=== PATIENT | male | born 1960 | race Caucasian/White ===

== ENCOUNTER 2020-07-04 17:00 | Outpatient (CLI) | payer BC, SELFPAY ==
--- NOTE | ~2020-07-04 | XR_ITS ---
EXAMINATION: XR chest 2V DATE: 07/04/2020 17:17 INDICATION: Paralysis of vocal cords and larynx. TECHNIQUE: Frontal and lateral views of the chest were obtained. COMPARISON: None. FINDINGS: The chest demonstrates clear lungs without pneumonia, pleural effusion, or pneumothorax. Th e heart size is normal. There is mild chronic anterior wedging of multiple midthoracic vertebral bodi es. IMPRESSION: 1. No acute cardiopulmonary disease. Reviewed, dictated and finalized at location A.
== END 2020-07-04 17:01 | disposition home or self-care (01) ==
PROVIDERS: Visit Provider Otolaryngology
DX: J38.00 Paralysis of vocal cords and larynx, unspecified (principal)
CPT/HCPCS: 71046

== ENCOUNTER 2020-07-31 17:30 | Outpatient (CLI) | payer BC, SELFPAY ==
--- NOTE | ~2020-07-31 | CT_ITS ---
EXAMINATION: CT soft tissue neck chest w EXAM DATE: 07/31/2020 18:16 INDICATION: J38.00 - Paralysis of vocal cords and larynx, for 3 months. TECHNIQUE: Spiral CT of the neck and chest was performed following intravenous injection of 75 mL Omn ipaque 350. Axial, coronal and sagittal images of the neck were reviewed. Axial, coronal and sagitt al images of the chest were reviewed. Coronal maximum intensity pixel images of chest reviewed. The dose-length product (DLP) for this examination was 1008.57 mGy-cm. The exposure was tailored accord ing to patient size (auto mA exposure control), and iterative reconstruction (ASIR) was used as addit ional dose reduction technique. There is no prior study for comparison. FINDINGS: NECK: Slight asymmetry in position of vocal cords, but both are nearly midline at time of imaging. No cervical, supraclavicular or aortopulmonary mass along expected location of laryngeal nerves. The t hyroid gland is unremarkable. The submandibular and parotid glands are symmetric. There is no cer vical lymphadenopathy. There are no masses identified. The airway is unremarkable. Parapharynge al and pre-glottic fat planes are preserved. The opacified vasculature is patent. Mild left carotid bulb arteriosclerosis, no stenosis. The orbits are unremarkable. Moderate ethmoid mucoperiosteal thickening. Small to moderate-sized maxillary sinus retention cysts. Mastoid air cells are well aerat ed. There is moderate cervical spondylosis. Mild cervical thoracic levoscoliosis. CHEST: Dependent groundglass opacity, subsegmental atelectasis. Some scattered faint groundglass nodu lar opacities appearance most consistent with mild nonspecific bronchiolitis. Mild emphysema. There are no pleural or pericardial effusions. Tracheobronchial tree is patent. There is no mediastinal , hilar or axillary lymphadenopathy. There is no pneumothorax. Heart normal in size. There is m ild coronary arterial calcification, arterial sclerosis. Upper abdomen is unremarkable. There is m ild to moderate thoracic spondylosis without osteoblastic or osteolytic lesions identified. IMPRESSION: 1. No cervical or thoracic mass. 2. Scattered faint lung groundglass opacities, mild nonspecific bronchiolitis. 3. Mild emphysema. 4. Some ethmoid and maxillary opacity. Reviewed, dictated and finalized at location B.
== END 2020-07-31 17:31 | disposition home or self-care (01) ==
LOC: ANHIMG 17:31
PROVIDERS: Visit Provider Otolaryngology
DX: J38.00 Paralysis of vocal cords and larynx, unspecified (principal); J43.9 Emphysema, unspecified; R91.8 Other nonspecific abnormal finding of lung field
CPT/HCPCS: 70491; 71260; Q9967

== ENCOUNTER 2020-09-13 01:35 | Day surgery (SDC) | payer BC, SELFPAY ==
[2020-09-11 09:59] VITALS: BMI 25.8
--- NOTE | 2020-09-11 14:28 | PM.IMHP ---
H&P: HPI History of Present Illness Date/Time: 09/11/20 14:28 Patient presents for planned surgical procedures no changes in history or symptoms. Chief Complaint: Hoarse voice left vocal cord paresis Review of Systems Constitutional: Constitutional: Denies fatigue, Denies fever(s) and Denies lethargy Eyes: Eyes: Denies blurry vision and Denies change in vision ENT: Reports as per HPI Cardiovascular: Cardiovascular: Denies chest pain Respiratory: Respiratory: Denies cough Endocrine: Endocrine: Denies fatigue Hematologic/Lymphatic: Hematologic/Lymphatic: Denies easy bleeding, Denies easy bruising and Denies lymphadenopathy Allergic/Immunologic: Allergic/Immunologic: Denies seasonal rhinorrhea [facility] Social History Social History (Updated 07/04/20 @ 09:41 by Lauren Valles MA) Smoking packs per day: 1 Smoking cigarettes per day: 20.0 Years smoked: 20 Smoking pack-years: 20.00 Smoking status: Current every day smoker Tobacco type: cigarettes Alcohol intake: current Drinks per week: 3 Substance use: never Spiritual care concerns: No Meds Home Medications and Allergies Home Medications Medication Instructions Recorded Confirmed Type No Home Medications 07/04/20 09/11/20 History Allergies Allergy/AdvReac Type Severity Reaction Status Date / Time No Known Allergies Allergy Unknown Verified 09/11/20 09:57 Exam Const: General: cooperative, healthy appearing, comfortable, well developed and alert HENMT: Head: normal to inspection, normocephalic and atraumatic Ears: hearing grossly normal bilaterally, external ears normal, TM's normal bilaterally and EAC's normal General nose exam: Normal external nose present, Normal nares present, No nasal polyps present, Normal nasal mucous membranes and turbinates present and Normal septum present Face and sinus: normal facial exam Mouth: Yes Normal oral and palatal mucosa present, Yes lip normal, Yes tongue normal, Yes oropharynx normal and Yes moist mucous membranes Teeth and gingiva: dentition normal and gingiva normal Throat: posterior oropharynx normal, tonsils normal and uvula midline Eyes: General: appearance normal, both eyes and all related structures Periorbital: periorbital findings normal Eyelids: eyelids normal Conjunctivae: conjunctivae normal Sclera: sclerae normal Neck: Neck: normal visual inspection, full ROM and no lymphadenopathy Thyroid: thyroid normal Lymphatic: no lymphadenopathy noted Resp: Effort & Inspection: normal respiratory effort and able to speak in complete sentences Cardio: Jugular venous distension: no JVD Neuro: Cranial nerves: Yes CN's II-XII intact bilaterally Assessment and Plan Assessment and plan (1) Hoarseness: Code(s): R49.0 - Dysphonia Status: Acute Assessment and Plan: plan is for the operating room for direct laryngoscopy with endoscopic view. 20 minutes time period injection of left vocal cord with short-acting prolaryn. risks were discussed including need for tracheostomy damage to vocal cords need for further procedures failure to resolve symptoms. Patient voiced understanding of these risks and agreed. (2) Paresis of left vocal cord: Code(s): J38.01 - Paralysis of vocal cords and larynx, unilateral Status: Acute (3) Vocal cord weakness: Code(s): J38.00 - Paralysis of vocal cords and larynx, unspecified Status: Acute
[2020-09-13] VITALS (9 sets, daily range): BP systolic 117–173; BP diastolic 66–93; PULSE 42–52; RESP 10–18; TEMP 36.8–37; O2SAT 95–100
--- NOTE | 2020-09-13 07:03 | WPDHPUPDATE1 ---
History and Physical Update Update Date/Time: 09/13/20 07:03 History and Physical has been reviewed, including an updated exam of the patient. There are NO changes in the patient's condition. Risks, benefits, and alternatives have been discussed and questions answered. Patient agrees to proceed with procedure.
--- NOTE | 2020-09-13 10:04 | ECG_ITS ---
Measurements Intervals [place] Rate: 47 P: 47 [place]: 134 QRS: 7 QRSD: 99 T: 22 QT: 486 QTc: 434 Interpretive Statements SINUS BRADYCARDIA ABNORMAL ECG Electronically Signed On 09-13-2020 12:41:58 CDT by Baldomero Rivera D.O.
[2020-09-13] MEDS: ACETAMINOPHEN 500 MG TABLET 1000 MG PO (11:29)
[2020-09-13] MEDS: LACTATED RINGERS 1,000 ML 30 ML IV CONT ×2 (11:41→14:20)
--- NOTE | 2020-09-13 12:39 | P.PNAN_ITS ---
Anes - Initial Pre Proc Eval Procedure: Operation Date: 09/13/20 13:00 Proposed Procedures p Direct Laryngoscopy, with Vocal Cord Injection - David Floyd MD Date/Time: 09/13/20 12:39 Surgeon: David Floyd MD Pre Op Diagnosis: paralyzed vocal cords Patient Data Age: 60 Gender: M Height: 1.83 m Weight: 87.15 kg Last Vital Signs Temp 37.0 C 09/13/20 11:16 Pulse 52 L 09/13/20 11:16 Resp 16 09/13/20 11:16 BP 173/87 H 09/13/20 11:16 Pulse Ox 97 09/13/20 11:16 Allergies Allergy/AdvReac Type Severity Reaction Status Date / Time No Known Allergies Allergy Unknown Verified 09/13/20 11:18 Home Medications Medication Instructions Recorded Confirmed Type No Home Medications 07/04/20 09/13/20 History Patient hx anesthesia problems: none Family hx anesthesia problems: none [facility] Past Medical History Medical History (Updated 09/13/20 @ 12:40 by Brody Hernandez MD) Smoker Spermatocele Social History Social History Smoking packs per day: 1 Smoking cigarettes per day: 20.0 Years smoked: 20 Smoking pack-years: 20.00 Smoking status: Current every day smoker Tobacco type: cigarettes Alcohol intake: current Drinks per week: 3 Substance use: never Living arrangements: with family Spiritual care concerns: No Anes - Eval Final PreProcedure Day of Procedure 09/13/20 12:39 Patient weight: overweight Heart: regular rate and rhythm Lungs: clear to auscultation Airway: Mallampati scale class II Neurological: alert and oriented Last oral intake: >/= 8 hours ASA classification: II Emergent: no Anesthetic plan: proceed Anesthesia type and monitoring: general ETT and standard monitoring Informed Consent: The patient's anesthetic plan and its attendant risks and benefits were discussed with the patient/family/POA. Questions were solicited and answers provided to the satisfaction of the patient/family/POA.
[2020-09-13] MEDS: OXYMETAZOLINE HCL 0.05% NAS 15 ML BTL (*BKC) 1 SPRAY NASAL (13:44)
--- NOTE | 2020-09-13 14:04 | W.PM.PROC2 ---
Procedure Note - Detailed Date of Procedure 09/13/20 Pre-op Diagnosis left vocal cord paresis, hoarse voice Post-op Diagnosis same Procedure Performed 1. Direct laryngoscopy 2. Injection of left vocal cord Surgeon David Floyd MD Zoning Administrator none Anesthesia general Indications see above Findings 0.9 CC of Prolaryn gel injected just lateral to the thyroarytenoid muscle/complex. medialization of the left paretic cord Description of Procedure the patient was correctly identified and consent was verified in the preoperative holding area. The patient was then brought to the operating room and a time-out was performed. General anesthesia was induced and endotracheal tube was secured the patient's airway. The bed was then rotated and patient prepped for the aforementioned procedure. Maxillary tooth mouth guard was placed and all the instrumentation set up properly. Direct laryngoscopy was performed with the [employer] laryngoscope. The vocal cords were brought into view of the left was mildly atrophied. And more lateral than the right. Under endoscopic guidance the injectable was deposited lateral to the thyroid arytenoid musculature / complex medialization was noted. Two stab sites were made and injected. A total of 0.9 cc was injected. Excess was suctioned off of the injected sites. The patient was taken out of suspension, laryngoscope removed, and maxillary tooth mouth guard removed. This marked the end of the procedure. I performed all dictated portions. Care the patient was turned over to Anesthesiology. Drains No Packing No Pathology none sent Complications No immediate complications Condition stable Disposition PACU
== END 2020-09-13 15:30 | disposition home or self-care (01) ==
PROVIDERS: Visit Provider Otolaryngology
PROC: 0CJS8ZZ Inspection of Larynx, Via Natural or Artificial Opening Endoscopic (ICD-10-PCS; CPT 31570; principal; 2020-09-13 13:00)
DX: J38.01 Paralysis of vocal cords and larynx, unilateral (principal); R49.0 Dysphonia; F17.210 Nicotine dependence, cigarettes, uncomplicated
CPT/HCPCS: 31570; 93005; A9270; C1878; J0330; J1100; J2250; J2405; J2704; J3010; J7120

== ENCOUNTER 2023-10-01 09:44 | Observation (INO) | payer BC, SELFPAY ==
[2023-10-01] VITALS (8 sets, daily range): BP systolic 128–141; BP diastolic 75–87; PULSE 52–70; RESP 18–20; TEMP 36.2–36.6; O2SAT 92–97; BMI 28.9
--- NOTE | ~2023-10-01 | XR_ITS ---
EXAMINATION: XR chest 2V DATE: 10/01/2023 10:31 INDICATION: Chest pain. Shortness of breath. TECHNIQUE: Frontal and lateral views of the chest were obtained. COMPARISON: Chest 2 views 07/04/2020, chest CT 07/31/2020 FINDINGS: There is no pneumonia, pleural effusion, or pneumothorax. The heart size is normal. There i s mild chronic anterior wedging of multiple vertebral bodies. IMPRESSION: 1. No acute cardiopulmonary disease. Reviewed, dictated and finalized at location A.
--- NOTE | 2023-10-01 09:48 | ECG_ITS ---
Test Date: 2023-10-01 09:49:54 Measurements Intervals [place] Rate: 65 P: 58 NM: 136 QRS: -2 QRSD: 94 T: 33 QT: 402 QTc: 418 Interpretive Statements SINUS RHYTHM NORMAL ELECTROCARDIOGRAM No previous ECG available for comparison Electronically Signed On 10-01-2023 11:35:52 CDT by Hamlet Sharpe M.D.
[2023-10-01 10:21] LABS: Basophils Absolute Auto 0.1 K/mm3 (0.0-0.1); Basophils Percent Auto 0.6 % (0.2-1.2); Eosinophils Absolute Auto 0.2 K/mm3 (0-0.3); Eosinophils Percent Auto 2.6 % (0-4.4); Hematocrit 42.4 % (42.0-52.0); Hemoglobin 14.4 g/dL (14.0-18.0); Immature Granulocyte Absolute 0.03 K/mm3 (0.00-0.031); Immature Granulocyte Percent A 0.3 % (0-0.5); Lymphocytes Absolute Auto 2.52 K/mm3 (0.9-3.2); Lymphocytes Percent Auto 28.4 % (18.3-44.2); Mean Corpuscular Hemoglobin 33.6 pg (26-34); Mean Corpuscular Volume 99.1 fl (80-100); Monocytes Absolute Auto 0.7 K/mm3 (0.1-0.6); Monocytes Percent Auto 7.7 % (2.6-8.5); Neutrophils Absolute Auto 5.4 K/mm3 (1.3-6.7); Neutrophils Percent Auto 60.4 % (45.5-73.1); Platelet Count Result 227 k/mm3 (150-375); Red Blood Count 4.28 M/mm3 (4.6-6.20); Red Cell Distribution Width 13.7 % (11.5-14.5); White Blood Count 8.9 K/mm3 (4.5-10.0)
[2023-10-01 10:22] LABS: INR 0.9; Prothrombin Time 12.9 Seconds (11.1-14.7)
[2023-10-01 10:25] LABS: Alanine Aminotransferase 21 U/L (6-50); Albumin Level 4.6 g/dL (3.5-5.1); Alkaline Phosphatase 85 U/L (38-126); Anion Gap 6 mmol/L (4-12); Aspartate Amino Transferase 30 U/L (17-59); Bilirubin,Total 0.6 mg/dL (0.2-1.3); Blood Urea Nitrogen 16 mg/dL (9-20); Calcium 9.2 mg/dL (8.4-10.2); Carbon Dioxide 26 mmol/L (22-30); Chloride 106 mmol/L (98-107); Estimated CRCL calculation 82 ml/min; Estimated Glomerular Filt Rate > 60; Glucose 121 mg/dL (65-110); Lipase 67 U/L (23-300); Potassium 4.3 mmol/L (3.4-5.0); Sodium 138 mmol/L (137-145)
[2023-10-01 10:42] LABS: Troponin I 0.065 ng/mL (0.000-0.034)
[2023-10-01] MEDS: ASPIRIN 81 MG CHEWABLE TABLET 324 MG PO (11:02)
--- NOTE | 2023-10-01 11:05 | ED.CHESTPAIN ---
HPI - Chest Pain General Chief Complaint: Chest Pain Stated Complaint: chest pain Time Seen by Provider: 10/01/23 10:55 History of Present Illness HPI narrative: Patient is a 63-year-old male who presents ER with chest pain. Pressure in the center of his chest. Associated with dyspnea and weakness. This has been occurring over the last 3 days and only occurs when he exerts himself such as walking up stairs or walking across his home. It takes several meds for the symptoms to go away when he rests. No history of heart disease. He is a pack-a-day smoker. Recently return from [place]. Fluid back. No leg swelling. No pain with deep breath. No hemoptysis. Did have sinus congestion sore throat and cough for about a week after returning an it dissipated prior to his chest pain starting. Related Data Home Medications Medication Instructions Recorded Confirmed amlodipine 10 mg tablet 10 mg PO DAILY 10/01/23 10/01/23 Allergies Allergy/AdvReac Type Severity Reaction Status Date / Time No Known Allergies Allergy Unknown Verified 09/13/20 11:18 Review of Systems Review of Systems: All systems reviewed & are unremarkable except as noted in HPI and below Constitutional: Constitutional: Reports no additional constitutional complaints ENT: Reports nasal congestion and Reports sore throat Cardiovascular: Cardiovascular: Reports chest pain, Denies rapid heart rate and Denies radiating jaw, neck or arm pain Respiratory: Respiratory: Denies chest congestion, Reports cough, Reports dyspnea and Denies wheezing Gastrointestinal: Gastrointestinal: Reports no additional gastrointestinal complaints Musculoskeletal: Musculoskeletal: Reports no additional musculoskeletal complaints [facility] Past Medical History Medical History Smoker Spermatocele Surgical History Surgical History No history of previous surgery Social History Social History Smoking packs per day: 1 Smoking cigarettes per day: 20.0 Years smoked: 20 Smoking pack-years: 20.00 Smoking status: Current every day smoker Tobacco type: cigarettes Second hand tobacco smoke exposure: Yes Alcohol intake: current Drinks per week: 4 Substance use: never Substance use type: does not use Do You Feel Safe in your Home?: Yes Lack of Transportation: No Lack of Food: Never True Current Housing: I Have Housing Concerned About Future Housing: No Difficulty Paying Gas/Electric Bills: No Difficulty Paying for Meds: No Currently Unemployed: No Education: Bachelor's Degree Difficulty w/ Childcare or Family Care: No Living arrangements: with family Spiritual care concerns: No Exam Narrative: GENERAL: Well-appearing, well-nourished, and in no acute distress. HEAD: Normocephalic, atraumatic. EYES: PERRL. Left eye strabismus ENT: Mucous membranes moist. CHEST: Clear to auscultation. No respiratory distress. HEART: Regular rate and rhythm. Normal peripheral pulses. ABDOMEN: Soft, nontender, nondistended,. EXTREMITIES: Normal range of motion. No edema. SKIN: Warm, dry, no rash. NEURO: Alert and oriented x3. PSYCH: Normal mood and affect. Course Vital Signs Vital signs: Vital Signs Temperature 97.2 F L 10/01/23 09:49 Pulse Rate 70 10/01/23 09:49 Respiratory Rate 19 10/01/23 09:49 Blood Pressure 136/82 10/01/23 09:49 Pulse Oximetry 97 10/01/23 09:49 Oxygen Delivery Room Air 10/01/23 09:49 Temperature 97.8 F 10/01/23 13:01 Pulse Rate 55 L 10/01/23 14:00 Respiratory Rate 18 10/01/23 13:01 Blood Pressure 140/75 10/01/23 13:01 Pulse Oximetry 92 10/01/23 13:01 Oxygen Delivery Room Air 10/01/23 12:13 MDM - Chest Pain MDM Narrative Medical decision making narrative: -Course: Resting comfortably in the ER. No kian
[2023-10-01] MEDS: ENOXAPARIN 100 MG/ML SYRINGE 98 MG SUB-Q (12:04)
--- NOTE | 2023-10-01 12:42 | PM.IMHP ---
H&P: HPI History of Present Illness Date/Time: 10/01/23 12:42 Chief Complaint: Chest Pain Narrative: 63 y/o M presents here with chest pain with PMH of HTN and tobacco use. The patient presents here from home for further evaluation of chest pain. The patient reports onset of midsternal chest pain 2 to 3 days ago. Pain has gradually been worsening. Patient describes the chest pain as aching/burning, radiating into shoulders and bilateral arms (onset today), intermittent, episodes lasting an hour on average, aggravated by activity (walking up a flight of stairs, walking across the length of his home, or nay activity where he is moving for a slightly extended period), and alleviated by rest. Chest pain was precipitated by recent upper respiratory infection that began 2 weeks ago post-vacation. Reported sinus congestion, chest congestion, and minimally productive cough for one week. Cardiac history - none. Family history of cardiac disease - none. Drug use - none. The patient is a current every day smoker, estimates he uses 1PPD for the past 28 years approximately. Initial VS at presentation: 97.2? F, HR 70, RR 19, 136/82, and 97% on RA. ED workup showed: No leukocytosis, no anemia, normal coags, no significant electrolyte derangements, creatinine 0.9 and GFR >60, glucose 121, and initial troponin 0.065. Review of Systems Review of Systems: All systems reviewed & are unremarkable except as noted in HPI and below PMFSH Past Medical History Medical History HTN (hypertension) Smoker Spermatocele Surgical History Surgical History No history of previous surgery Social History Social History Smoking packs per day: 1 Smoking cigarettes per day: 20.0 Years smoked: 20 Smoking pack-years: 20.00 Smoking status: Current every day smoker Tobacco type: cigarettes Second hand tobacco smoke exposure: Yes Alcohol intake: current Drinks per week: 4 Substance use: never Substance use type: does not use Do You Feel Safe in your Home?: Yes Lack of Transportation: No Lack of Food: Never True Current Housing: I Have Housing Concerned About Future Housing: No Difficulty Paying Gas/Electric Bills: No Difficulty Paying for Meds: No Currently Unemployed: No Education: Bachelor's Degree Difficulty w/ Childcare or Family Care: No Living arrangements: with family Spiritual care concerns: No Meds Home Medications and Allergies Home Medications Medication Instructions Recorded Confirmed Type amlodipine 10 mg tablet 10 mg PO DAILY 10/01/23 10/01/23 History Allergies Allergy/AdvReac Type Severity Reaction Status Date / Time No Known Allergies Allergy Unknown Verified 10/01/23 15:33 Vital Signs Vital Signs - 24 hr 10/01/23 09:49 10/01/23 12:13 10/01/23 10:47 Temperature 97.2 F L Pulse Rate 70 60 Respiratory Rate 19 20 Blood Pressure 136/82 135/75 Pulse Oximetry 97 94 Oxygen Delivery Room Air Room Air 10/01/23 11:07 10/01/23 11:31 10/01/23 12:01 Temperature 97.8 F 97.9 F Pulse Rate 55 L 58 L 55 L Respiratory Rate 18 19 18 Blood Pressure 128/85 135/79 134/83 Pulse Oximetry 96 96 97 Oxygen Delivery 10/01/23 12:31 Temperature Pulse Rate 52 L Respiratory Rate 18 Blood Pressure 141/87 H Pulse Oximetry 97 Oxygen Delivery Exam Const: General: comfortable and no acute distress Other: , male, nontoxic appearance HENMT: Face/Nose/Sinus: Normal nares present Mouth: Yes moist mucous membranes Eyes: General: appearance normal, both eyes and all related structures Sclera: sclerae normal Pupils: Equal, round and reactive pupils present EOM: EOMs intact bilaterally Resp: Effort & Inspection: normal respiratory effort Auscultation: clear to auscultation bilaterally
--- NOTE | 2023-10-01 13:29 | ECG_ITS ---
Test Date: 2023-10-01 13:32:15 Measurements Intervals [place] Rate: 59 P: 49 NC: 146 QRS: 1 QRSD: 106 T: 14 QT: 425 QTc: 421 Interpretive Statements SINUS BRADYCARDIA MINIMAL VOLTAGE CRITERIA FOR LVH, CONSIDER NORMAL VARIANT [MEETS CRITERIA IN ONE OF: R(aVL), S(V1), R(V5), R(V5/V6)+S(V1)] ESSENTIALLY NORMAL ECG Compared to ECG 10/01/2023 09:49:54 NO SIGNIFICANT CHANGE Electronically Signed On 10-01-2023 18:19:57 CDT by Hamlet Sharpe M.D.
[2023-10-01 13:49] LABS: Cholesterol 184 mg/dL (0-200); HDL Direct 43 mg/dL; Triglycerides 107 mg/dL (<150)
[2023-10-01 13:59] LABS: LDL Cholesterol Direct 122 mg/dL
[2023-10-01 14:03] LABS: NT Pro B Type Natriuretic Pept 96 pg/mL (19.9-100); Troponin I 0.177 ng/mL (0.000-0.034)
--- NOTE | 2023-10-01 15:00 | ADMGEN ---
This patient, Dmitri Araya Jr., was admitted to IMU Room 212-01. Patient/family oriented to hospital policies and general routines including ID bracelet, bed and alarms, visiting hours, pain management, procedures, bathroom and other care routines, personal items, smoking policy, room service/diet, and visiting hours. Information on how to activate the Rapid Response Team has been discussed. Patient/Family are encouraged to report perceived risks to care and to ask questions if they do not understand what they are told or what they should do.
[2023-10-01 15:01] LABS: Hemoglobin A1C 5.7 % (<5.7)
--- NOTE | 2023-10-01 15:01 | PM.CNCAR ---
Assessment and Plan Assessment and plan (1) Unstable angina: Code(s): I20.0 - Unstable angina Status: Acute Plan this is a 63-year-old man presenting with the recent onset of symptoms consistent with an concerning for myocardial ischemia. He has no prior coronary history does have hypertension longstanding cigarette smoking. Fortunately his electrocardiogram looks normal however his troponin level has had a modest rise consistent with acute syndrome we will arrange for coronary angiography this afternoon and further recommendations of 4th will be forthcoming based on those findings Hamlet Sharpe MD [facility] History of Present Illness History of Present Illness Consult date/time: 10/01/23 15:01 Reason For Visit: Unstable Angina Narrative: This is a 63-year-old man who is being seen at the request of the hospitalist because of exertional chest pain consistent with new onset angina. The patient has no prior cardiac history and reports that he has been feeling somewhat unwell since he recently returned home from a vacation in [place]. He felt that he was ill with some sort of a virus with some chest congestion on the airplane and this continued after he arrived back at home. He might have been running S low-grade fever but he really did take his temperature. In the last several days the symptoms changed where he is having chest pain with exertion. Describes that with mild activity such as walking in the home or climbing a flight of stairs he will have central chest pain associated with dyspnea. The symptoms were more problematic earlier this morning and so he came to the emergency room for evaluation. His electrocardiograms look normal but his troponin levels were slightly elevated on the 1st sample and have her is to just over 0.1 on the 2nd sample. He was seen in the emergency room given aspirin a dosage of Lovenox and admitted to the [facility]. Upon seeing him in the IMU he is comfortable his son is in the room visiting came in to see him. He states that he has a history of hypertension for which he takes amlodipine but no other significant known medical problems. He is a long-standing cigarette smoker he has no knowledge of dyslipidemia or diabetes. There is no family history of coronary disease that he can recall Review of Systems Constitutional: Constitutional: Reports no additional constitutional complaints Eyes: Eyes: Reports no additional eye complaints ENT: Reports system reviewed and no additional complaints, except as documented Cardiovascular: Cardiovascular: Reports as per HPI and Reports chest pain Respiratory: Respiratory: Reports dyspnea on exertion Gastrointestinal: Gastrointestinal: Reports no additional gastrointestinal complaints Genitourinary: Genitourinary: Reports no additional male genitourinary complaints Musculoskeletal: Musculoskeletal: Reports no additional musculoskeletal complaints Integumentary/Breasts: Skin/Breast: Reports system reviewed and no additional complaints, except as docu Neurologic: Reports system reviewed and no additional complaints, except as documented Endocrine: Endocrine: Reports no additional endocrine complaints Hematologic/Lymphatic: Hematologic/Lymphatic: Reports no additional hematologic/lymphatic complaints Allergic/Immunologic: Allergic/Immunologic: Reports no additional allergic/immunologic complaints PMFSH Past Medical History Medical History Smoker Spermatocele Surgical History Surgical History No history of previous surgery Social History Social History Smoking packs per day: 1 Smoking cigarettes per day: 20.0 Years smoked: 20 Smoking pack-years: 20.00 Smoking status: Current every day smoker Tobacco type: cigarettes Second hand tobacco smoke exposure: Yes Alcohol
--- NOTE | 2023-10-01 15:05 | WPDMODSED ---
Moderate Sedation Note-Pt Data Patient Data Diagnosis: unstable angina Present Complaint: exertional chest pain Procedure to be performed/Plan: left heart catheterization Allergies Allergy/AdvReac Type Severity Reaction Status Date / Time No Known Allergies Allergy Unknown Verified 09/13/20 11:18 Home Medications Medication Instructions Recorded Confirmed Type amlodipine 10 mg tablet 10 mg PO DAILY 10/01/23 10/01/23 History Current Medications: Active Medications Acetaminophen (Acetaminophen 325 Mg Tablet) 650 mg PO Q4H PRN PRN Reason: Mild Pain (1-3) or Fever Hydrocodone Bitart/Acetaminophen (Hydrocodone/Acetaminophen (*Crx) 5-325 Mg Tablet) 1 tab PO Q4H PRN PRN Reason: Pain Rated 4-6 Enoxaparin Sodium (Enoxaparin 100 Mg/Ml Syringe) 98 mg SUB-Q Q12HR ISIDORO Morphine Sulfate (Morphine Sulfate (*Crx) 2 Mg/Ml Inj) 2 mg IV PUSH Q2H PRN PRN Reason: Pain Rated 7-10 Nitroglycerin (Nitroglycerin Sl 0.4 Mg Tablet) 0.4 mg SUBLINGUAL Q5MIN PRN PRN Reason: Chest Pain Ondansetron HCl (Ondansetron Inj 4 Mg/2 Ml Vial) 4 mg IV PUSH Q4H PRN PRN Reason: Nausea Sedation/Anesthesia: No previous sedation/anesthesia problems (including family history). [facility] Past Medical History Medical History Smoker Spermatocele Surgical History Surgical History No history of previous surgery Social History Social History Smoking packs per day: 1 Smoking cigarettes per day: 20.0 Years smoked: 20 Smoking pack-years: 20.00 Smoking status: Current every day smoker Tobacco type: cigarettes Second hand tobacco smoke exposure: Yes Alcohol intake: current Drinks per week: 4 Substance use: never Substance use type: does not use Do You Feel Safe in your Home?: Yes Lack of Transportation: No Lack of Food: Never True Current Housing: I Have Housing Concerned About Future Housing: No Difficulty Paying Gas/Electric Bills: No Difficulty Paying for Meds: No Currently Unemployed: No Education: Bachelor's Degree Difficulty w/ Childcare or Family Care: No Living arrangements: with family Spiritual care concerns: No Mod Sed Physical Exam Physical Exam Pre Procedural Exam: Normal: Appearance, Neck, Throat, Airway, Lungs, Heart Size, Heart Rate, Heart Rhythm, Neuro Exam and Extremities Hours since solid foods: 12 Hours since liquid intake: 12 Mallampati Classification: class II Internal Medicine - PN: Obj Da Vital Signs Vital Signs: Vital Signs - 24 hr 10/01/23 09:49 10/01/23 12:13 10/01/23 10:47 Temperature 36.2 C L Pulse Rate 70 60 Respiratory Rate 19 20 Blood Pressure 136/82 135/75 Pulse Oximetry 97 94 Oxygen Delivery Room Air Room Air 10/01/23 11:07 10/01/23 11:31 10/01/23 12:01 Temperature 36.6 C 36.6 C Pulse Rate 55 L 58 L 55 L Respiratory Rate 18 19 18 Blood Pressure 128/85 135/79 134/83 Pulse Oximetry 96 96 97 Oxygen Delivery 10/01/23 12:31 10/01/23 13:01 Temperature 36.6 C Pulse Rate 52 L 61 Respiratory Rate 18 18 Blood Pressure 141/87 H 140/75 Pulse Oximetry 97 92 Oxygen Delivery Meds/Results Medications: Active Medications Generic Name Dose Route Start Last Admin Trade Name Freq PRN Reason Stop Dose Admin Acetaminophen 650 mg 10/01/23 12:31 Acetaminophen 325 Mg Tablet PO Q4H PRN Mild Pain (1-3) or Fever Hydrocodone Bitart/Acetaminophen 1 tab 10/01/23 12:31 Hydrocodone/Acetaminophen (*Crx) 5-325 Mg Tablet PO Q4H PRN Pain Rated 4-6 Enoxaparin Sodium 98 mg 10/01/23 21:00 Enoxaparin 100 Mg/Ml Syringe SUB-Q Q12HR ISIDORO Morphine Sulfate 2 mg 10/01/23 12:31 Morphine Sulfate (*Crx) 2 Mg/Ml Inj IV PUSH Q2H PRN Pain Rated 7-10 Nitroglycerin 0.4 mg 10/01/23 14:13 Nitroglycerin Sl 0.4 Mg Tablet SUBLINGUAL
--- NOTE | 2023-10-01 15:21 | PC.NURSE ---
Dr veliz has been in to speak with pt and is recommending a cardiac cath, consent is signed, OR tech is here to get pt ready and take him down, lia koenig is also in the room to see pt, son will go with them to pacu
--- NOTE | 2023-10-01 15:34 | PC.NURSE ---
pt taken up to rd lab technician with tech
--- NOTE | 2023-10-01 16:51 | PC.NURSE ---
pt belongings sent with son up to offset label rewinder
--- NOTE | 2023-10-01 17:17 | WPDCARDPROC ---
Cardiac Cath Procedure Note Date of procedure:: 10/01/23 Performing physician:: Hamlet Sharpe MD Indication:: accelerating/unstable angina Brief clinical history:: this is a 63-year-old man with no previous coronary history who came into the hospital earlier today with 4-5 day history of exertional chest pain typical of angina. His electrocardiogram was normal but he has had a mole small troponin rise. The patient does have hypertension and cigarette smoke in his history. In this setting left heart catheterization has been recommended. Procedure Procedure performed:: Left ventriculogram coronary angiogram PCI (JUAREZ) to the proximal LAD Sedation/Medication given:: fentanyl 50 mg Versed 2 mg case start time 154 case end time 4:28 p.m. sedation provided by Kera Mccarthy RN, trained observer Access site:: right femoral artery Estimated blood loss:: 25 cc Procedure note:: patient was brought to the cardiac catheterization lab in the postabsorptive state where the right femoral triangle was prepared and draped in the normal fashion. Anesthesia was provided with 1% lidocaine infiltrated locally. Using modified Seldinger technique a 5 [place] sheath was placed into the right femoral artery. After this left heart catheterization was carried out. A 5 [place] angled pigtail catheter was used to measure left-sided hemodynamics and to inject LV g in the 30 degree MOORE projection. Following this the left coronary artery was engaged and injected using a 5 [place] FL4 catheter. The right coronary artery was engaged and injected using a 5 [place] JR4 catheter. The cineangiograms were reviewed and PCI of the LAD was recommended and carried out as detailed below. Prior to PCI the 5 [place] sheath was exchanged over a guidewire for 6 [place] sheath. The patient was systemically anticoagulated with a bolus and infusion of Angiomax. He was given 600 mg of clopidogrel orally prior to PCI. He had received 325 mg of aspirin in the emergency room and was given no additional aspirin in the cath lab nurse. Following completion of PCI to the LAD lesion as described below it was obvious the patient had contrast staining proximal to the stent in the proximal LAD and distal left main. Subsequent angiography demonstrated obvious catheter dissection of the left main coronary artery. There was still JOEY 3 flow in the left coronary artery however. Patient does have ischemic ST segment depression and moderate ischemic chest pain at this time. Given the fact that he has a catheter related left main dissection he is being transferred by helicopter anticoagulated with heparin to [facility] for high-risk PCI of the left main coronary artery versus surgical revascularization. Findings:: Hemodynamics: Central aortic pressure was 1 38 68 left ventricle 138 over by end-diastolic pressure 16 left ventricle: The LV is normal in size all segments contract vigorously the global ejection fraction is 60-65% by visual estimation. The mid anterior wall is slightly hypodynamic. The left main coronary artery is medium in caliber and widely patent the left anterior descending is a large caliber vessel extending down to the apex. There is a high-grade stenosis of 80-90% in the proximal LAD in the origin of the proximal diagonal branch which is a medium caliber vessel. There is distal plaquing in the LAD but no flow-limiting disease. The circumflex is a large caliber vessel which is dominant to the posterior circulation. The circumflex , its marginal and posterior branches are free of significant disease. The right coronary artery is non dominant gives rise to 2 RV branches. There is mild nonocclusive atherosclerosis in the RCA. Intervention: The left coronary artery was engaged using a 6 [place] CLS 3.5 guiding catheter. A 0.014 BMW wire was advanced into the LAD easily into the distal apical portion of the vessel. Th
--- NOTE | 2023-10-01 21:26 | PM.TDS ---
Transfer Discharge Sum: Prov Provider Date of admission: 10/01/23 12:32 Primary care physician: UNKNOWN,DOCTOR Admitting clinician: Chucky Villalpando MD Attending physician on admission: Grady Villalpando Consults: 10/01/23 12:33 Consult to Physician Routine Comment: Consulting Provider: Hamlet Sharpe Reason for consultation: unstable angina Has provider been notified: Yes Attending physician on discharge: Martha Bob Discharging clinician: Malissa Corrales Anticipated date of transfer: 10/01/23 Receiving physician/facility: [place], [place] DS: Admitting Diagnosis Discharge Date 10/01/23 Admitting Diagnosis Unstable angina DS: Discharge Diagnosis Discharge Diagnosis Plan Discharge Diagnosis: 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 Initial troponin elevated at 0.065. Started on Lovenox 1 mg/kg b.i.d. Cardiology was consulted and elected to move forward with a cardiac catheterization this afternoon after shared decision making with patient. During the cardiac catheterization, patient was found to have high-grade stenosis of 80-90% in the proximal LAD in the origin of the proximal diagonal branch which is a medium caliber vessel. There is distal plaquing in the LAD but no flow-limiting disease. PCI to the proximal LAD lesion, as described in cardiac cath report, with a nice angiographic result in that vessel however the angiograms demonstrate occlusion of the medium-sized proximal diagonal branch which was at the site of the target lesion as well as unfortunate catheter-induced dissection of the left main coronary artery. Due to the dissection, patient was emergently transferred via helicopter to [facility] for higher level of care. Transfer initiated and completed by Dell TRINIDAD. Time Spent with Patient Time attestation: Total time spent providing and/or coordinating transfer services: Total time spent: Less than 30 minutes Exam Const: General: comfortable and no acute distress Other: , male, nontoxic appearance HENMT: Face/Nose/Sinus: Normal nares present Mouth: Yes moist mucous membranes Eyes: General: appearance normal, both eyes and all related structures Sclera: sclerae normal Pupils: Equal, round and reactive pupils present EOM: EOMs intact bilaterally Neck: Neck: supple and no JVD Resp: Effort & Inspection: normal respiratory effort Auscultation: clear to auscultation bilaterally Cardio: Rate: regular rate Rhythm: regular rhythm Other: S1-S2 present without murmur, rub, ectopy Skin: General skin exam: normal color and no rashes or lesions noted Wounds: no wounds Neuro: General: gait normal Speech: normal speech Motor exam (neuro): 5/5 motor strength present throughout Sensory Exam: normal sensation Other: A&O x4 Extrem: General: normal to inspection Psych: Mental Status: mental status grossly normal Affect: normal affect Other: Good insight and judgment, pleasant DS: Data Data Completed and Pending Labs on day of discharge: Labs from last 24 hours 10/01/23 10/01/23 13:29 09:56 WBC 8.9 RBC 4.28 L Hgb 14.4 Hct 42.4 MCV 99.1 MCH 33.6 MCHC 34.0 RDW 13.7 Plt Count 227 MPV 10.0 Immature Gran % (Auto) 0.3 Neut % (Auto) 60.4 Lymph % (Auto) 28.4 [place] % (Auto) 7.7 Eos % (Auto) 2.6 Baso % (Auto) 0.6 Lymph # (Auto) 2.52 [place] # (Auto) 0.7 H Eos # (Auto) 0.2 Baso # (Auto) 0.1 Abs Immat Gran (auto) 0.03 Absolute Neuts
== END 2023-10-01 17:43 | disposition short-term general hospital (02) ==
LOC: ANHED 11:33 → ANHIMU 13:26
PROVIDERS: Specialist; Student in an Organized Health Care Education/Training Program; Admitting Provider Internal Medicine; Emergency Provider Emergency Medicine; Visit Provider Internal Medicine
PROC: 4A023N7 Measurement of Cardiac Sampling and Pressure, Left Heart, Percutaneous Approach (ICD-10-PCS; CPT 93452; principal; 2023-10-01 15:00)
DX: I25.110 Atherosclerotic heart disease of native coronary artery with unstable angina pectoris (principal); I97.51 Accidental puncture and laceration of a circulatory system organ or structure during a circulatory system procedure; I25.42 Coronary artery dissection; Y84.0 Cardiac catheterization as the cause of abnormal reaction of the patient, or of later complication, without mention of misadventure at the time of the procedure; I10 Essential (primary) hypertension; F17.210 Nicotine dependence, cigarettes, uncomplicated; Z79.899 Other long term (current) drug therapy
CPT/HCPCS: 36415; 71046; 80053; 80061; 83036; 83690; 83880; 84484; 85025; 85610; 85730; 93005; 93458; 96372; 99285; A9270; C1725; C1769; C1874; C1887; C1894; C9600; G0378; J0583; J1644; J1650; J2250; J2270; J3010; J7040

== ENCOUNTER 2024-04-26 08:50 | Outpatient (CLI) | payer BC, SELFPAY ==
--- OUTSIDE RECORDS SUMMARY | 2024-04-26 09:24 | XMS_ITS | Referral Summary ---
Author Organization [facility] Address [address] [place] [address] Care Team Providers Care Brusher Warp Name Role Phone Rosalino Saleem DO Primary Care Provider [phone] Source Comments [facility],non-owned Affiliates and Associated Physician Practices is amultiple site organization consisting of ambulatory clinics and hospital sitesin [place], [place], [place] and [place]. This disclosure is being madepursuant to the Care Everywhere program and may not contain all information available regarding this patient. Last updated 17.[facility] [place] Allergies No known active allergies Social History Tobacco Use Types Packs/Day Years Used Date Smoking Tobacco: Never Assessed Sex and Gender Information Value Date Recorded Sex Assigned at Not on file Gender Identity Not on file Sexual Orientation Not on file Plan of Treatment Not on file Procedures Procedure Name Priority Date/Time Associated Diagnosis Comments HEPATITIS C RNA QUANTITATIVE 08/06/2020 1:23 PM CDT from Last 3 Months or Most Recently Relevant to Health Maintenance Results * HEPATITIS C RNA QUANTITATIVE (08/06/2020 1:23 PM CDT) Hepatitis C Virus RNA, Quantitative Real Time PCR <15 NOT DETECTED NOT DETECTED IU/mL [facility] Hepatitis C Virus RNA, Quantitative Real Time PCR <1.18 NOT DETECTED NOT DETECTED Log IU/mL [facility] Comment: This test was performed using Real-Time Polymerase Chain Reaction. Reportable Range: 15 IU/mL to 100,000,000 IU/mL (1.18 Log IU/mL to 8.00 Log IU/mL). The analytical performance characteristics of this assay have been determined by [employer]. The modifications have not been cleared or approved by the FDA. This assay has been validated pursuant to the CLIA regulations and is used for clinical purposes. For more information on this test, go to: http://education.CareinSync.Rewardix/faq/IOR23f7 (This link is being provided for informational/ educational purposes only.) Test Performed at: [email or web address] [employer] [address] 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
--- OUTSIDE RECORDS SUMMARY | 2024-04-26 09:24 | XMS_ITS | Referral Summary ---
Author Organization [facility] Address [address] [place] [address] Care Team Providers Care Hospital Administrative Assistant Name Role Phone Louie Gee MD Unavailable Rusty Ramsey MD Primary Care Provider Allergies Active Allergy Reactions Criticality Noted Date Comments Lisinopril Cough Low 11/09/2023 Medications aspirin 81 mg enteric coated tabletIndicatio ns:cardiovascul ar disease Take 1 tablet (81 mg total) by mouth daily 30 tablet 10/04/2023 5 Active clopidogreL (PLAVIX) 75 mg tabletIndicatio ns:myocardial infarction prevention,card iovascular disease Take 1 tablet (75 mg total) by mouth daily 30 tablet 10/04/2023 5 Active metoprolol tartrate (LOPRESSOR) 25 mg immediate release tabletIndicatio ns:cardiovascul ar disease Take 1 tablet (25 mg total) by mouth 2 (two) times a day 60 tablet 10/03/2023 5 Active rosuvastatin (CRESTOR) 40 mg tabletIndicatio ns:myocardial infarction prevention Take 1 tablet (40 mg total) by mouth nightly 30 tablet 10/03/2023 5 Active amLODIPine (NORVASC) 10 mg tablet Take 1 tablet (10 mg total) by mouth daily Active Active Problems Problem Noted Date Diagnosed Date Mixed hyperlipidemia 11/09/2023 Impaired glucose tolerance 10/03/2023 Coronary artery disease invo lving belkofski coronary artery of belkofski heart 10/02/2023 Hypertension, essential 10/02/2023 Tobacco dependence 10/02/2023 Obstructive sleep apnea 10/02/2023 NSTEMI (non-ST elevated myocardial infarction) ( [facility]) 10/01/2023 Left main coronary artery dissection 10/01/2023 Social History Tobacco Use Types Packs/Day Years Used Date Smoking Tobacco: Former Cigarettes 03 28 Smokeless Tobacco: Never Tobacco Cessation:Counseling Given: Not Answered Personal Safety Answer Date Recorded Have you ever been in or are you currently in a harmful physical or emotional relationship or is someone making you feel afraid or unsafe? Denies 10/01/2023 Sex and Gender Information Value Date Recorded Sex Assigned at Not on file Legal Sex Male 4:27 PM CDT Gender Identity Male 10/01/2023 6:26 PM CDT Sexual Orientation Not on file Last Filed Vital Signs Vital Sign Reading Time Taken Comments Blood Pressure 124/74 11/09/2023 3:28 PM CDT Pulse 58 11/09/2023 3:28 PM CDT Temperature 36.8 C (98.2 F) 10/03/2023 8:30 AM CDT Respiratory Rate 20 10/03/2023 8:30 AM CDT Oxygen Saturation 96% 11/09/2023 3:28 PM CDT Inhaled Oxygen Concentration - - Weight 99.3 kg (219 lb) 11/09/2023 3:28 PM CDT Height 182.9 cm (6') 11/09/2023 3:28 PM CDT Body Mass Index 29.7 11/09/2023 3:28 PM CDT Plan of Treatment Not on file Medical Devices Implanted Type Area Salesperson New Cars Device Identifier Shelf Expiration Date Model / Serial / Lot [employer] A[employer]y Stent Drug Eluting S Megatron Us Mr [id number] - S0 - [id number] Implanted:Qty : 1 on 10/01/2023 by Louie Gee MD at [facility] Stent N/A: Coronary [employer] Kayy 01/03/2025 [id number] / 0 / [id number] [employer] Kayy Stent Drug Eluting S Megatron Us Mr [id number] - S0 - [id number] Implanted:Qty : 1 on 10/01/2023 by Louie Gee MD at [facility] Stent N/A: Coronary [employer] Kayy 01/17/2025 [id number] / 0 / [id number] [employer] V[employer] System Closure Repair Femoral Artery Suture Mediated Perclose Prostyle 16840-98 - S0 - [id number] Implanted:Qty : 1 on 10/01/2023 by Louie Gee MD at [facility] Vascular Closure Device Right: Femoral [employer] 06/28/2025 [id number] / 0 / [id number] Insurance [facility] [employer] Advance Directives For more information, please contact: [phone] * Full Code (Latest Code Status on File) Date Activated Date Inactivated Comments 10/01/2023 6:37 PM 10/03/2023 3:50 PM Care Teams Hospital Administrative Assistant Relationship Specialty Start Date End Date Rusty Ramsey MD [address] [facility] [place] [address] [place] [address] PCP - General Family Medicine 11/09/23 Louie Gee MD [address] [facility] [place] [address] Consulting Physician Cardiology 10/03/23
--- OUTSIDE RECORDS SUMMARY | 2024-04-26 09:24 | XMS_ITS | Encounter Summary ---
Author Organization [facility] Address [address] [place] [address] Care Team Providers Care Institute Scientist Name Role Phone Unavailable Primary Care Provider Unavailabl e Encounter Details Date Type Department Care Team (Late st Contact Info) Description 04/26/2024 Transcribe Orders [facility] Pre Access Team [address] [place] [address] Mateusz King MD [address] [place] [address] Social History Tobacco Use Types Packs/Day Years Used Date Smoking Tobacco: Never Assessed Sex and Gender Information Value Date Recorded Sex Assigned at Not on file 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
--- OUTSIDE RECORDS SUMMARY | 2024-04-26 09:24 | XMS_ITS | Clinical Summary ---
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 Gender Identity Not on file Sexual Orientation Not on file Plan of Treatment Health Maintenance Due Date Last Done Comments Colorectal Cancer Screening Colonoscopy (10 Years) 1961 Annual Physical 1964 Hepatitis C 08/14/1979 DTaP, Tdap and Td Vaccines ( 1 - Tdap) 1980 Zoster Vaccines (1 of 2) 08/14/2011 COVID-19 Vaccine (2023-2 5 season) 2023 Influenza Adult (#1) 2023 RSV Immunization or 60+ Years (1 - 1-dose 75+ series) 2036 Meningococcal B Vaccine Aged Out No l onger eligible based on patient's age to complete this topic Meningococcal Vaccine Aged Out No filemon miguel eligible based on patient's age to complete this topic Pneumococcal Vaccine: Pediat rics (0 to 5 Years) and At-Risk Patients (6 to 64 Years) Aged Out No longer eligible b ased on patient's age to complete this topic RSV Immunizations Under 20 Months Aged Out No longer eligible based on patient's age to complete this topic
--- OUTSIDE RECORDS SUMMARY | 2024-04-26 09:24 | XMS_ITS | Continuity of Care Document ---
Author Name [facility] Organization [facility] Care Team Providers Care Stagecraft Professor Name Role Phone [facility] Unavailable Unavailable Allergies, Adverse Reactions, Alerts Combined list of allergies from Department of Defense and Veterans Affairs facilities. It does not include entries that were removed or entered in error. Substance Category Reaction Severity Reaction type Status Date Reported Comments Source No Known Allergies Drug allergy (disorder) active 0 [facility] Procedures Combined list of: 1) Procedures from Department of Veterans Affairs facilities going back up to thelast 18 months, not all [place] non-surgical procedures are included; 2) All procedures from the Department of Defense facilities. Procedure Procedure Type Code Date Perfomer Comments Sour e TYMPANOMETRY (IMPEDANCE TESTING) 01/04/2001 [facility] POLYSOMNOGRAPHY; AGE 6 YEARS OR OLDER, SLEEP STAGING WITH 4 OR MORE ADDITIONAL PARAMETERS OF SLEEP, ATTENDED BY A TECHNOLOGIST 10/07/2000 [facility] POLYSOMNOGRAPHY; AGE 6 YEARS OR OLDER, SLEEP STAGING WITH 4 OR MORE ADDITIONAL PARAMETERS OF SLEEP, ATTENDED BY A TECHNOLOGIST 10/06/2000 [facility] NASOPHARYNGOSCOPY WITH ENDOSCOPE (SEPARATE PROCEDURE) 08/23/2000 [facility] POLYSOMNOGRAPHY; AGE 6 YEARS OR OLDER, SLEEP STAGING WITH 4 OR MORE ADDITIONAL PARAMETERS OF SLEEP, ATTENDED BY A TECHNOLOGIST 05/28/2000 [facility] Social History Combined list of available smoking, tobacco, and other social history from Department of Defense and Veterans Affairs facilities. Social History Type Response Date Comment Sourc e This section is an empty social history section. [facility]
--- OUTSIDE RECORDS SUMMARY | 2024-04-26 09:24 | XMS_ITS | Patient Health Summary ---
Author Organization [facility] Address [address] [place] [address] Care Team Providers Care Roadway Designer Name Role Phone Rosalino Saleem Primary Care Provider [phone] Note from [facility],non-owned Affiliates and Associated Physician Practices is amultiple site organization consisting of ambulatory clinics and hospital sitesin [place], [place], [place] and [place]. This disclosure is being madepursuant to the Care Everywhere program and may not contain all information available regarding this patient. Last updated 17.[facility] [employer] Allergies No known active allergies Social History Tobacco Use Types Packs/Day Years Used Date Smoking Tobacco: Never Assessed Sex and Gender Information Value Date Recorded Sex Assigned at Not on file Gender Identity Not on file Sexual Orientation Not on file Procedures * HEPATITIS C RNA QUANTITATIVE(Performed 08/06/2020) * PT-INR(Performed 08/06/2020) * CBC W AUTO DIFFERENTIAL(Performed 08/06/2020) * COMPREHENSIVE METABOLIC PANEL(Performed 08/06/2020) * LIVER FIBROSIS PANEL(Performed 02/03/2020) Performed for Hepatitis C virus infection without hepatic coma, unspecified chronicity, Elevated LFTs * HEPATITIS C GENOTYPE(Performed 02/03/2020) Performed for Hepatitis C virus infection without hepatic coma, unspecified chronicity, Elevated LFTs Results * HEPATITIS C RNA QUANTITATIVE (08/06/2020 [...] of this assay have been determined by [employer]. The modifications have not been cleared or approved by the FDA. This assay has been validated pursuant to the CLIA regulations and is used for clinical purposes. For more information on this test, go to: http://Sticher.Intent/faq/YKP83a7 (This link is being provided for informational/ educational purposes only.) Test Performed at: [facility] [id number] [place] [address] [address] JARQUIN DO,MPH 08/06/2020 1:23 PM CDT 08/06/2020 1:25 PM CDT Juarez Lepe APRN-GONZALO LAB - HAND THERMAL CUTTER RY ORDERABLES Performing Organization Address [facility] de Phone Number [facility] [address] [place] [address] * PT-INR (08/06/2020 1:23 PM CDT) INR 1.0 [facility] Comment: Reference Range 0.9-1.1 Moderate-intensity Warfarin Therapy 2.0-3.0 Higher-intensity Warfarin Therapy 3.0-4.0 PT 10.3 9.0 - 11.5 sec [facility] Comment: For additional information, please refer to http://Sticher.Intent/faq/MUA654 (This link is being provided for informational/ educational purposes only.) Test Performed at: [facility] [id number] [place] [address] [address] JARQUIN DO,MPH 08/06/2020 1:23 PM CDT 08/06/2020 1:25 PM CDT Juarez RODRIGUEZ LAB - COAGULA TION ORDERABLES Performing Organization Address [facility] Co de Phone Number [facility] [address] [place] [address] * (ABNORMAL) CBC WITH DIFFERENTIAL (08/06/2020 1:23 PM CDT) White Blood Cell Count 7.5 3.8 - 10.8 Thousand/u L [facility] RBC 3.98(L) 4.20 - 5.80 Million/uL [facility] Hemoglobin 13.3 13.2 - 17.1 g/dL [facility] Hematocrit 39.2 38.5 - 50.0 % [facility] MCV 98.5 80.0 - 100.0 fL [facility] MCH 33.4(H) 27.0 - 33.0 pg [facility] MCHC 33.9 32.0 - 36.0 g/dL [facility] RDW 12.9 11.0 - 15.0 % [facility] Platelet Count 221 140 - 400 Thousand/u L [facility] MPV 11.1 7.5 - 12.5 fL [facility] Neutrophil Absolute 4005 1500 - 7800 cells/uL [facility] Lymphocytes Absolute 2580 850 - 3900 cells/uL [facility] Absolute Monocytes 600 200 - 950 cells/uL [facility] Eosinophils Absolute 278 15 - 500 cells/uL [facility] Basophils Absolute 38 0 - 200 cells/uL [facility] Granulocytes % 53.4 % [facility] Lymphocytes % 34.4 % [facility] Monocytes % 8.0 % [facility] Eosinophils % 3.7 % [facility] Basophils % 0.5 % [facility] Comment: Test Performed at: [facility] [id number] [place] [address] [address] JARQUIN DO,MPH 08/06/2020 1:23 PM CDT 08/06/2020 1:25 PM CDT Juarez Lepe ARTILLERY OFFICER-BRIMMER BLOCKER LAB - HEMATOL OGY ORDERABLES [facility] [address] [place] [address] * COMPREHENSIVE METABOLIC PANEL (08/06/2020 1:23 PM CDT) Pathologist [facility] Glucose 90 65 - 99 mg/dL [facility] Comment: Fasting reference interval BUN 19 7 - 25 mg/dL [facility] Creatinine 0.86 0.70 - 1.33 mg/dL [facility] Comment: For patients >49 years of age, the reference limit for Creatinine is approximately 13% higher for people identified as -Egyptian. eGFR by MDRD 96 > OR = 60 mL/min/1 .73m2 [facility] eGFR by MDRD 111 > OR = 60 mL/min/1 .73m2 [facility] BUN/Creatinine Ratio NOT APPLICABLE 6 - 22 (calc) [facility] Sodium 139 135 - 146 mmol/L [facility] Potassium 4.0 3.5 - 5.3 mmol/L [facility] Chloride 106 98 - 110 mmol/L [facility] CO2 26 20 - 32 mmol/L [facility] Calcium 9.3 8.6 - 10.3 mg/dL [facility] Protein Total 6.6 6.1 - 8.1 g/dL [facility] Albumin 4.1 3.6 - 5.1 g/dL [facility] Globulin Total 2.5 1.9 - 3.7 g/dL (calc) [facility] Albumin/Globulin Ratio 1.6 1.0 - 2.5 (calc) [facility] Bilirubin Total 0.4 0.2 - 1.2 mg/dL [facility] Alkaline Phosphatase 71 35 - 144 U/L [facility] AST 25 10 - 35 U/L [facility] ALT 15 9 - 46 U/L [facility] Comment: Test Performed at: [facility] [id number] [place] [address] [address] JARQUIN DO,MPH 08/06/2020 1:23 PM CDT 08/06/2020 1:25 PM CDT Juarez Lepe ARTILLERY OFFICER-BRIMMER BLOCKER LAB - HAND THERMAL CUTTER RY ORDERABLES Performing Organization Address City/State/[facility] Co de Phone Number [facility] [address] [place] [address] * (ABNORMAL) LIVER FIBROSIS PANEL (02/03/2020 12:09 PM ASSEMBLER ARRANGER) Fibrosis Score 0.75 [facility] Fibrosis Stage F4 [facility] Interpretation Fibrosis SEE NOTE [facility] Comment: severe fibrosis Fibro Test Score (f) Metavir Score f>=0 and f<=0.21 : F0 (no fibrosis) f>0.21 and f<=0.27 : F0-F1 (no fibrosis) f>0.27 and f<=0.31 : F1 (minimal fibrosis) f>0.31 and f<=0.48 : F1-F2 (minimal fibrosis) f>0.48 and f<=0.58 : F2 (moderate fibrosis) f>0.58 and f<=0.72 : F3 (advanced fibrosis) f>0.72 and f<=0.74 : F3-F4 (advanced fibrosis) f>0.74 and f<=1.00 : F4 (severe fibrosis) Necroinflammat Activity Score 0.58 [facility] Necroinflammat Activity Grade A2 [facility] Interpretation Necroinflammat SEE NOTE [facility] Comment: significant activity ActiTest Score (a) Metavir Score a>=0 and a<=0.17 : A0 (no activity) a>0.17 and a<=0.29 : A0-A1 (no activity) a>0.29 and a<=0.36 : A1 (minimal activity) a>0.36 and a<=0.52 : A1-A2 (minimal activity) a>0.52 and a<=0.60 : A2 (significant activity) a>0.60 and a<=0.62 : A2-A3 (significant activity) a>0.62 and a<=1.00 : A3 (severe activity) Ouzgj-3-Sknlrlgkoid ins Quantitative 299(H) 106 - 279 mg/dL [facility] Haptoglobin 10(L) 43 - 212 mg/dL [facility] Apolipoprotein A-1 127 94 - 176 mg/dL [facility] Bilirubin Total 0.4 0.2 - 1.2 mg/dL [facility] GGT 18 3 - 85 U/L [facility] ALT 68(H) 9 - 46 U/L [facility] Reference ID [id number] [facility] Footnote SEE NOTE [facility] Comment: The reliability of results is dependent on compliance with the preanalytical and analytical conditions recommended by [employer]. The tests have to be deferred for: acute hemolysis, acute hepatitis, acute inflammation, extra hepatic cholestasis. The advice of a specialist should be sought for interpretation in chronic hemolysis and Gilbert's syndrome. The test interpretation is not validated in liver transplant patients. Isolated extreme values of one of the components should lead to caution in interpreting the results. In case of discordance between a biopsy result and a test, it is recommended to seek the advice of a specialist. The causes of these discordances could be due to a flaw of the test or to a flaw in the biopsy: i.e. a liver biopsy has a 33% variability rate for one fibrosis stage. FibroTest is interpretable for chronic hepatitis B and C, alcoholic and non alcoholic steatosis. ActiTest is interpretable for chronic hepatitis B and C. The performance characteristics have been determined by [facility]. It has not been cleared or approved by the U.S. Food and Drug Administration. Performance characteristics refer to the analytical performance of the test. [employer], [employer], the associated logo, [employer] and all associated [employer] way are the registered trademarks of [employer]. All third green party way - (R) and (TM) - are the property of their respective owners. (C) 6823-5315 [employer]. All rights reserved. Test Performed at: [facility] [facility] [address] [place] [address] MARY ABURTO MD,PHD,MALDONADO Blood BLOOD SPECIMEN / Unknown 02/03/2020 12:09 PM ASSEMBLER ARRANGER 02/03/2020 12:11 PM ASSEMBLER ARRANGER Juarez Lepe APRN-GONZALO LAB - HAND THERMAL CUTTER RY ORDERABLES Performing Organization Address [facility] Co de Phone Number [facility] [address] [place] [address] * HEPATITIS C GENOTYPE (02/03/2020 12:09 PM ASSEMBLER ARRANGER) Hepatitis C Virus Genotype LIPA 3 [facility] Comment: The method used in this test is RT-PCR and reverse hybridization (Line Probe) of the 5' UTR and core region of the HCV genome. The analytical performance characteristics of this assay have been determined by [facility]. The modifications have not been cleared or approved by the FDA. This assay has been validated pursuant to the CLIA regulations and is used for clinical purposes. For additional information, please refer to http://education.PredPol /faq/HCVGenotyping (This link id being provided for informational/ educational purposes only.) Test Performed at: [facility] [address] [place] [address] Skylar CASEY Blood BLOOD SPECIMEN / Unknown 02/03/2020 12:09 PM ASSEMBLER ARRANGER 02/03/2020 12:11 PM ASSEMBLER ARRANGER Juarez Lpee APRN-BRIMMER BLOCKER LAB - HAND THERMAL CUTTER RY ORDERABLES Performing Organization Address [facility] Co de Phone Number [facility] [address] [place] [address] Care Teams Roadway Designer Relationship Specialty Start Date End Date Rosalino Saleem DO [address] [address] PCP - General Family Medicine 01/08/20
--- OUTSIDE RECORDS SUMMARY | 2024-04-26 09:24 | XMS_ITS | Clinical Summary ---
Author Organization [facility] Address [address] [address] Care Team Providers Care Director Of Primary Care Name Role Phone CameronRosalino oates Primary Care Provider [phone] Source Comments [facility],non-owned Affiliates and Associated Physician Practices is amultiple site organization consisting of ambulatory clinics and hospital sitesin [place], [place], [place] and [place]. This disclosure is being madepursuant to the Care Everywhere program and may not contain all information available regarding this patient. Last updated 17.[facility] Allergies No known active allergies Social History Tobacco Use Types Packs/Day Years Used Date Smoking Tobacco: Never Assessed Sex and Gender Information Value Date Recorded Sex Assigned at Not on file Gender Identity Not on file Sexual Orientation Not on file Plan of Treatment Health Maintenance Due Date Last Done Comments COLOGUARD (AGES 45-75) - COLON CA SCREENING 1961 COLON MONITORING 1961 COLONOSCOPY - COLON CA SCREENING 1961 CT COLONOGRAPHY - COLON CA SCREENING 1961 Colorectal Cancer Screening 1961 FIT - COLON CA SCREENING 1961 FLEX SIG - COLON CA SCREENING 1961 LIPID TESTING 1961 HIV SCREENING 1976 DTAP/TDAP/TD VACCINES (1 - Tdap) 1980 PNEUMOCOCCAL VACCINE 50+ (1 of 1 - PCV) 08/14/2011 ZOSTER VACCINE (1 of 2) 08/14/2011 COVID-19 VACCINE (1 - 2023-25 season) 2023 INFLUENZA VACCINE (#1) 2023 DEPRESSION SCREENING 03/01/2024 Respiratory Syncytial Virus (RSV) Vaccine Pt: or over 60 yrs (1 - 1-dose 75+ series) 2036 HEPATITIS C SCREENING Completed 08/06/2020 , 06/11/2020, 02/21/2020, Additional history exists HEPATITIS B VACCINE Aged Out No longe r eligible based on patient's age to complete this topic HIB VACCINE Aged Out No longer eligi ble based on patient's age to complete this topic HPV VACCINE Aged Out No longer eligi ble based on patient's age to complete this topic MENINGOCOCCAL (Group B) VACCINE Aged Out No longer eligible based on patient's age to complete this topic MENINGOCOCCAL VACCINE Aged Out No filemon miguel eligible based on patient's age to complete this topic PNEUMOCOCCAL VACCINE Aged Out No long er eligible based on patient's age to complete this topic Procedures Procedure Name Priority Date/Time Associated Diagnosis Comments HEPATITIS C RNA QUANTITATIVE 08/06/2020 1:23 PM CDT from Last 3 Months or Most Recently Relevant to Health Maintenance Results * HEPATITIS C RNA QUANTITATIVE (08/06/2020 1:23 PM CDT) [facility] Hepatitis C Virus RNA, Quantitative Real Time PCR <15 NOT DETECTED NOT DETECTED IU/mL [facility] Hepatitis C Virus RNA, Quantitative Real Time PCR <1.18 NOT DETECTED NOT DETECTED Log IU/mL [facility] Comment: This test was performed using Real-Time Polymerase Chain Reaction. Reportable Range: 15 IU/mL to 100,000,000 IU/mL (1.18 Log IU/mL to 8.00 Log IU/mL). The analytical performance characteristics of this assay have been determined by [employer] The modifications have not been cleared or approved by the FDA. This assay has been validated pursuant to the CLIA regulations and is used for clinical purposes. For more information on this test, go to: http://education.Termii webtech limited.Marine Life Research/faq/WNW22y9 (This link is being provided for informational/ educational purposes only.) Test Performed at: [facility] [address] [place] [address] [address] JARQUIN DO,MPH 08/06/2020 1:23 PM CDT 08/06/2020 1:25 PM CDT Juarez Lepe MANUFACTURING ELECTRICIAN-NEGATIVE DEVELOPER LAB - ENDLESS BED DRUM SANDER RY ORDERABLES [facility] [address] [place] [address] from Last 3 Months or Most Recently Relevant to Health Maintenance Care Teams Director Of Primary Care Relationship Specialty Start Date End Date Rosalino Saleem DO [address] [place] [address] PCP - General Family Medicine 01/08/20
--- OUTSIDE RECORDS SUMMARY | 2024-04-26 09:24 | XMS_ITS | Clinical Summary ---
Author Organization [facility] Address [address] [place] [address] Care Team Providers Care Pharmacy Technician Name Role Phone Louie Gee MD Unavailable [...] tolerance 10/03/2023 Coronary artery disease invo lving [place] coronary artery of [place] heart 10/02/2023 Hypertension, essential 10/02/2023 Tobacco dependence 10/02/2023 Obstructive sleep apnea 10/02/2023 NSTEMI (non-ST elevated myocardial infarction) ( CMS/HCC) 10/01/2023 Left main coronary artery dissection 10/01/2023 Medical History Medical History Date Comments Hypertension YANI on CPAP Social History Tobacco Use Types Packs/Day Years Used Date Smoking Tobacco: Former Cigarettes 1 28 Smokeless Tobacco: Never Tobacco Cessation:Counseling Given: [...] PM CDT Sexual Orientation Not on file Obstetrics History Last Filed Vital Signs Vital Sign Reading [...] 11/09/2023 3:28 PM CDT Plan of Treatment Health Maintenance Due Date Last Done Comments Colon Cancer Screening-Colonoscopy 1961 Depression Screening 1961 Hepatitis C Screening 1961 Prostate Cancer Screening-PSA 1961 DTaP/Tdap/Td Vaccine (1 - Tdap) 1972 Hepatitis B Screening 08/14/1979 Regular Well Visit/Exam 18-64 08/14/1979 Influenza Vaccine (#1) 2023 12/13/2019 Zoster Vaccine Completed 04/01/2020, 01/03/2020 Pneumococcal vaccine <65 Aged Out No longer eligible based on patient's age to complete this topic Medical Devices Implanted Type Area Electric Range Assembler Device Identifier Shelf Expiration Date Model / Serial / Lot [employer] Kayy Stent Drug Eluting S Megatron Us Mr [id number] - S0 - [id number] Implanted:Qty : 1 on 10/01/2023 by Louie Gee MD at [facility] Stent N/A: Coronary [employer] Kayy 01/03/2025 [id number] / 0 / [id number] [employer] Kayy Stent Drug Eluting S Megatron Us Mr [id number] - S0 - [id number] Implanted:Qty : 1 on 10/01/2023 by Louie Gee MD at [facility] Stent N/A: Coronary [employer] Kayy 01/17/2025 [id number] / 0 / [id number] Cartwright Vascular System Closure Repair Femoral Artery Suture Mediated Perclose Prostyle 12361-19 - S0 - [id number] Implanted:Qty : 1 on 10/01/2023 by Louie Gee MD at [facility] Vascular Closure Device Right: Femoral [employer] 06/28/2025 [id number] / 0 / [id number] Insurance [facility] FEDERAL Advance Directives For more information, please contact: [phone] * Full Code (Latest Code Status on File) Date Activated Date Inactivated Comments 10/01/2023 6:37 PM 10/03/2023 3:50 PM Care Teams Pharmacy Technician Relationship Specialty Start Date End Date Rusty Ramsey MD [address] [facility] [address] [place] [address] PCP - General Family Medicine 11/09/23 Louie Gee MD [address] [facility] [address] [place] [address] Consulting Physician Cardiology 10/03/23
--- OUTSIDE RECORDS SUMMARY | 2024-04-26 09:24 | XMS_ITS | Clinical Summary ---
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 [employer] Gender Identity Not on file Sexual Orientation Not on file Plan of Treatment Health Maintenance Due Date Last Done Comments Pre-Diabetes and Diabetes Screening 1961 DTAP/TDAP/TD VACCINES (1 - Tdap) 1980 COLORECTAL SCREENING 2006 Colorectal Cancer Screening 2006 FIT-DNA Q 3 years 2006 FIT/FOBT Q 1 year 2006 Flex Sig/CT Colonography Q 5 years 2006 ZOSTER VACCINE (1 of 2) 08/14/2011 RSV VACCINE (60+ or ) (1 - Risk 60-74 years 1-dose series) 2021 INFLUENZA VACCINE (#1) 2023 PNEUMOCOCCAL VACCINE 0-64 YEARS Aged Out No longer eligible based on patient's age to complete this topic Insurance [facility] FEDERAL
== END 2024-04-26 08:51 | disposition home or self-care (01) ==
LOC: CHSCARD 08:52
PROVIDERS: PCP Family Medicine; Visit Provider Family Medicine
DX: R13.10 Dysphagia, unspecified (principal); R05.3 Chronic cough; R94.2 Abnormal results of pulmonary function studies
CPT/HCPCS: 94060; 94726; 94729

== ENCOUNTER 2024-05-05 17:11 | Outpatient (CLI) | payer BC, SELFPAY ==
--- NOTE | ~2024-05-05 | XR_ITS ---
CHEST RADIOGRAPH, PA AND LATERAL CLINICAL HISTORY: cough/sob x2 months . COMPARISON: 10/01/2023 TECHNIQUE: PA and lateral views of the chest. FINDINGS Interval development of elevation of the right hemidiaphragm with adjacent compressive atelectasis. Retained oral contrast is identified within multiple loops of small and large bowel. No significant peribronchial thickening. The lungs are otherwise clear. The cardiomediastinal silhouette is unremarkable. IMPRESSION: Last imaging performed 6 months earlier. Significant elevation of the right hemidiaphragm when compared with last examination for which CT exa mination of the abdomen and pelvis is recommended unless the source of the elevation is a known findi ng. The lungs are otherwise clear. Reviewed, dictated and finalized at location A. [facility] IMPRESSION: Last imaging performed 6 months earlier. Significant elevation of the right hemidiaphragm when compared with last examin ation for which CT examination of the abdomen and pelvis is recommended unless the source of the elevation is a known finding. The lungs are otherwise clear.
--- OUTSIDE RECORDS SUMMARY | 2024-05-05 17:15 | XMS_ITS | Clinical Summary ---
Author Organization [facility] Address [address] [place] [address] Care Team Providers Care Cane Pusher Name Role Phone CameronRosalino oates Primary Care Provider [phone] Source Comments [facility],non-owned Affiliates and Associated Physician Practices is amultiple site organization consisting of ambulatory clinics and hospital sitesin [place], [place], [place] and [place]. This disclosure is being madepursuant to the Care Everywhere program and may not contain all information available regarding this patient. Last updated 17.[facility] Allergies No known active allergies Social History [...] C RNA QUANTITATIVE (08/06/2020 1:23 PM CDT) [facility] Hepatitis C Virus RNA, Quantitative Real Time PCR <15 NOT DETECTED NOT DETECTED IU/mL [facility] Hepatitis C Virus RNA, Quantitative Real Time PCR <1.18 NOT DETECTED NOT DETECTED Log IU/mL [facility] Comment: This test was performed using Real-Time Polymerase Chain Reaction. Reportable Range: 15 IU/mL to 100,000,000 IU/mL (1.18 Log IU/mL to 8.00 Log IU/mL). The analytical performance characteristics of this assay have been determined by [facility] [employer]. The modifications have not been cleared or approved by the FDA. This assay has been validated pursuant to the CLIA regulations and is used for clinical purposes. For more information on this test, go to: http://education.Ecovative Design.Appsindep/faq/MNZ88i1 (This link is being provided for informational/ educational purposes only.) Test Performed at: [facility] [address] [place] [address] [address] JARQUIN DO,MPH 08/06/2020 1:23 PM CDT 08/06/2020 1:25 PM CDT Juarez Lepe GLUE SPECIALTY SUPERVISOR-PROFESSIONAL WRESTLER LAB - PROTECTIVE OFFICER RY ORDERABLES [facility] [address] [place] [address] from Last 3 Months or Most Recently Relevant to Health Maintenance Care Teams Cane Pusher Relationship Specialty Start Date End Date Rosalino Saleem DO [address] [facility] [address] [place] [address] PCP - General Family Medicine 01/08/20
--- OUTSIDE RECORDS SUMMARY | 2024-05-05 17:15 | XMS_ITS | Patient Health Summary ---
Author Organization [facility] Address [address] [place] [address] Care Team Providers Care Director Global Name Role Phone Rosalino Saleem Primary Care Provider Note from [facility],non-owned Affiliates and Associated Physician Practices is amultiple site organization consisting of ambulatory clinics and hospital sitesin [place], [place], [place] and [place]. This disclosure is being madepursuant to the Care Everywhere program and may not contain all information available regarding this patient. Last updated 17.[facility] [employer] Allergies No known active allergies Social History [...] of this assay have been determined by [facility]. The modifications have not been cleared or approved by the FDA. This assay has been validated pursuant to the CLIA regulations and is used for clinical purposes. For more information on this test, go to: http://Incentivyze.Open Garden/faq/IFK60s3 (This link is being provided for informational/ educational purposes only.) Test Performed at: [facility] [address] [place] [address] [address] JARQUIN DO,MPH 08/06/2020 1:23 PM CDT 08/06/2020 1:25 PM CDT Juarez Lepe APRN-[facility] LAB - BLEACH BOILER FILLER RY ORDERABLES Performing Organization Address [facility] de Phone Number [facility] [address] [place] [address] * PT-INR (08/06/2020 1:23 PM CDT) INR 1.0 [facility] Comment: Reference Range 0.9-1.1 Moderate-intensity Warfarin Therapy 2.0-3.0 Higher-intensity Warfarin Therapy 3.0-4.0 PT 10.3 9.0 - 11.5 sec [facility] Comment: For additional information, please refer to http://Incentivyze.Open Garden/faq/DSS260 (This link is being provided for informational/ educational purposes only.) Test Performed at: [facility] [address] [place] [address] [address] JARQUIN DO,MPH 08/06/2020 1:23 PM CDT 08/06/2020 1:25 PM CDT Juarez RODRIGUEZ LAB - COAGULA TION ORDERABLES Performing Organization Address [facility] Co de Phone Number [facility] [address] [place] [address] * (ABNORMAL) CBC WITH DIFFERENTIAL (08/06/2020 1:23 [...] 0.5 % [facility] Comment: Test Performed at: [facility] [address] [place] [address] [address] JARQUIN DO,MPH 08/06/2020 1:23 PM CDT 08/06/2020 1:25 PM CDT Juarez Lepe DRILL FOREMAN-AUDIOVISUAL LIBRARIAN LAB - HEMATOL OGY ORDERABLES [facility] [address] [place] [address] * COMPREHENSIVE METABOLIC PANEL (08/06/2020 1:23 PM CDT) Pathologist [facility] Glucose 90 65 - 99 mg/dL [facility] Comment: Fasting reference interval BUN 19 7 - 25 mg/dL [facility] Creatinine 0.86 0.70 - 1.33 mg/dL [facility] Comment: For patients >49 years of age, the reference limit for Creatinine is approximately 13% higher for people identified as -Tuvaluan. eGFR by MDRD 96 > OR = [...] 46 U/L [facility] Comment: Test Performed at: [facility] [address] [place] [address] [address] JARQUIN DO,MPH 08/06/2020 1:23 PM CDT 08/06/2020 1:25 PM CDT Juarez Lepe DRILL FOREMAN-AUDIOVISUAL LIBRARIAN LAB - BLEACH BOILER FILLER RY ORDERABLES Performing Organization Address City/State/[facility] Co de Phone Number [facility] [address] [place] [address] * (ABNORMAL) LIVER FIBROSIS PANEL (02/03/2020 12:09 PM CORN SHUCKER) Fibrosis Score 0.75 [facility] Fibrosis Stage F4 [...] a>0.62 and a<=1.00 : A3 (severe activity) Pwcpp-8-Dcchaztklar ins Quantitative 299(H) 106 - 279 mg/dL [facility] Haptoglobin 10(L) 43 - 212 mg/dL [facility] Apolipoprotein A-1 127 94 - 176 mg/dL [facility] Bilirubin Total 0.4 0.2 - 1.2 mg/dL [facility] GGT 18 3 - 85 U/L [facility] ALT 68(H) 9 - 46 U/L [facility] Reference ID [id number] [facility] Footnote SEE NOTE [facility] Comment: The reliability of results is dependent on compliance with the preanalytical and analytical conditions recommended by Cover. The tests have to be deferred for: [...] The performance characteristics have been determined by [facility]. It has not been cleared or approved by the U.S. Food and Drug Administration. Performance characteristics refer to the analytical performance of the test. [employer], [facility], the associated logo, [employer] and all associated [employer] way are the registered trademarks of [facility]. All third alliance party way - (R) and (TM) - are the property of their respective owners. (C) [id number] [facility] [employer]. All rights reserved. Test Performed at: [facility] [address] [place] [address] MARY ABURTO MD,PHD,MALDONADO Blood BLOOD SPECIMEN / Unknown 02/03/2020 12:09 PM CORN SHUCKER 02/03/2020 12:11 PM CORN SHUCKER Juarez Lepe APRN-G[facility]O LAB - BLEACH BOILER FILLER RY ORDERABLES Performing Organization Address [facility] Co de Phone Number [facility] [address] [place] [address] * HEPATITIS C GENOTYPE (02/03/2020 12:09 PM CORN SHUCKER) Hepatitis C Virus Genotype LIPA 3 [facility] Comment: The method used in this test is RT-PCR and reverse hybridization (Line Probe) of the 5' UTR and core region of the HCV genome. The analytical performance characteristics of this assay have been determined by [facility]. The modifications have not been cleared or approved by the FDA. This assay has been validated pursuant to the CLIA regulations and is used for clinical purposes. For additional information, please refer to http://education.Battlefy /faq/HCVGenotyping (This link id being provided for informational/ educational purposes only.) Test Performed at: [facility] [address] [place] [address] Skylar CASEY Blood BLOOD SPECIMEN / Unknown 02/03/2020 12:09 PM CORN SHUCKER 02/03/2020 12:11 PM CORN SHUCKER Juarez Lepe APRN-AUDIOVISUAL LIBRARIAN LAB - BLEACH BOILER FILLER RY ORDERABLES Performing Organization Address [facility] Co de Phone Number [facility] [address] [place] [address] Care Teams Director Global Relationship Specialty Start Date End Date Rosalino Saleem DO [address] [address] PCP - General Family Medicine 01/08/20
--- OUTSIDE RECORDS SUMMARY | 2024-05-05 17:15 | XMS_ITS | Continuity of Care Document ---
Author Name [facility] Organization [facility] Care Team Providers Care Semiconductor Technician Name Role Phone [facility] Unavailable Unavailable Allergies, Adverse Reactions, Alerts Combined list of allergies from Department of Defense and Veterans Affairs facilities. It does not include entries that were removed or entered in error. Substance Category Reaction Severity Reaction type Status Date Reported Comments Source No Known Allergies Drug allergy (disorder) active 0 [facility] Procedures Combined list of: 1) Procedures from Department of Veterans Affairs facilities going back up to thelast 18 months, not all [place] non-surgical procedures are included; 2) All procedures from the Department of Defense facilities. Procedure Procedure Type Code Date Perfomer Comments Sour e TYMPANOMETRY (IMPEDANCE TESTING) 01/04/2001 [facility] POLYSOMNOGRAPHY; AGE 6 YEARS OR OLDER, SLEEP STAGING WITH 4 OR MORE ADDITIONAL PARAMETERS OF SLEEP, ATTENDED BY A TECHNOLOGIST 10/07/2000 [facility] POLYSOMNOGRAPHY; AGE 6 YEARS OR OLDER, SLEEP STAGING WITH 4 OR MORE ADDITIONAL PARAMETERS OF SLEEP, ATTENDED BY A TECHNOLOGIST 10/06/2000 [facility] NASOPHARYNGOSCOPY WITH ENDOSCOPE (SEPARATE PROCEDURE) 08/23/2000 [facility] POLYSOMNOGRAPHY; AGE 6 YEARS OR OLDER, SLEEP STAGING WITH 4 OR MORE ADDITIONAL PARAMETERS OF SLEEP, ATTENDED BY A TECHNOLOGIST 05/28/2000 [facility] Social History Combined list of available smoking, tobacco, and other social history from Department of Defense and Veterans Affairs facilities. Social History Type Response Date Comment Sourc e This section is an empty social history section. [facility]
--- OUTSIDE RECORDS SUMMARY | 2024-05-05 17:15 | XMS_ITS | Referral Summary ---
Author Organization [facility] Address [address] [place] [id number] Care Team Providers Care Ham Rolling Machine Operator Name Role Phone Rosalino Saleem DO Primary Care Provider [phone] Source Comments [facility],non-owned Affiliates and Associated Physician Practices is amultiple site organization consisting of ambulatory clinics and hospital sitesin [place], [place], [place] and [place]. This disclosure is being madepursuant to the Care Everywhere program and may not contain all information available regarding this patient. Last updated 17.[facility] [employer] Allergies No known active allergies Social History [...] of this assay have been determined by [employer]. The modifications have not been cleared or approved by the FDA. This assay has been validated pursuant to the CLIA regulations and is used for clinical purposes. For more information on this test, go to: http://education.[employer].Sassor/faq/KOZ16i2 (This link is being provided for informational/ educational purposes only.) Test Performed at: [facility] [address] [facility] [place] [address] [address] JARQUIN DO,MPH 08/06/2020 1:23 PM CDT 08/06/2020 1:25 PM CDT Juarez Lepe RN RECOVERY-ALARM MECHANIC LAB - CLIENT SUPPORT ASSOCIATE RY ORDERABLES [facility] [address] [place] [address] from Last 3 Months or Most Recently Relevant to Health Maintenance Care Teams Ham Rolling Machine Operator Relationship Specialty Start Date End Date Rosalino Saleem DO [address] [facility] [address] [place] [address] PCP - General Family Medicine 01/08/20
--- OUTSIDE RECORDS SUMMARY | 2024-05-05 17:15 | XMS_ITS | Clinical Summary ---
Author Organization [facility] Address [address] [place] [address] Care Team Providers Care Clinical Unit Educator Name Role Phone Uzma Haynes MD Primary Care Provider [phone] Encounters Date Type Department Care Team Description 05/02/2024 1:43 PM VEST BUSHELER - 05/02/2024 11:59 PM VEST BUSHELER Hospital Encounter [facility] [address] [place] [address] Uzma Haynes MD Arrived Discharge Disposition: Home or Self Care (Routine Discharge) 04/26/2024 Transcribe Orders [facility] Pre Access Team [address] [place] [address] Uzma Haynes MD from Last 3 Months Social History Tobacco Use Types Packs/Day Years Used Date Smoking Tobacco: Never Assessed Sex and Gender Information Value Date Recorded Sex Assigned at Not on file Legal Sex Male 7:20 AM VEST BUSHELER Gender Identity Not on file Sexual Orientation Not on file Plan of Treatment Health Maintenance Due Date Last Done Comments Colorectal Cancer Screening Colonoscopy (10 Years) 1961 Annual Physical 1964 DTaP, Tdap and Td Vaccines ( 1 - Tdap) 1980 COVID-19 Vaccine (2023-2 5 season) 2023 12/15/2021, 02/05/2021, 05/09/2020 Influenza Adult (#1) 2023 12/13/2019 RSV Immunization or 60+ Years (1 - 1-dose 75+ series) 2036 Zoster Vaccines Completed 04/01/2020, 01/03/2020 Hepatitis C Completed 08/06/2020 Meningococcal B Vaccine Aged Out No l onger eligible based on patient's age to complete this topic Meningococcal Vaccine Aged Out No filemon miguel eligible based on patient's age to complete this topic Pneumococcal Vaccine: Pediatrics (0 to 5 Years) and At-Risk Patients (6 to 64 Years) Aged Out No longer eligible b ased on patient's age to complete this topic RSV Immunizations Under 20 Months Aged Out No longer eligible b ased on patient's age to complete this topic Procedures Procedure Name Priority Date/Time Associated Diagnosis Comments XR ESOPHAGRAM/BARIUM SWALLOW Routine 05/02/2024 2:19 PM VEST BUSHELER Dysphagia, unspecified from Last 3 Months Results * XR ESOPHAGRAM/BARIUM SWALLOW (05/02/2024 2:19 PM VEST BUSHELER) Anatomical Region Laterality Modality Chest, Abdomen Radiographic Hina ging, Radiographic Imaging 05/02/2024 3:10 PM VEST BUSHELER Impressions 05/02/2024 3:12 PM VEST BUSHELER IMPRESSION: 1. No evidence of stricture, dilatation, or mass of the esophagus. No hiatal hernia is identified. 2. Deep penetration of thin barium solution observed. In combination with the patient's description of symptoms, speech pathology evaluation and swallow study may be of benefit. 3. Number of images: 8. Fluoroscopic time: 59 seconds. Ordered By: UZMA HAYNES Interpreted By: Hai Trinidad, 05/02/2024 3:10 PM Narrative 05/02/2024 3:12 PM VEST BUSHELER [address] [address] EXAMINATION: DUAL PHASE ESOPHAGRAM EXAM DATE: 05/02/2024 1:43 PM CLINICAL HISTORY: Dysphagia, feeling that food is stuck in throat. COMPARISON: None TECHNIQUE: Gas crystals were administered orally. Thick barium solution was then administered and imaging of the chest and upper abdomen was obtained in multiple projections. Patient was then placed flat in LPO position. Thin barium solution was administered and additional imaging was obtained of the chest and upper abdomen. FINDINGS: No evidence of stricture, dilatation, or mass of the esophagus. Gastroesophageal junction within normal limits. Peristalsis within normal limits. No evidence of reflux. Limited evaluation of the cervical esophagus with thin barium solution demonstrates deep penetration. Administration of barium pill demonstrated no abnormality. Procedure Note Vivi, Hai Panfilo, MD - 05/02/2024 [facility] [address] [place] [address] EXAMINATION: DUAL PHASE ESOPHAGRAM EXAM DATE: 05/02/2024 1:43 PM CLINICAL HISTORY: Dysphagia, feeling that food is stuck in throat. COMPARISON: None TECHNIQUE: Gas crystals were administered orally. Thick barium solutionwas then administered and imaging of the chest and upper abdomen wasobtained in multiple projections. Patient was then placed flat in LPOposition. Thin barium solution was administered and additional imaging wasobtained of the chest and upper abdomen. FINDINGS: No evidence of stricture, dilatation, or mass of the esophagus. Gastroesophageal junction within normal limits. Peristalsis within normal limits. No evidence of reflux. Limited evaluation of the cervical esophagus with thin barium solutiondemonstrates deep penetration. Administration of barium pill demonstrated no abnormality. IMPRESSION: 1. No evidence of stricture, dilatation, or mass of the esophagus. Nohiatal hernia is identified. 2. Deep penetration of thin barium solution observed. In combination withthe patient's description of symptoms, speech pathology evaluation andswallow study may be of benefit. 3. Number of images: 8. Fluoroscopic time: 59 seconds. Ordered By: UZMA HAYNES Interpreted By: Hai Trinidad, 05/02/2024 3:10 PM Uzma Haynes MD FLUOROSCOPY Final Result from Last 3 Months Insurance [facility] Care Teams Clinical Unit Educator Relationship Specialty Start Date End Date Uzma Haynes MD [address] [place] [address] PCP - General FAMILY PRACTICE 05/02/24
--- OUTSIDE RECORDS SUMMARY | 2024-05-05 17:15 | XMS_ITS | Clinical Summary ---
Author Organization [facility] Address [address] [place] [address] Care Team Providers Care Health Technician Hearing Name Role Phone Louie Gee MD Unavailable [...] tolerance 10/03/2023 Coronary artery disease invo lving cahto coronary artery of cahto heart 10/02/2023 Hypertension, essential 10/02/2023 Tobacco dependence 10/02/2023 Obstructive sleep apnea 10/02/2023 NSTEMI (non-ST elevated myocardial infarction) 0 10/01/2023 Left main coronary artery dissection 10/01/2023 [...] this topic Medical Devices Implanted Type Area Physician Coder Device Identifier Shelf Expiration Date Model / Serial / Lot Dex[employer] Kayy Stent Drug Eluting S Megatron Us Mr [id number] - S0 - [id number] Implanted:Qty : 1 on 10/01/2023 by Louie Gee MD at [facility] Stent N/A: Coronary [employer] Kayy 01/03/2025 [id number] / 0 / [id number] Dex[employer] Kayy Stent Drug Eluting S Megatron Us Mr [id number] - S0 - [id number] Implanted:Qty : 1 on 10/01/2023 by Louie Gee MD at [facility] Stent N/A: Coronary [employer] Kayy 01/17/2025 [id number] / 0 / [id number] [employer] V[employer] System Closure Repair Femoral Artery Suture Mediated Perclose Prostyle [id number] - S0 - [id number] Implanted:Qty : 1 on 10/01/2023 by Louie Gee MD at [facility] Vascular Closure Device Right: Femoral [employer] 06/28/2025 [id number] / 0 / [id number] Insurance [facility] FEDERAL Advance Directives For more information, please contact: [phone] * Full Code (Latest Code Status on File) Date Activated Date Inactivated Comments 10/01/2023 6:37 PM 10/03/2023 3:50 PM Care Teams Health Technician Hearing Relationship Specialty Start Date End Date Rusty Ramsey MD [address] [facility] [address] [place] [address] PCP - General Family Medicine 11/09/23 Louie Gee MD [address] [facility] [address] [place] [address] Consulting Physician Cardiology 10/03/23
--- OUTSIDE RECORDS SUMMARY | 2024-05-05 17:15 | XMS_ITS | Clinical Summary ---
Author Organization [facility] Address [address] [place] [address] Care Team Providers Care Shovel Engineer Name Role Phone Unavailable Primary Care Provider [...] on file Legal Sex Male 4:30 AM RETURNING OFFICER Gender Identity Not on file Sexual Orientation [...] 1-dose series) 2021 INFLUENZA VACCINE (#1) 2023 Insurance [employer] FEDERAL [address] [employer] [place] [id number]
--- OUTSIDE RECORDS SUMMARY | 2024-05-05 17:15 | XMS_ITS | Encounter Summary ---
Author Organization [facility] Address [address] [place] [address] Care Team Providers Care Pool Installer Name Role Phone Mateusz King MD Primary Care Provider [phone] Encounter Details Date Type Department Care Team (Late st Contact Info) Description 04/26/2024 Transcribe Orders [facility] Pre Access Team [address] [place] [address] Mateusz King MD [address] [place] [address] Social History Tobacco Use Types Packs/Day Years Used Date Smoking Tobacco: Never Assessed Sex and Gender Information Value Date Recorded Sex Assigned at Not on file Legal Sex Male 7:20 AM SENIOR SCHEDULER Gender Identity Not on file Sexual Orientation Not on file documented as of this encounter Plan of Treatment Not on file documented as of this encounter Visit Diagnoses Not on filedocumented in this encounter Care Teams Pool Installer Relationship Specialty Start Date End Date Mateusz King MD [address] [place], [place] [address] PCP - General FAMILY PRACTICE 05/02/24 documented as of this encounter
--- OUTSIDE RECORDS SUMMARY | 2024-05-05 17:15 | XMS_ITS | Continuity of Care Document ---
Author Organization [facility] Address [address] [place] [address] Phone Care Team Providers Care Coroner Forensic Technician Name Role Phone Rusty Ramsey MD Unavailable Unavailable Allergies, Adverse Reactions, Alerts Substance Reaction Status Criticality No Known Allergies Active No Inform ation Medications Medication Instructions Dosage Effective Dates (start - stop) Status Comments AMLODIPINE BESYLATE 10 MG TAB TAKE 1 TABLET BY MOUTH EVERY DAY - Active rosuvastatin 40 mg tablet take 1 tablet by oral route every day 40 MG - Active metoprolol succinate ER 25 mg tablet,extended release 24 hr take 1 tablet by oral route every day 25 MG - Active TRAZODONE 50 MG TABLET TAKE 1 TABLET BY MOUTH AT BEDTIME - Active aspirin 81 mg chewable tablet chew 1 tablet by oral route every day 81 MG - Active clopidogrel 75 mg tablet take 1 tablet by oral route every day 75 MG - Active amlodipine 10 mg tablet TAKE 1 TABLET BY MOUTH EVERY DAY - No Longer Active Procedures Procedure Date OFFICE [id number] BODY MASS INDEX DOCD SYST BP LT 130 MM HG DIAST BP < 80 MM HG FALL RISK ASSESSMENT DOC'D PRES/ABSN URINE INCON ASSESS PREVENTATIVE-NEW: 40-64 Aug-29-2024 BODY MASS INDEX DOCD SYST BP LT 130 MM HG DIAST BP 80-89 MM HG CBC, INC PLATELETS AND DIFFERENTIAL COMPREHEN METABOLIC PANEL [facility] 4 ROUTINE VENIPUNCTURE OFFICE [id number] BODY MASS INDEX DOCD SYST BP GE 130 - 139MM HG DIAST BP 80-89 MM HG COMPREHEN METABOLIC PANEL CMP 3 ROUTINE VENIPUNCTURE OFFICE [id number] BODY MASS INDEX DOCD SYST BP GE 130 - 139MM HG DIAST BP < 80 MM HG OFFICE [id number] BODY MASS INDEX DOCD SYST BP >= 140 MM HG6 IT DIAST BP < 80 MM HG Pt inelig neg scrn depres CBC, INC PLATELETS, NO DIFFERENTIAL COMPREHEN METABOLIC PANEL [facility] 3 HEMOGLOBIN A1C HGA1C, GLYCO LIPID PANEL PSA, TOTAL THYROID STIMULATION HORMONE(TSH) 2022 VITAMIN B12 (SERUM) ROUTINE VENIPUNCTURE OFFICE [id number] BODY MASS INDEX [facility] >= 140 MM HG6 IT DIAST BP >= 90 MM HG OFFICE [id number] BODY MASS INDEX DOCD SYST BP >= 140 MM HG6 IT DIAST BP >= 90 MM HG OFFICE [id number] BODY MASS INDEX DOCD SYST BP >= 140 MM HG6 IT DIAST BP 80-89 MM HG BASIC METABOLIC PANEL(BMP) ROUTINE VENIPUNCTURE Pt inelig neg scrn depres GENERAL HEALTH PANEL HEMOGLOBIN A1C HGA1C, GLYCO LIPID PANEL PSA, TOTAL ROUTINE VENIPUNCTURE URINALYSIS, DIPSTICK (UA) - Office Lab A OFFICE [id number]-[id number]-WAUI BODY MASS INDEX DOCD SYST BP >= 140 MM HG6 IT DIAST BP >= 90 MM HG IMMUN ADMIN (INC PERCUTANEOUS) SINGLE, F IRST INJ Zoster Vaccine (HZV) (SHINGRIX), Intramu scular ACUTE HEPATITIS PANEL ANTINUCLEAR ANTIBODIES (ALEYDA) GENERAL HEALTH PANEL FERRITIN LEVEL GAMMA GT, GGT (LF) HEMOGLOBIN A1C HGA1C, GLYCO IRON (FE), TOTAL TIBC, & % SATURATION LIPID PANEL PSA, TOTAL PROTHROMBIN TIME W/INR (PROTIME,PT) RBC SED RATE, AUTOMATED ROUTINE VENIPUNCTURE PREVENTATIVE-EST: 40-64 BODY MASS INDEX DOCD SYST BP GE 130 - 139MM HG DIAST BP 80-89 MM HG URINALYSIS, DIPSTICK (UA) - Office Lab N Advance Directives Directive Yes / No Effective Date File Name No Information Encounters Encounter Description Practice Location Reason(s) For Visit Diagnoses Date Provider Providers Copied on Encounter [facility], [address], [place], [place], [address] , [place] tel:[phone] [facility] No Information [address] [place] [address], [address], [place], [place], [address], [place]. [phone] OFFICE IECSK-MGT-LM PANDED [facility], [address], [place], [place], [address] , tel: [phone] [facility] acute problem (chief complaint) Body mass index [BMI] 29.0-29.9, adultShortness of breath [address] [place] [address], [address], [place], [place], [address], . tel:[phone] Referring Provider: Rusty Ramsey, [address] [place] [address], [place], [address] . tel:[phone] [facility], [address], [place], [place], [address] , [place] tel: [phone] [facility] Shortness of breath 4 Roxy Richard [address] [place] [address], Suite [facility], [place], [place], [address], . tel:[phone] [facility], [address], [place], [place], [address] , tel: [phone] [facility] No Information 4 Roxy Richard [address] [place] [address], [place] [address], [place], [place], [address], [place]. tel:[phone] PREVENTATIVE -NEW: 40-64 [facility], [address], [place], [place], [address] , tel: [phone] [facility] preventive exam (chief complaint)C hronic Conditions (chief complaint) Encounter for general adult medical examination without abnormal findingsAtherosc lerotic heart disease of [place] coronary artery without angina pectorisEssentia l (primary) hypertensionToba accounts payable administrator usePersonal history of other infectious and parasitic diseasesBody mass index [BMI] 29.0-29.9, adult 4 [address] Richard [address] [place] [address], [place] [address], [place], [place], [address], [place]. tel:[phone] Referring Provider: Rusty Ramsey [address] [place] [address], [place], [address] . tel:[phone] OFFICE ANUGS-BPB-SR [facility], [address], [place], [place], [address] , tel:[phone] [place] Chronic condition. (chief complaint) Body mass index [BMI] 29.0-29.9, [id number] deficiencyOSA (obstructive sleep apnea)Primary hypertensionErec tile dysfunction, unspecified erectile dysfunction typeHyperlipidem ia, unspecified hyperlipidemia typeTobacco useBrachial neuritis 3 Harper Jerry. [address] [place] [address], [address], [place], [place], [address], [place]. tel:[phone] Referring Provider: Rosalino Saleem, [address] [place] [address], [place], [address] . tel:[phone] OFFICE NMKDR-PNR-VK [facility], [address], [place], [place], [address] , [phone] [place] R shoulder pain. (chief complaint) Body mass index [BMI] 28.0-28.9, adultRight shoulder pain, unspecified chronicity 3 Harper Jerry. [address] [place] [address], Suite [facility], [place], [place], [address], [place]. tel:[phone] Referring Provider: Rosalino Saleem, [address] [place] [address], [place], [address] . tel:[phone] OFFICE EUOLJ-XBB-UR [facility], [address], [place], [place], [address] , [phone] [place] follow up bp and sleep study. (chief complaint) Body mass index [BMI] 27.0-27.9, adultPrimary hypertensionOSA (obstructive sleep apnea)B12 deficiencyPain of right shoulder regionErectile dysfunction, unspecified erectile dysfunction type 3 Hai Brannon. [address] [place] [address], [address], [place], [place], [address], [place]. tel:[phone] Referring Provider: Rosalino Saleem, [address] [place] [address] Suite [facility], [place], [address] . tel:[phone] OFFICE URSXD-KTF-TH TAILED [facility], [address], [place], [place], [address] , tel:[phone] [place] Body mass index [BMI] 28.0-28.9, adultPrimary hypertensionOSA (obstructive sleep apnea)Tobacco useMemory changesDizziness Hyperlipidemia, unspecified hyperlipidemia typeB12 deficiencyScreen ing PSA (prostate specific antigen) 3 Hai Brannon. [address] [place] [address], [place] [address], [place], [place], [address], . tel:[phone] Referring Provider: Rosalino Saleem, [address] [place] [address], [place], [address] . tel:[phone] OFFICE JQKXZ-ZTD-VH [facility], [address], [place], [place], [address] , tel:[phone] [place] BP follow up (chief complaint) Body mass index [BMI] 26.0-26.9, adultPrimary hypertensionHx of sleep apneaSeasonal allergic rhinitis, unspecified trigger Aug-0 2 Hai Brannon. [address] [place] [address], [place] [address], [place], [place], [address], . tel:[phone] Referring Provider: Rosalino Saleem, [address] [place] [address], [place], [address] . tel:[phone] [facility], [address], [place], [place], [address] , tel:[phone] [place] No Information 2 Harper Jerry. [address] [place] [address], [place] [address], [place], [place], [address], . tel:[phone] OFFICE YYKVC-WTV-CP TAILED [facility], [address], [place], [place], [address] , tel:[phone] [place] blood pressure follow up (chief complaint) Body mass index [BMI] 25.0-25.9, adultFatigue, unspecified typeHx of sleep apneaPrimary hypertensionToba accounts payable administrator useHyperlipidemi a, unspecified hyperlipidemia type 2 Hai Brannon. [facility], [facility] [address], [place], [place], [address], [place]. tel:[phone] Referring Provider: Rosalino Saleem, [address] [place] [address], [place], [address] . tel:[phone] OFFICE XUDEV-ZPS-CO MP [facility], [address], [place], [place], [address] , tel:[phone] [place] fatigue, back pain, ED, (chief complaint) Body mass index [BMI] 25.0-25.9, adultHepatitis C virus infection without hepatic coma, unspecified chronicityPrimar y hypertensionHx of sleep apneaEncounter for screening for malignant neoplasm of prostateFatigue, unspecified typeErectile dysfunction, unspecified erectile dysfunction typeBilateral low back pain without sciatica, unspecified chronicityTobacc o use 2 Hai Brannon. [facility], [place] [address], [place], [place], [address], [place]. tel:[phone] Referring Provider: Rosalino Saleem, [facility] [place] [address], [place], [address] . tel:[phone] PREVENTATIVE -EST: 40-64 [facility], [address], [place], [place], [address] , [place] tel:[phone] [place] PE (chief complaint) Body mass index (BMI) 24.0-24.9, adultAnnual physical examElevated liver enzymesLateral epicondylitis of right elbowCyst of testisEncounter for screening for malignant neoplasm of prostateEncounte r for screening colonoscopyEncou nter for herpes zoster vaccination 0 Harper Jerry. [facility], [place] [address], [place], [place], [address], [place]. tel:[phone] Referring Provider: Rosalino Saleem, [facility] [place] [address], [place], [address] . tel:[phone] [facility], [address], [place], [place], [address] , [place] tel:[phone] [place] left leg numbness around knee area (chief complaint) Body mass index (BMI) 28.0-28.9, adultMeralgia paresthetica of left sideScreening for prostate cancerElevated liver enzymesHyperchol esterolemiaScree nelia for diabetes mellitus 9 Gomez Banks. [address], [place], [place], [address]. tel:[phone] Referring Provider: Rosalino Saleem, [address] [place] [address] [address], [place], [address] . tel:[phone] [facility], [address], [place], [place], [address] , tel: [phone] [place] Body mass index (BMI) 28.0-28.9, adultHerpes zoster without complication 7 [facility]. [address] [place] [address], [facility], [place], [place], [address], . tel:[phone] Referring Provider: Rosalino Saleem, [address] [place] [address] [address], [place], [address] . tel:[phone] [facility], [address], [place], [place], [address] , tel:[phone] [place] Annual physical examElevated LFTsSlow urinary streamSpermatoce le of epididymis, unspecifiedOther hydroceleTobacco use 6 [facility]. [address], [facility], [place], [place], [address], . tel:[phone] Referring Provider: Rosalino Saleem, [facility] [address], [place], [address] . tel:[phone] [facility], [address], [place], [place], [address] , tel:[phone] [place] Mass of scrotumEncounter for screening for malignant neoplasm of prostateEncounte r for screening for diabetes mellitusEncounte r for screening for endocrine disorderScreenin g examination for venereal disease 6 Harper Jerry. [address], [address], [place], [place], [address], [place]. tel:[phone] Referring Provider: Rosalino Saleem, [address], [place], [address] . tel:[phone] [facility], [address], [place], [place], [address] , [place] tel: [phone] [place] Slowing of urinary streamRoutine general medical examination at a health care facilityAbdomina l pain, unspecified siteTobacco abuseScreening for endocrine, nutritional, metabolic anScreening for lipoid disordersRoutine general medical examination at a health care facility 2 Jr Dunlapily. [address], [place], [place], [address], [place]. tel:[phone] Referring Provider: Rosalino Saleem, [address] [facility] [address], [place], [address] . tel:[phone] Family History Family Member Type Diagnosis Age At Onset No Information Immunizations Vaccine Date Status Comments SHINGRIX (Zoster vaccine recombinant, adjuvanted) administered Source: Other R egistry SHINGRIX (Zoster vaccine recombinant, adjuvanted) administered Source: New Imm unization Record Fluzone Quad, preservative free, split virus, 0.5mL dosage administered Source: Other Regist ry Payers Payer name Insurance type Covered democrat ID Authoriza tion(s) [facility] ACCESS [id number] [facility] ACCESS [id number] Social History Type Description Quantity Date Captured Comments Sex Male Smoking Status No Information Sexual Orientation Choose not to disclose Gender Identity Male Chief Complaint And Reason For Visit No Information Reason For Referral Reason For Referral No Information Plan Of Treatment Date Type Action Status Goal Dietary manageme nt education, guidance, and counseling completed Goal Dietary manageme nt education, guidance, and counseling completed Goal Dietary manageme nt education, guidance, and counseling completed Goal Dietary manageme nt education, guidance, and counseling completed Goal Dietary manageme nt education, guidance, and counseling completed Goal Dietary manageme nt education, guidance, and counseling completed Goal Dietary manageme nt education, guidance, and counseling completed Goal Dietary manageme nt education, guidance, and counseling completed Goal Dietary manageme nt education, guidance, and counseling completed Goal Tobacco cessation counseling completed Goal Dietary manageme nt education, guidance, and counseling completed Referral Ordered: Chest Xray, 2 Views Bilateral chest ordered Referral Referred To: [address], [place], [id number] Ordered: COLONOSCOPY, Flexible, Proximal To Splenic, Diagnostic, Wor W/O Collection Of Sp ordered Referral Referred To: [id number] [facility]
[address] [place], [id number] Ordered: Split night polysomnography ordered Referral Ordered: Ultrasound, scrotum ordered Referral Ordered: CT abdomen and pelvis w contrast ordered Future Order: Radiology Order Ul trasound, scrotum ([id number]), Sent on: Sent History Of Present Illness Encounter Date Complaint History Of Prese nt Illness acute problem One week ago, gloria morrison developed flu like symptoms of fevers and myalgias. After several days, though symptoms improved but he then developed shortness of breath with exertion. He denies any coughing. He tested himself for Covid three times at home, all of which were negative. He does feel like his shortness of breath is beginning to improve today. preventive exam Men's preventive visit. The patient has no weight gain/loss. Marital status: . Relevant history is positive for tobacco use. Relevant history is negative for alcohol use. Chronic Conditions *See Chronic Conditions HPI Chronic condition. Pt today is Shyla Araya a 61 y/o male presenting for a BP follow up.HTN: Pt's BP in office is controlled. Pt is currently prescribed Losartan-HCTZ 100-12.5mg once a day. Pt reports this medicine makes him cough so bad he can't even work. He says he took it a few times but he has to stop taking it because it makes him cough so bad. He says when he was on the medicine his BP got down to around 145. Pt also got a cough when he took Lisinopril-HCTZ. Pt denies CP, SOB, edema, lightheadedness. Pt is working on low-sodium diet.Tobacco use: Pt notes that he smokes about a pack a week.Memory changes: No recent updates.Sleep apnea: Pt is compliant with CPAP. pt reported taking trazodone sparingly (once every 3 months).HLD: Pt is not on medication. He reported that he has been treated for hepatitis C, and it resolved his abnormal labs.Vitamin B12: Pt is taking B12 supplements.Brachial neuritis: R shoulder; managed by Dr. Jaime Burleson. the pt reported doing a nerve conduction study and an MRI R shoulder. 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 Pt mentioned that its getting better slowly. He was given anti inflammatories, but has only taken one (He didn't like how they made him feel). R shoulder pain. 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 Pt tried to do exercised Given to him by Salud RUBY and they made his pain worse. Pt was doing physical work above his head one day, when he started to get pain around his back and neck. He had a problem with the shoulder when he was younger and they told him it was bursitis. He originally helped it by throwing a football one day when he was younger, that caused it to subside until now. He mentioned that its a lot weaker than before. it does not wake him up at night. No other recent injuries or illnesses. follow up bp and sleep study. Pt today is Dmitri Araya a 61 y/o male presenting for a BP follow up.HTN: Pt's BP in office is elevated. Pt notes at home his BP is still elevated around the 160s/70s-80s. Pt is currently taking amlodipine 5mg once daily. Pt reports this medicine has not given him any side effects. Pt denies CP, SOB, edema, lightheadedness.right shoulder pain: Pt notes his back near his right shoulder was hurting for about a week but then went away. He says while the pain went away he has limited mobility on his right arm due to his shoulder feeling tight. He also reports that pushing with pressure is difficult on his right arm.sleep apnea: Pt had repeat sleep study done earlier this month. He says he is going back to the sleep doctor next week. He does not have a CPAP yet.vitamin B12: Pt is not taking any supplements.ED: Pt notes he is having trouble lately maintaining an erection and is wondering if he could get medicine to assist with this. chornic conditions. Pt today is Dimtri Araya a 61 y/o male presenting for a BP follow up.HTN: Pt's BP in office is elevated. Pt is currently prescribed Losartan-HCTZ 100-12.5mg once a day. Pt reports this medicine makes him cough so bad he can't even work. He says he took it a few times but he has to stop taking it because it makes him cough so bad. He has not taken it in over 1 week. He says when he was on the medicine his BP got down to around 145. Pt also got a cough when he took Lisinopril-HCTZ. Pt denies CP, SOB, edema, lightheadedness. Pt is working on low-sodium diet but it makes it hard to do the Keto diet he says. tobacco use: Pt notes that he smokes about a pack a week.dizziness: Pt reports for 2 weeks when he lays down or sits up he feels very dizzy and like things are spinning. He says it went away 5 days ago and has not come back so he is not sure what was causing it.memory changes: Pt says for the past 4-7 years he has noticed his memory is getting worse. He says recently he has started to forget names of people who he has known for a long time or he cannot come up with a word that he is trying to use.sleep apnea: Pt notes he was diagnosed in the and he has a CPAP but it is outdated so he only uses it sometimes. He says he needs a new CPAP but he is not sure how to get it. He thinks his original sleep study is with his documents. He is worried about the cost of getting a new sleep study done. Pt notes he rarely has to use the trazodone for sleep. He says he only uses it when he gets off of his normal sleep regimen. Pt reports he needs a doctors note for work so that he can not be scheduled for overnight shifts since this really affects his sleep.HLD: Pt is not on medication. he says his diet has been changing in the past few years so he is not sure how his labs will be.vitamin B12: Pt is not taking any supplements.RHM: Pt notes he was supposed to schedule a colonoscopy and never did. BP follow up Pt today is Kiel as Sparrowk a 61 y/o male presenting for a BP follow up.HTN: Pt's BP in office today is 152/90 and on recheck. Pt is currently prescribed Lisinopril-HCTZ 20-12.5mg once a day. Pt reports he ran out of his medication a few days ago and his pharmacy did not get the new script. Pt notes that his BP readings at home have been low 150s to high 140s over 80s. Pt also says he gets a cough when he takes his Lisinopril-HCTZ. Pt has been working on doing a low-sodium diet.Hx of sleep apnea: Pt reports he has no problems sleeping anymore. All he notes is having some night sweats during allergy season in the spring. Pt did not end up getting sleep study that we recommended. Pt is no longer taking Trazadone 50mg at bedtime.Seasonal allergic rhinitis: Pt reports that he gets scratchy, itchy throat with a lot of sinus congestion during allergy season. blood pressure follow up HTN: Pt is med compliant with Lisinopril. Pt reports no CP, SOB, or edema. Pt reports having elevated BP readings at home.Fatigue/Hx of sleep apnea: Pt is med compliant with Trazodone which he feels helps but has kind of worn off. Pt had hx of sleep apnea - resolved with weight loss. Had sleep study 18 years ago in . He has a CPAP and wears occasionally. Pt states that he hasn't gotten sleep study yet due to pollen around house that messes with sleep anyway .Tobacco use: Pt continues to smoke.HLD: As per previous labs. Pt reports no complaints. Pt states that with moving around recently he has had an unsteady diet which he feel could contribute.BMI of 25.6: We reviewed current diet and exercise levels. fatigue, back pain, ED, Pt with multiple complaints and concerns. Sleep - reports last 2 years always tried, grumpy. Hx of sleep apnea - resolved with weight loss. Had sleep study 18 years ago in . He has a CPAP and wears occasionally. Sleeps 6 hours and tried and trouble staying awake at work. He has tried melatonin. Sleeping 6 hours / night but does not feel rested. HTN - has ran high in past. He watches sodium in diet, yesterday had extra salt in food. No swelling in ankles, CP or SOB. Wt gain 8 lbsBack issue - low back pain upon awakening, sometimes bilateral, now just the right side. Has been remodeling house. x 1 month, resolves after 10 minutes after getting out of bed. Pain improving. No radiating pain or numbness or tingling. No OTC.Sexual dysfunction - no trouble getting things started, difficulty completing sexual intercourse. No issues in interest.HCV - went through Dr. Zazueta's office. Per pt he completed 1 month of pills and was hold he had good response. Rare ETOH. He believes he has had all hepatitis vaccinations through the .Decreased stream - for years, stable. No nocturia. Does not feel medication is needed. PE Physical: Pt is overall well today.Elevated liver enzymes: Per labs, no issues stated.cyst of testis: Per US in 12/2015, no issues or more growth reported. Medial epicondylitis: Pt reports he was trying to uproot a stump from the ground and states he felt warmth and a pop to the right medial epicondyle of his elbow joint. He states he had intermittent pain and decreased ROM for x4 weeks since it occurred. RHM: Pt given shingles vaccine in office today. Due for colonoscopy. left leg numbness ar ound knee area (comments) Numb area, left legInvolving lateral distal thigh - Began 1.5 years ago- occasional at first, gradually more frequent- now nightly in past couple months. Usually present when he first wakes up - then dissipates after he's been up and moving around after ~15 minutes.Sometimes able to minimize the symptoms if he sleeps in certain positions. No associated leg weakness or pain. No low back pain. Feels well otherwise.Wears no heavy belt or pants tight around the waist. Hypercholesterolemia - direct LDL 145 in 05/2011 - no other lipid values are available - no abdominal pain, nausea or vomiting. Elevated liver enzymes - mildly elevated ALT and AST in 05/2011 and 12/2015. left leg numbness ar ound knee area Functional Status Date Functional Assessmen t No Information Instructions Date Instruction Additional Infor mation If you chest x-ray s hows pneumonia, I will let you know and send you in a prescription for antibiotics. If not, I expect her symptoms will continue to improve over the next five days. If they stop improving, please let me know. Related to Shortness of breath Dietary management e ducation, guidance, and counseling Related to Body mass index (BMI) 29.0-29.9, adult I will recheck your Hepatitis C levels today. Related to Personal history of other infectious and parasitic diseases Morning I will send a home stool sample kit to your house.You are up-to-date on your vaccinations.Please call the office in six months to schedule your follow-up appointment. Related to Encounter for general adult medical examination without abnormal findings Please continue to d ecrease your cigarette use. Related to Tobacco use Please continue to t jonathan your aspirin, Plavix, and rosuvastatin to help prevent any further heart attack. 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 We are checking bloodwork today. You should receive a letter or call within one week discussing your result. If you do not, please contact the office to get your results. Related to Essential (primary) hypertension R-sided. Followed by Dr Alex. Burleson. Continue PT. 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 Diet-controlled. Encouraged low-cholesterol diet and exercise. Will monitor. Related to Hyperlipidemia, unspecified hyperlipidemia type Severe per sleep veronica dy 07/06/22. Pt compliant with CPAP. Pt takes Trazodone PRN. Notify for any issues. Will monitor. Related to YANI (obstructive sleep apnea) Symptomatic. Continu e Cialis 10mg as needed. Notify for any issues. Will monitor. Related to Erectile dysfunction, unspecified erectile dysfunction type Recommended starting B12 complex vitamin.RHM: reminded pt to schedule colonoscopy. I gave the pt Dr. Stark's card.F/u in 6 months or sooner, Charting performed by Wilmer Knott acting as scribe for Carlota Phan. DO Harper I reviewed the chart and agree with and approve of the documentation. Related to B12 deficiency BP controlled today. Continue amlodipine to 10mg once daily. Recommended pt check his BP at home and record readings- notify office for elevated readings. Encouraged low sodium diet <2000 mg/day. Discussed that starting CPAP to treat sleep apnea could help his BP normalize as well. Will continue to monitor. Related to Primary hypertension Dietary management e ducation, guidance, and counseling Related to Body mass index (BMI) 29.0-29.9, adult Will refer pt to Dr Jaime Armenta, [place]. Will consider injections after consultation.f/u in 6 months or sooner, Charting performed by Wilmer Knott acting as scribe for Carlota Phan. DO Harper I reviewed the chart and agree with and approve of the documentation. Related to Right shoulder pain, unspecified chronicity Dietary management e ducation, guidance, and counseling Related to Body mass index (BMI) 28.0-28.9, adult Symptomatic. START: Cialis 10mg as needed. Notify for any issues. Will monitor.RHM: reminded pt to schedule colonoscopy.f/u in one month for BP check Charting performed by Mario Okeefe, acting as scribe for Yoselin Valles.DONALD Shelton: I reviewed the chart and agree with and approve of the documentation. Related to Erectile dysfunction, unspecified erectile dysfunction type May-30-2023 Recommended starting B12 complex vitamin. Related to B12 deficiency Symptomatic with kaley e limited range of motion and tightness. Recommended physical therapy- will send order today. Discussed if he cannot go in person he can look up Grey and Elijah videos on the internet. Notify for any worsening symptoms. Will monitor. Related to Pain of right shoulder region BP of 160/76, 146/86 initially and 146/86 on recheck today. INCREASE: amlodipine to 10mg once daily. Recommended pt check his BP at home and record readings- notify office for elevated readings. Encouraged low sodium diet <2000 mg/day. Discussed that starting CPAP to treat sleep apnea could help his BP normalize as well. Will continue to monitor. Related to Primary hypertension Severe per sleep veronica dy 07/06/22. Follow up with sleep specialists as scheduled to obtain CPAP. Notify for any issues. Will monitor. Related to YANI (obstructive sleep apnea) Dietary management e ducation, guidance, and counseling Related to Body mass index (BMI) 27.0-27.9, adult Per previous labs. Diet-controlled. Encouraged low-cholesterol diet and exercise. Will monitor.Labs: LP Related to Hyperlipidemia, unspecified hyperlipidemia type Per previous labs. W ill monitor.labs: B12 levelRHM: due for colonoscopy- advised pt to call Dr. Zazueta's office to schedulef/u in 3 weeks for BP check. Charting performed by Mario Okeefe, acting as scribe for Yoselin Valles.Yoselin Valles, DONALD: I reviewed the chart and agree with and approve of the documentation. Related to B12 deficiency Symptomatic over the past few years. Discussed that getting his blood pressure under control and treating his sleep apnea could help with this symptoms. Will check blood work today. Discussed doing a memory test at next visit and if persisting then a brain scan could be done. Will monitor. Related to Memory changes Symptomatic for 2 we eks, but since resolved. Recommended trying to get blood pressure under control and monitoring for any recurring symptoms. Related to Dizziness Diagnosed while in [facility] per pt report. CPAP is outdated and new one is required. Due to us not having the original sleep study- advised pt to repeat sleep study at [facility]- will send order. Can continue to use trazodone as needed to help with sleep. Notify for any issues with sleeping. Related to YANI (obstructive sleep apnea) BP of 174/98, 162/10 6 initially and 172/94 on recheck today. STOP: Losartan/ HCTZ 100mg - 12.5once daily due to coughing. START: amlodipine 10mg once daily.Encouraged low sodium diet <2000 mg/day.Will continue to monitor.Labs: CBC, CMP Related to Primary hypertension Dietary management e ducation, guidance, and counseling Related to Body mass index (BMI) 28.0-28.9, adult Symptomatic with itc hy throat and sinus congestion during flare ups.Recommended taking OTC antihistamine (Zyrtec, Claritin, Elizabeth) or Flonase to help with symptoms.Encouraged keeping windows closed and changing clothes or taking a shower after being outdoors.Discussed the possibility of doing a blood test for allergies. Related to Seasonal allergic rhinitis, unspecified trigger Pt can take Trazadon e 50mg at bedtime as needed.Pt continues to decline sleep study but he was told he can do one if he wants one. Related to Hx of sleep apnea BP of 152/90 today. CHANGE Lisinopril-HCTZ 20-12.5mg to Losartan 100mg once daily. Encouraged low sodium diet <2000 mg/day.Will continue to monitor. Related to Primary hypertension f/u in 4-6 weeks to check BP and labs Charting performed by Mario Okeefe, acting as scribe for Yoselin Valles.DONALD Shelton: I reviewed the chart and agree with and approve of the documentation. Related to Body mass index [BMI] 26.0-26.9, adult Dietary management e ducation, guidance, and counseling Related to Body mass index (BMI) 26.0-26.9, adult Medication management Advised pt to get eep study - [facility] - pt unable to reproduce testing done 18 years ago in . Continue Trazodone 50mg as directed. Can take Melatonin up to 15mg / day. Related to Fatigue, unspecified type As per previous labs . Encouraged a low cholesterol diet and regular cardiovascular exercise as tolerated. May consider medication at future visit if not controlled with diet. Will continue to monitor. Related to Hyperlipidemia, unspecified hyperlipidemia type See plan above. Related to Hx of sleep apnea BP of 150/86 and 144 /88 today. CHANGE Lisinopril 20mg QD to Lisinopril-HCTZ 20-12.5mg. Low sodium diet - 1800 mg/day. Follow DASH diet. Exercise - Recommend combined cardiovascular/strength exercise 2.5 hours/ week. Call in 3 weeks with BP readings. Will continue to monitor. Related to Primary hypertension BMI of 25.6 today. E ncouraged weight loss with healthy dietary choices, regular exercise, drinking plenty of water, and getting adequate rest. Will monitor. Charting performed by Mohsen Macdonald, acting as scribe for Yoselin Valles.DONALD Shelton: I reviewed the chart and agree with and approve of the documentation. Related to Body mass index [BMI] 25.0-25.9, adult Medication management Dietary management e ducation, guidance, and counseling Related to Body mass index (BMI) 25.0-25.9, adult Check labs today. Sl eep study - [facility] With hx of sleep apnea recommend sleep study - pt unable to reproduce testing done 18 years ago in . per RP - Recommend melatonin up to 15mg / day. Related to Fatigue, unspecified type Rest, no heavy lifti ng, no strenuous work. PT eval/ treat - declines.Written info given on exercises. Related to Bilateral low back pain without sciatica, unspecified chronicity Discussed could be r elated to elevated BP, sleep apnea. Given elevated BP we do not want to prescribe medication at this time. We will re-evaluate in 1 month. Related to Erectile dysfunction, unspecified erectile dysfunction type Uncontrolled. Start Lisinopril 20mg QD Low sodium diet - 1800 mg/dayFollow DASH diet. Exercise - Recommend combined cardiovascular/strength exercise 2.5 hours/ weekCall with BP readings in 2 weeksF/U in 1 month for PE / BP re-check. Related to Primary hypertension Treated by Dr. Zazueta . Obtain records, f/u as planned. Related to Hepatitis C virus infection without hepatic coma, unspecified chronicity See above Related to Hx of sleep apnea Dietary management e ducation, guidance, and counseling Related to Body mass index (BMI) 25.0-25.9, adult Disease process Pt given Shingles sd danny in office today. F/U as scheduled or sooner if neededMars Henriquez, Scribing for Carlota Phan. DO Harper: I reviewed the chart and agree with and approve of the documentation Related to Encounter for herpes zoster vaccination Will check PSA in office today. Related to Encounter for screening for malignant neoplasm of prostate Pt given referral to complete colonoscopy via Dr. Zazueta, as directed. Related to Encounter for screening colonoscopy Symptomatic - Pt giv en sample of Voltaren gel to apply to painful or swollen area as needed for pain. Will continue to monitor. Related to Lateral epicondylitis of right elbow Per US of scrotum in 12/2015 - will continue to monitor, complete US of scrotum as directed, pt given referral in office. Notify if symptoms occur or worsen. Related to Cyst of testis Per previous labs, w ill run hepatic panel in office today and pt given requisition to complete CT of abdomen and pelvis. Will continue to monitor. Related to Elevated liver enzymes Reviewed age appropr iate safety, nutrition, and health maintenance. Related to Annual physical exam Medication management Dietary management e ducation, guidance, and counseling Related to Body mass index (BMI) 24.0-24.9, adult Since Medrol Dose pa ck is being prescribed today, nonfasting blood glucose was checked: 90.Check CMP, Hgba1c today. Avoid sweets and refined carbs. Continue to monitor. Related to Screening for diabetes mellitus - History mildly dennys vated direct LDLCheck FLP today. Healthy diet.Continue to monitor. Related to Hypercholesterolemia - -History mildly el evated ALT, AST, uncertain etiologyCheck CMP today. If still elevated, plan to evaluate further, including liver ultrasound. Related to Elevated liver enzymes Check CMP, TSH, seru m folic acid and B12 - r/o underlying neuropathy. Discussion about Meralgia paresthetica - also hand out given. Continue to monitor - plan to talk after labs return. Related to Meralgia paresthetica of left side Check PSA today. Ret urn in near future for check up and fasting labs. Related to Screening for prostate cancer Dietary management e ducation, guidance, and counseling Related to Body mass index (BMI) 28.0-28.9, adult Handout Assessments Type Assessment Date No Information Patient Care Teams Name Effective Dates (start - stop) Status Members No Information
--- OUTSIDE RECORDS SUMMARY | 2024-05-05 17:15 | XMS_ITS | Continuity of Care Document ---
Author Organization [facility] Address [address] [place] [address] Phone Care Team Providers Care Tobacco Classer Name Role Phone Darlene Richard PTA Unavailable Unavailable Procedures Procedure Date Therapeutic Activities Neuromuscular Re-Ed Therapeutic Exercise Therapeutic Activities Neuromuscular Re-Ed Therapeutic Exercise Therapeutic Activities Neuromuscular Re-Ed Therapeutic Exercise Therapeutic Activities Neuromuscular Re-Ed Therapeutic Exercise Therapeutic Activities Neuromuscular Re-Ed Therapeutic Exercise Therapeutic Activities Neuromuscular Re-Ed Therapeutic Exercise Therapeutic Activities Neuromuscular Re-Ed Therapeutic Exercise Therapeutic Activities Neuromuscular Re-Ed Therapeutic Exercise Doc neg elder mal no plan PT Evaluation Moderate Complexity Therapeutic Activities Neuromuscular Re-Ed Therapeutic Exercise Advance Directives Directive Yes / No Effective Date File Name No Information Encounters Encounter Description Practice Location Reason(s) For Visit Diagnoses Date Provider Providers Copied on Encounter [facility] [address], [place], [place], [id number], tel:[phone] [place] No Information Jose Manuel Colon. . Referring Provider: Rafael Apodaca, [address], [place], [address]. tel:[phone] [facility] [address], [place], [place], [id number], [place] tel:[phone] [place] No Information Jose Manuel Colon. . Referring Provider: Rafael Apodaca, [address], [place], [address]. tel:[phone] [place] [address] [facility] [address], [place], [place], [id number], [place] tel:[phone] [place] No Information Shun Michaelsyn. . Referring Provider: Rafael Apodaca, [address], [place], [address]. tel:[phone], [place], [place], [id number], [place] tel:[phone] [place] No Information Shun Michaelsyn. . Referring Provider: Rafael Apodaca, [address], [place], [address]. tel:[phone] [facility] [address], [place], [place], [id number], [place] tel:[phone] [place] No Information Shnu Michaelsyn. . Referring Provider: Rafael Apodaca, [address], [place], [address]. tel:[phone] [address] [address], [place], [place], [id number], [place] tel:[phone] [place] No Information Shun Angeles . Referring Provider: Rafael Apodaca, [address], [place], [address]. tel:[phone] [facility] [address], [place], [place], [id number], [place] tel:[phone] [place] No Information Shun MichaelsynVíctor . Referring Provider: Rafael Apodaca, [address], [place], [address]. tel:[phone] [facility] [address], [place], [place], [id number], tel:[phone] [place] No Information Shun Angeles . Referring Provider: Rafael Apodaca, [address], [place], [address]. tel:[phone] [facility] [address] [place] [address] [address], [place], [place], [id number], tel:[phone] [place] No Information Shun MichaelsynVíctor . Referring Provider: Rafael Apodaca, [address], [place], [address]. tel:[phone] Family History Family Member Type Diagnosis Age At Onset No Information Payers Payer name Insurance type Covered republican ID Authorjona shlomo(s) [facility] [id number] Social History Type Description Quantity Date Captured Comments Sex Male Smoking Status No Information Chief Complaint And Reason For Visit No Information Reason For Referral Reason For Referral No Information Plan Of Treatment Date Type Action Status Goal Tobacco cessation counseling completed Goal Tobacco Cessation Counseling completed History Of Present Illness Encounter Date Complaint History Of Prese nt Illness No Information Functional Status Date Functional Assessmen t No Information Instructions Date Instruction Additional Infor mation Nov-22-2023 Dietary needs education Related to Overweight Prescribed activity/exercise edu cation Related to Overweight Assessments Type Assessment Date No Information Patient Care Teams Name Effective Dates (start - stop) Status Members No Information
--- OUTSIDE RECORDS SUMMARY | 2024-05-05 17:15 | XMS_ITS | Referral Summary ---
Author Organization [facility] Address [address] [place] [address] Care Team Providers Care Skip Locator Name Role Phone Louie Gee MD Unavailable [...] tolerance 10/03/2023 Coronary artery disease invo [place]ving [place] coronary artery of [place] heart 10/02/2023 Hypertension, essential 10/02/2023 Tobacco dependence 10/02/2023 Obstructive sleep apnea 10/02/2023 NSTEMI (non-ST elevated myocardial infarction) 0 10/01/2023 Left main coronary artery dissection 10/01/2023 Social History Tobacco Use Types Packs/Day Years Used Date Smoking Tobacco: Former Cigarettes 1 Smokeless Tobacco: Never Tobacco Cessation:Counseling Given: Not [...] on file Medical Devices Implanted Type Area [employer] Officer Device Identifier Shelf Expiration Date Model / Serial / Lot [employer] [place] [employer] Stent Drug Eluting S Megatron Us Mr 5.60f15pe [id number] - S0 - [id number] Implanted:Qty : 1 on 10/01/2023 by Louie Gee MD at [facility] Stent N/A: Coronary [employer] [place] [employer] 01/03/2025 [id number] / 0 / [id number] [employer] [place] [employer] Stent Drug Eluting S Megatron Us Mr 5.76s39uc [id number] - S0 - [id number] Implanted:Qty : 1 on 10/01/2023 by Louie Gee MD at [facility] Stent N/A: Coronary [employer] [place] [employer] 01/17/2025 [id number] / 0 / [id number] [employer] System Closure Repair Femoral Artery Suture Mediated Perclose Prostyle 10853-61 - S0 - [id number] Implanted:Qty : 1 on 10/01/2023 by Louie Gee MD at [facility] Vascular Closure Device Right: Femoral [employer] 06/28/2025 [id number] / 0 / [id number] Insurance [facility] FEDERAL Advance Directives For more information, please contact: [phone] * Full Code (Latest Code Status on File) Date Activated Date Inactivated Comments 10/01/2023 6:37 PM 10/03/2023 3:50 PM Care Teams Skip Locator Relationship Specialty Start Date End Date Rusty Ramsey MD [address] [place] [address] PCP - General Family Medicine 11/09/23 Louie Gee MD [address] [place] [address] Consulting Physician Cardiology 10/03/23
== END 2024-05-05 17:12 | disposition home or self-care (01) ==
LOC: CHSIMG 17:13
PROVIDERS: PCP Family Medicine; Visit Provider Family Medicine
DX: R05.3 Chronic cough (principal); R91.8 Other nonspecific abnormal finding of lung field
CPT/HCPCS: 71046

== ENCOUNTER 2024-05-11 15:51 | Outpatient (CLI) | payer BC, SELFPAY ==
--- NOTE | ~2024-05-11 | CT_ITS ---
Non-contrast CT scan of the Abdomen and Pelvis Clinical indication: Elevated right hemidiaphragm Technique: 2.5 mm axial scans were obtained through the abdomen and pelvis without intravenous or or al contrast. Dose reduction technique was used on this scan by utilizing automated exposure control a nd iterative reconstruction technique. The dose-length product (DLP) was 945.35 mGy-cm. Findings: Images through the lung bases reveal bandlike consolidation in the right lower lobe with a ir bronchograms and possible right posterior medial pleural thickening. There is diffuse elevation of the right hemidiaphragm. There is no evidence of renal or ureteral calculi. The kidneys and the ureters are nondilated. The liver, spleen, pancreas, gallbladder, and adrenals appear normal. There are atherosclerotic calci fications of the aorta. . There is no evidence of bowel obstruction. Sigmoid diverticulosis noted. Images through the pelvis were performed. There is no evidence of ascites or lymphadenopathy. Urinary bladder unremarkable. No pelvic mass. Impression: Diffuse elevation of the right hemidiaphragm. Consider right phrenic nerve palsy. Bandlike consolidation right lower lobe with pleural thickening. Appearance is suggestive of postradi ation or posttreatment change or other chronic postinflammatory change/atelectasis. Correlate clinica lly for any possibility of acute pneumonia or active malignancy. Reviewed, dictated and finalized at [facility]. Impression: Diffuse elevation of the right hemidiaphragm. Consider right phrenic nerve pals y. Bandlike consolidation right lower lobe with pleural thickening. Appearance is suggestive of postradiation or posttreatment change or other chronic postinflam matory change/atelectasis. Correlate clinically for any possibility of acute pn eumonia or active malignancy.
--- OUTSIDE RECORDS SUMMARY | 2024-05-11 17:27 | XMS_ITS | Referral Summary ---
Author Organization [facility] Address [address] [place] [address] Care Team Providers Care General Milling Superintendent Name Role Phone Rosalino Saleem DO Primary Care Provider [phone] Source Comments [facility],non-owned Affiliates and Associated Physician Practices is amultiple site organization consisting of ambulatory clinics and hospital sitesin [place], [place], [place] and [place]. This disclosure is being madepursuant to the Care Everywhere program and may not contain all information available regarding this patient. Last updated 17.[facility] [employer] Allergies No known active allergies Social History [...] of this assay have been determined by [employer]. The modifications have not been cleared or approved by the FDA. This assay has been validated pursuant to the CLIA regulations and is used for clinical purposes. For more information on this test, go to: http://education.AirXpanders.Fusion-io/faq/YCO31v3 (This link is being provided for informational/ educational purposes only.) Test Performed at: [employer] [facility] [address] [facility] [address] [address] JARQUIN DO,MPH 08/06/2020 1:23 PM CDT 08/06/2020 1:25 PM CDT Juarez Lepe VAULT PERSON-ST[facility] T[facility] - DIRECTOR PRODUCT DEVELOPMENT [facility] ORDER[employer]LES [facility] [address] [place] [address] from Last 3 Months or Most Recently Relevant to Health Maintenance Care Teams General Milling Superintendent Relationship Specialty Start Date End Date Rosalino Saleem DO [address] [place] [address] PCP - General Family Medicine 01/08/20
--- OUTSIDE RECORDS SUMMARY | 2024-05-11 17:27 | XMS_ITS | Patient Health Summary ---
Author Organization [facility] Address [address] [place] [address] Care Team Providers Care Consumer Education Specialist Name Role Phone Rosalino Saleem Primary Care Provider [phone] [facility],non-owned Affiliates and Associated Physician Practices is amultiple site organization consisting of ambulatory clinics and hospital sitesin [place], [place], [place] and [place]. This disclosure is being madepursuant to the Care Everywhere program and may not contain all information available regarding this patient. Last updated 17.[facility] Allergies No known active allergies Social History [...] of this assay have been determined by [employer]. The modifications have not been cleared or approved by the FDA. This assay has been validated pursuant to the CLIA regulations and is used for clinical purposes. For more information on this test, go to: http://MODLOFT.The Box Populi/faq/QFN87b9 (This link is being provided for informational/ educational purposes only.) Test Performed at: [facility] [address] [place] [address] [address] JARQUIN DO,MPH 08/06/2020 1:23 PM CDT 08/06/2020 1:25 PM CDT Juarez Lepe APRN-GONZALO LAB - CASE LOADER OPERATOR RY ORDERABLES Performing Organization Address [facility] de Phone Number [facility] [address] [place] [address] * PT-INR (08/06/2020 1:23 PM CDT) INR 1.0 [facility] Comment: Reference Range 0.9-1.1 Moderate-intensity Warfarin Therapy 2.0-3.0 Higher-intensity Warfarin Therapy 3.0-4.0 PT 10.3 9.0 - 11.5 sec [facility] Comment: For additional information, please refer to http://MODLOFT.The Box Populi/faq/CAH894 (This link is being provided for informational/ educational purposes only.) Test Performed at: [facility] [address] [place] [address] [address] JARQUIN DO,MPH 08/06/2020 1:23 PM CDT 08/06/2020 1:25 PM CDT Juarez RODRIGUEZ LAB - COAGULA TION ORDERABLES Performing Organization Address [facility] de Phone Number [facility] [address] [place] [address] * (ABNORMAL) CBC WITH DIFFERENTIAL (08/06/2020 1:23 [...] 0.5 % [facility] Comment: Test Performed at: [facility] [address] [place] [address] [address] JARQUIN DO,MPH 08/06/2020 1:23 PM CDT 08/06/2020 1:25 PM CDT Juarez Lepe JET HANDLER-CARTON REPAIRER LAB - HEMATOL OGY ORDERABLES [facility] [address] [place] [address] * COMPREHENSIVE METABOLIC PANEL (08/06/2020 1:23 PM CDT) Pathologist [facility] Glucose 90 65 - 99 mg/dL [facility] Comment: Fasting reference interval BUN 19 7 - 25 mg/dL [facility] Creatinine 0.86 0.70 - 1.33 mg/dL [facility] Comment: For patients >49 years of age, the reference limit for Creatinine is approximately 13% higher for people identified as -Gambian. eGFR by MDRD 96 > OR = [...] 46 U/L [facility] Comment: Test Performed at: [facility] [address] [place] [address] [address] JARQUIN DO,MPH 08/06/2020 1:23 PM CDT 08/06/2020 1:25 PM CDT Juarez Lepe JET HANDLER-CARTON REPAIRER LAB - CASE LOADER OPERATOR RY ORDERABLES Performing Organization Address City/State/[facility] de Phone Number [facility] [address] [place] [address] * (ABNORMAL) LIVER FIBROSIS PANEL (02/03/2020 12:09 PM CRUISE CONSULTANT) Fibrosis Score 0.75 [facility] Fibrosis Stage F4 [...] a>0.62 and a<=1.00 : A3 (severe activity) Whbis-6-Wvvhkbuvkze ins Quantitative 299(H) 106 - 279 mg/dL [facility] Haptoglobin 10(L) 43 - 212 mg/dL [facility] Apolipoprotein A-1 127 94 - 176 mg/dL [facility] Bilirubin Total 0.4 0.2 - 1.2 mg/dL [facility] GGT 18 3 - 85 U/L [facility] ALT 68(H) 9 - 46 U/L [facility] Reference ID [id number] [facility] Footnote SEE NOTE [facility] Comment: The reliability of results is dependent on compliance with the preanalytical and analytical conditions recommended by [facility]. The tests have to be deferred for: [...] The performance characteristics have been determined by [facility]. It has not been cleared or approved by the U.S. Food and Drug Administration. Performance characteristics refer to the analytical performance of the test. Heal[employer]ion, [employer], the associated logo, [facility] [place] and all associated Heal[employer]ion [employer]ostics way are the registered trademarks of [employer]. All third alliance party way - (R) and (TM) - are the property of their respective owners. (C) 3625-1161 [employer] Incorporated. All rights reserved. Test Performed at: [facility] [address] [place] [address] MARY ABURTO MD,PHD,MALDONADO Blood BLOOD SPECIMEN / Unknown 02/03/2020 12:09 PM CRUISE CONSULTANT 02/03/2020 12:11 PM CRUISE CONSULTANT Juarez Lepe APRN-GONZALO LAB - CASE LOADER OPERATOR RY ORDERABLES Performing Organization Address [facility] de Phone Number [facility] [address] [place] [address] * HEPATITIS C GENOTYPE (02/03/2020 12:09 PM CRUISE CONSULTANT) Hepatitis C Virus Genotype LIPA 3 [facility] Comment: The method used in this test is RT-PCR and reverse hybridization (Line Probe) of the 5' UTR and core region of the HCV genome. The analytical performance characteristics of this assay have been determined by [facility]. The modifications have not been cleared or approved by the FDA. This assay has been validated pursuant to the CLIA regulations and is used for clinical purposes. For additional information, please refer to http://education.Ion Healthcare /faq/HCVGenotyping (This link id being provided for informational/ educational purposes only.) Test Performed at: [facility] [address] [place] [address] Skylar CASEY Blood BLOOD SPECIMEN / Unknown 02/03/2020 12:09 PM CRUISE CONSULTANT 02/03/2020 12:11 PM CRUISE CONSULTANT Juarez Lepe APRN-CARTON REPAIRER LAB - CASE LOADER OPERATOR RY ORDERABLES Performing Organization Address [facility] de Phone Number [facility] [address] [place] [address] Care Teams Consumer Education Specialist Relationship Specialty Start Date End Date Rosalino Saleem DO [address] [address] PCP - General Family Medicine 01/08/20
--- OUTSIDE RECORDS SUMMARY | 2024-05-11 17:27 | XMS_ITS | Referral Summary ---
Author Organization [facility] Address [address] [place] [address] Care Team Providers Care Wind Project Manager Name Role Phone Louie Gee MD Unavailable [...] tolerance 10/03/2023 Coronary artery disease invo lving benton coronary artery of benton heart 10/02/2023 Hypertension, essential 10/02/2023 Tobacco dependence [...] on file Medical Devices Implanted Type Area Data Solutions Architect Device Identifier Shelf Expiration Date Model / Serial / Lot [employer] Kayy Stent Drug Eluting S Megatron Us Mr [id number] - S0 - [id number] Implanted:Qty : 1 on 10/01/2023 by Louie Gee MD at [facility] Stent N/A: Coronary [employer] Kayy 01/03/2025 [id number] / 0 / [id number] [employer] Kayy Stent Drug Eluting S Megatron Us Mr [id number] - S0 - [id number] Implanted:Qty : 1 on 10/01/2023 by Louie Gee MD at [facility] Stent N/A: Coronary [employer] Kayy 01/17/2025 [id number] / 0 / [id number] [employer] Vascular System Closure Repair Femoral Artery Suture Mediated Perclose Prostyle [id number] - S0 - [id number] Implanted:Qty : 1 on 10/01/2023 by Louie Gee MD at [facility] Vascular Closure Device Right: Femoral [employer] 06/28/2025 [id number] / 0 / [id number] Insurance [facility] FEDERAL Advance Directives For more information, please contact: [phone] * Full Code (Latest Code Status on File) Date Activated Date Inactivated Comments 10/01/2023 6:37 PM 10/03/2023 3:50 PM Care Teams Wind Project Manager Relationship Specialty Start Date End Date Rusty Ramsey MD [address] [facility] [address] [place] [address] PCP - General Family Medicine 11/09/23 Louie Gee MD [address] [place] [address] Consulting Physician Cardiology 10/03/23
--- OUTSIDE RECORDS SUMMARY | 2024-05-11 17:27 | XMS_ITS | Clinical Summary ---
Author Organization [facility] Address [address] [place] [address] Care Team Providers Care Visitor Information Assistant Name Role Phone CameronRosalino oates Primary Care Provider [phone] Source Comments [facility],non-owned Affiliates and Associated Physician Practices is amultiple site organization consisting of ambulatory clinics and hospital sitesin [place], [place], [place] and [place]. This disclosure is being madepursuant to the Care Everywhere program and may not contain all information available regarding this patient. Last updated 17.[facility] Allergies No known active allergies Social [...] complete this topic MENINGOCOCCAL (Group B) VACCINE SHARED DECISION-MAKING Aged Out No longer eligible based on patient's age to complete this topic MENINGOCOCCAL GROUPS A/C/Y/W VACCINE Aged Out No longer eligible based [...] C RNA QUANTITATIVE (08/06/2020 1:23 PM CDT) [facility] Hepatitis C Virus RNA, Quantitative Real Time PCR <15 NOT DETECTED NOT DETECTED IU/mL [employer] Hepatitis C Virus RNA, Quantitative Real Time PCR <1.18 NOT DETECTED NOT DETECTED Log IU/mL [facility] Comment: This test was performed using Real-Time Polymerase Chain Reaction. Reportable Range: 15 IU/mL to 100,000,000 IU/mL (1.18 Log IU/mL to 8.00 Log IU/mL). The analytical performance characteristics of this assay have been determined by [employer]. The modifications have not been cleared or approved by the FDA. This assay has been validated pursuant to the CLIA regulations and is used for clinical purposes. For more information on this test, go to: http://education.LED Engin.Rypos/faq/EAS75k9 (This link is being provided for informational/ educational purposes only.) Test Performed at: [facility] [address] [place] [address] [address] JARQUIN DO,MPH 08/06/2020 1:23 PM CDT 08/06/2020 1:25 PM CDT Juarez Gomez McMurray STAFFING OPERATIONS MANAGER-HEALTH INSURANCE AGENT LAB - REVENUE ANALYST RY ORDERABLES [facility] [address] [place] [address] from Last 3 Months or Most Recently Relevant to Health Maintenance Care Teams Visitor Information Assistant Relationship Specialty Start Date End Date Rosalino Saleem DO [address] [facility] [address] [place] [address] PCP - General Family Medicine 01/08/20
--- OUTSIDE RECORDS SUMMARY | 2024-05-11 17:28 | XMS_ITS | Continuity of Care Document ---
Author Organization [facility] Address [address] [place] [address] Phone Care Team Providers Care Licensed Prosthetist Name Role Phone Darlene Richard PTA Unavailable [...] Diagnoses Date Provider Providers Copied on Encounter [facility] [address], [place], [place], [id number], tel:[phone] [place] No Information Jose Manuel Colon. . Referring Provider: Rafael Apodaca, [address], [place], [address]. tel:[phone] [facility] [address], [place], [place], [id number], [place] tel:[phone] [place] No Information Jose Manuel Colon. . Referring Provider: Rafael Apodaca, [address], [place], [address]. tel:[phone] [place] [address] [facility] [address], [place], [place], [id number], [place] tel:[phone] [place] No Information Shun Michaelsyn. . Referring Provider: Rafael Apodaca, [address], [place], [address]. tel:[phone], [place], [place], [id number], [place] tel:[phone] [place] No Information Shun Michaelsyn. . Referring Provider: Rafael Apodaca, [address], [place], [address]. tel:[phone] [facility] [address], [place], [place], [id number], [place] tel:[phone] [place] No Information Shun Michaelsyn. . Referring Provider: Rafael Apodaca, [address], [place], [address]. tel:[phone] [place] [address] [facility] [address], [place], [place], [id number], [place] tel:[phone] [place] No Information Shun Angeles . Referring Provider: Rafael Apodaca, [address], [place], [address]. tel:[phone] [facility] [address] [facility] [address], [place], [place], [id number], [place] tel:[phone] [place] No Information Shun MichaelsynVíctor . Referring Provider: Rafael Apodaca, [address], [place], [address]. tel:[phone] [facility] [address] [facility] [address], [place], [place], [id number], tel:[phone] [place] No Information Shun Angeles . Referring Provider: Rafael Apodaca, [address], [place], [address]. tel:[phone] [facility] [address] [place] [address] [address], [place], [place], [id number], tel:[phone] [place] No Information Shun MichaelsynVíctor . Referring Provider: Rafael Apodaca, [address], [place], [address]. tel:[phone] Family History Family Member Type Diagnosis Age At Onset No Information Payers Payer name Insurance type Covered republican ID Authorjona shlomo(s) [facility] [id number] Social History Type Description Quantity Date Captured [...]
--- OUTSIDE RECORDS SUMMARY | 2024-05-11 17:28 | XMS_ITS | Clinical Summary ---
Author Organization [facility] Address [address] [place] [address] Care Team Providers Care Manager Strategic Sourcing Name Role Phone Unavailable Primary Care Provider Unavailabl e Encounters Date Type Department Care Team Description 05/08/2024 External Device Data [facility] ABSTRACTION Provider, Abstract 03/23/2024 External Device Data [facility] ABSTRACTION Provider, Abstract 03/14/2024 External Device Data [facility] ABSTRACTION Provider, Abstract from Last 3 Months Social History Tobacco Use Types Packs/Day Years Used Date Smoking Tobacco: Never Assessed Sex and Gender Information Value Date Recorded Sex Assigned at Not on file Legal Sex Male 4:30 AM SCARF GLUER Gender Identity Not on file Sexual Orientation [...] series) 2021 INFLUENZA VACCINE (#1) 2023 Insurance [facility] FEDERAL
--- OUTSIDE RECORDS SUMMARY | 2024-05-11 17:28 | XMS_ITS | Continuity of Care Document ---
Author Organization [facility] Address [address] [place] [address] Phone Care Team Providers Care Freight Hustler Name Role Phone Rusty Ramsey MD Unavailable [...] No Longer Active Procedures Procedure Date OFFICE [id number] BODY MASS INDEX DOCD SYST BP LT 130 MM HG DIAST BP < 80 MM HG FALL RISK ASSESSMENT DOC'D PRES/ABSN URINE INCON ASSESS PREVENTATIVE-NEW: 40-64 Aug-29-2024 BODY MASS INDEX DOCD SYST BP LT 130 MM HG DIAST BP 80-89 MM HG CBC, INC PLATELETS AND DIFFERENTIAL COMPREHEN METABOLIC PANEL [facility] 4 ROUTINE VENIPUNCTURE OFFICE [id number] BODY MASS INDEX DOCD SYST BP GE 130 - 139MM HG DIAST BP 80-89 MM HG COMPREHEN METABOLIC PANEL CMP 3 ROUTINE VENIPUNCTURE OFFICE [id number] BODY MASS INDEX DOCD SYST BP GE 130 - 139MM HG DIAST BP < 80 MM HG OFFICE [id number]-[id number] BODY MASS INDEX DOCD SYST BP >= 140 MM HG6 IT DIAST BP < 80 MM HG Pt inelig neg scrn depres CBC, INC PLATELETS, NO DIFFERENTIAL COMPREHEN METABOLIC PANEL [facility] 3 HEMOGLOBIN A1C HGA1C, GLYCO LIPID PANEL PSA, TOTAL THYROID STIMULATION HORMONE(TSH) 2022 VITAMIN B12 (SERUM) ROUTINE VENIPUNCTURE OFFICE [id number]-[id number] BODY MASS [facility]DEX [facility] >= 140 MM HG6 IT DIAST BP >= 90 MM HG OFFICE ZOSFF-GPG-MTWHWUQR BODY MASS INDEX DOCD SYST BP >= 140 MM HG6 IT DIAST BP >= 90 MM HG OFFICE EZHNE-YAP-KIEUEBUR BODY MASS INDEX DOCD SYST BP >= 140 MM HG6 IT DIAST BP 80-89 MM HG BASIC METABOLIC PANEL(BMP) ROUTINE VENIPUNCTURE Pt inelig neg scrn depres [facility] PANEL HEMOGLOBIN A1C HGA1C, GLYCO LIPID PANEL PSA, TOTAL ROUTINE VENIPUNCTURE URINALYSIS, DIPSTICK (UA) - Office Lab A OFFICE [id number]-[id number]-[id number] BODY MASS INDEX DOCD SYST BP >= [...] Diagnoses Date Provider Providers Copied on Encounter [facility], [address], [place], [place], [address] , [place] tel:[phone] [facility] No Information [address] [place] [address], [address], [place], [place], [address], [place]. [phone] OFFICE OVJYM-WZC-TK PANDED [facility], [address], [place], [place], [address] , tel: [phone] [facility] acute problem (chief complaint) Body mass index [BMI] 29.0-29.9, adultShortness of breath [address] [place] [address], [address], [place], [place], [address], . tel:[phone] Referring Provider: Rusty Ramsey, [address] [place] [address], [place], [address] . tel:[phone] [facility], [address], [place], [place], [address] , [place] tel: [phone] [facility] Shortness of breath 4 Roxy Richard [address] [place] [address], Suite [facility], [place], [place], [address], . tel:[phone] [facility], [address], [place], [place], [address] , tel: [phone] [facility] No Information 4 Roxy Richard [address] [place] [address], [place] [address], [place], [place], [address], [place]. tel:[phone] PREVENTATIVE -NEW: 40-64 [facility], [address], [place], [place], [address] , tel: [phone] [facility] preventive exam (chief complaint)C hronic Conditions (chief complaint) Encounter for general adult medical examination without abnormal findingsAtherosc lerotic heart disease of [place] coronary artery without angina pectorisEssentia l (primary) hypertensionToba tobacco warehouse manager usePersonal history of other infectious and parasitic diseasesBody mass index [BMI] 29.0-29.9, adult 4 Roxy Richard [address] [place] [address], [place] [address], [place], [place], [address], [place]. tel:[phone] Referring Provider: Rusty Ramsey [address] [place] [address], [place], [address] . tel:[phone] OFFICE QNBIP-LPG-VM [facility], [address], [place], [place], [address] , tel:[phone] [place] Chronic condition. (chief complaint) Body mass index [BMI] 29.0-29.9, [id number] deficiencyOSA (obstructive sleep apnea)Primary hypertensionErec tile dysfunction, unspecified erectile dysfunction typeHyperlipidem ia, unspecified hyperlipidemia typeTobacco useBrachial neuritis 3 Harper Jerry. [address] [place] [address], [address], [place], [place], [address], [place]. tel:[phone] Referring Provider: Rosalino Saleem, [address] [place] [address], [place], [address] . tel:[phone] OFFICE TLSJW-FXO-FV [facility], [address], [place], [place], [address] , [phone] [place] R shoulder pain. (chief complaint) Body mass index [BMI] 28.0-28.9, adultRight shoulder pain, unspecified chronicity 3 Harper Jerry. [address] [place] [address], Suite [facility], [place], [place], [address], [place]. tel:[phone] Referring Provider: Rosalino Saleem, [address] [place] [address], [place], [address] . tel:[phone] OFFICE MHJOD-CXY-NE [facility], [address], [place], [place], [address] , [phone] [place] follow up bp and sleep study. (chief complaint) Body mass index [BMI] 27.0-27.9, adultPrimary hypertensionOSA (obstructive sleep apnea)B12 deficiencyPain of right shoulder regionErectile dysfunction, unspecified erectile dysfunction type 3 Hai Brannon. [address] [place] [address], [address], [place], [place], [address], [place]. tel:[phone] Referring Provider: Rosalino Saleem, [address] [place] [address] Suite [facility], [place], [address] . tel:[phone] OFFICE BMNPT-HFT-FZ TAILED [facility], [address], [place], [place], [address] , tel:[phone] [place] Body mass index [BMI] 28.0-28.9, adultPrimary hypertensionOSA (obstructive sleep apnea)Tobacco useMemory changesDizziness Hyperlipidemia, unspecified hyperlipidemia typeB12 deficiencyScreen ing PSA (prostate specific antigen) 3 Hai Brannon. [address] [place] [address], [place] [address], [place], [place], [address], . tel:[phone] Referring Provider: Rosalino Saleem, [address] [place] [address], [place], [address] . tel:[phone] OFFICE OPTQW-TEA-LD TAILED [facility], [address], [place], [place], [address] , tel:[phone] [place] BP follow up (chief complaint) Body mass index [BMI] 26.0-26.9, adultPrimary hypertensionHx of sleep apneaSeasonal allergic rhinitis, unspecified trigger Aug-0 2 Hai Brannon. [address] [place] [address], [place] [address], [place], [place], [address], . tel:[phone] Referring Provider: Rosalino Saleem, [address] [place] [address], [place], [address] . tel:[phone] [facility], [address], [place], [place], [address] , tel:[phone] [place] No Information 2 Harper Jerry. [address] [place] [address], [place] [address], [place], [place], [address], . tel:[phone] OFFICE GCAWK-NBK-TW TAILED [facility], [address], [place], [place], [address] , tel:[phone] [place] blood pressure follow up (chief complaint) Body mass index [BMI] 25.0-25.9, adultFatigue, unspecified typeHx of sleep apneaPrimary hypertensionToba tobacco warehouse manager useHyperlipidemi a, unspecified hyperlipidemia type 2 Hai Brannon. [facility], [facility] [address], [place], [place], [address], [place]. tel:[phone] Referring Provider: Rosalino Saleem, [address] [place] [address], [place], [address] . tel:[phone] OFFICE IUAWN-UWO-XA MP [facility], [address], [place], [place], [address] , tel:[phone] [place] fatigue, back pain, ED, (chief complaint) Body mass index [BMI] 25.0-25.9, adultHepatitis C virus infection without hepatic coma, unspecified chronicityPrimar y hypertensionHx of sleep apneaEncounter for screening for malignant neoplasm of prostateFatigue, unspecified typeErectile dysfunction, unspecified erectile dysfunction typeBilateral low back pain without sciatica, unspecified chronicityTobacc o use 2 Hai Brannon. [facility], [place] [address], [place], [place], [address], [place]. tel:[phone] Referring Provider: Rosalino Saleem, [facility] [place] [address], [place], [address] . tel:[phone] PREVENTATIVE -EST: 40-64 [facility], [address], [place], [place], [address] , [place] tel:[phone] [place] PE (chief complaint) Body mass index (BMI) 24.0-24.9, adultAnnual physical examElevated liver enzymesLateral epicondylitis of right elbowCyst of testisEncounter for screening for malignant neoplasm of prostateEncounte r for screening colonoscopyEncou nter for herpes zoster vaccination 0 Harper Jerry. [facility], [place] [address], [place], [place], [address], [place]. tel:[phone] Referring Provider: Rosalino Saleem, [facility] [place] [address], [place], [address] . tel:[phone] [facility], [address], [place], [place], [address] , [place] tel:[phone] [place] left leg numbness around knee area (chief complaint) Body mass index (BMI) 28.0-28.9, adultMeralgia paresthetica of left sideScreening for prostate cancerElevated liver enzymesHyperchol esterolemiaScree nelia for diabetes mellitus 9 Gomez Banks. [address], [address], [place], [place], [address]. tel:[phone] Referring Provider: Rosalino Saleem, [address] [place] [address], [place], [address] . tel:[phone] [facility], [address], [place], [place], [address] , tel: [phone] [place] Body mass index (BMI) 28.0-28.9, adultHerpes zoster without complication 7 [facility]. [address] [place] [address], [email or web address] [address], [place], [place], [address], . tel:[phone] Referring Provider: Rosalino Saleem, [address] [place] [address], [place], [address] . tel:[phone] [facility], [address], [place], [place], [address] , tel:[phone] [place] Annual physical examElevated LFTsSlow urinary streamSpermatoce le of epididymis, unspecifiedOther hydroceleTobacco use 6 [facility]. [address], [facility] [[email or web address] [address], [place], [place], [address], . tel:[phone] Referring Provider: Rosalino Saleem, [facility] [address], [place], [address] . tel:[phone] [facility], [address], [place], [place], [address] , tel:[phone] [place] Mass of scrotumEncounter for screening for malignant neoplasm of prostateEncounte r for screening for diabetes mellitusEncounte r for screening for endocrine disorderScreenin g examination for venereal disease 6 Harper Jerry. [address], [address], [place], [place], [address], [place]. tel:[phone] Referring Provider: Rosalino Saleem, [address], [place], [address] . tel:[phone] [facility], [address], [place], [place], [address] , [place] tel: [phone] [place] Slowing of urinary streamRoutine general medical examination at a health care facilityAbdomina l pain, unspecified siteTobacco abuseScreening for endocrine, nutritional, metabolic anScreening for lipoid disordersRoutine general medical examination at a health care facility 2 Jr Dunlapily. [address], [address], [place], [place], [address], [place]. tel:[phone] Referring Provider: Rosalino Saleem, [address] [facility] [address], [place], [address] . tel:[phone] Family History Family Member Type Diagnosis Age At Onset No Information Immunizations Vaccine Date Status Comments SHINGRIX (Zoster vaccine recombinant, adjuvanted) administered Source: Other R egistry SHINGRIX (Zoster vaccine recombinant, adjuvanted) administered Source: New Imm unization Record Fluzone Quad, preservative free, split virus, 0.5mL dosage administered Source: Other Regist ry Payers Payer name Insurance type Covered democrat ID Authoriza tion(s) [facility] ACCESS [id number] [facility] ACCESS [id number] Social History Type Description Quantity Date Captured [...] Bilateral chest ordered Referral Referred To: [address] [place], [place], [id number] Ordered: COLONOSCOPY, Flexible, Proximal To Splenic, Diagnostic, Wor W/O Collection Of Sp ordered Referral Referred To: [id number] [facility]
[address] [place], [id number] Ordered: Split night polysomnography ordered Referral Ordered: Ultrasound, scrotum ordered Referral Ordered: CT abdomen and pelvis w contrast ordered Future Order: Radiology Order Ul trasound, scrotum ([id number]), Sent on: Sent History Of Present Illness [...] ting for R shoulder pain few months [employer]. Associated sx include limited ROM. Pt tried [...] with this. chornic conditions. Pt today is Dmitri Araya a 61 [...] attack. Related to Atherosclerotic heart disease of [place] coronary artery without angina pectoris Please continue [...] symptoms. Related to Dizziness Diagnosed while in [employer] per pt report. CPAP is outdated and new one is required. Due to us not having the original sleep study- advised pt to repeat sleep study at [facility]- will send order. Can continue to [...] Advised pt to get eep study - [facility] - pt unable to reproduce testing [...] Check labs today. Sl eep study - [facility] With hx of sleep apnea recommend [...] 25.0-25.9, adult Disease process Pt given Shingles ut danny in office today. F/U as scheduled [...]
--- OUTSIDE RECORDS SUMMARY | 2024-05-11 17:28 | XMS_ITS | Encounter Summary ---
Author Organization [facility] Address [address] [place] [address] Care Team Providers Care Lathe Operator Contact Lens Name Role Phone Mateusz King MD Primary Care Provider Encounter Details Date Type Department Care Team (Late st Contact Info) Description 04/26/2024 Transcribe Orders [facility] Pre Access Team [address] [place] [address] Mateusz King MD [address] [place] [address] Social History Tobacco Use Types Packs/Day Years Used Date Smoking Tobacco: Never Assessed Sex and Gender Information Value Date Recorded Sex Assigned at Not on file Legal Sex Male 7:20 AM BURR BENCH HAND Gender Identity Not on file Sexual Orientation Not on file documented as of this encounter Plan of Treatment Not on file documented as of this encounter Visit Diagnoses Not on filedocumented in this encounter Care Teams Lathe Operator Contact Lens Relationship Specialty Start Date End Date Mateusz King MD [address] [place] [address] PCP - General FAMILY PRACTICE 05/02/24 documented as of this encounter
--- OUTSIDE RECORDS SUMMARY | 2024-05-11 17:28 | XMS_ITS | Clinical Summary ---
Author Organization [facility] Address [address] [place] [address] Care Team Providers Care Yeast Tender Name Role Phone Louie Gee MD Unavailable [...] tolerance 10/03/2023 Coronary artery disease invo lving campo coronary artery of campo heart 10/02/2023 Hypertension, essential 10/02/2023 Tobacco dependence [...] this topic Medical Devices Implanted Type Area Assayer Helper Device Identifier Shelf Expiration Date Model / Serial / Lot [place] [employer] Stent Drug Eluting S Megatron Us Mr 5.88z08lb [id number] - S0 - [id number] Implanted:Qty : 1 on 10/01/2023 by Louie Gee MD at [facility] Stent N/A: Coronary [employer] 01/03/2025 [id number] / 0 / [id number] [employer] Stent Drug Eluting S Megatron Us Mr 5.02q31ya [id number] 0 - S0 - [id number] Implanted:Qty : 1 on 10/01/2023 by Louie Gee MD at [facility] Stent N/A: Coronary [employer] 01/17/2025 [id number] / 0 / [id number] [employer] System Closure Repair Femoral Artery Suture Mediated Perclose Prostyle 31383-33 - S0 - [id number] Implanted:Qty : 1 on 10/01/2023 by Louie Gee MD at [facility] Vascular Closure Device Right: Femoral [employer] 06/28/2025 [id number] / 0 / [id number] Insurance [facility] FEDERAL Advance Directives For more information, please contact: [phone] * Full Code (Latest Code Status on File) Date Activated Date Inactivated Comments 10/01/2023 6:37 PM 10/03/2023 3:50 PM Care Teams Yeast Tender Relationship Specialty Start Date End Date Rusty Ramsey MD [address] [facility] [address] [place] [address] PCP - General Family Medicine 11/09/23 Louie Gee MD [address] [facility] [address] [place] [address] Consulting Physician Cardiology 10/03/23
--- OUTSIDE RECORDS SUMMARY | 2024-05-11 17:28 | XMS_ITS | Clinical Summary ---
Author Organization [facility] Address [address] [place] [address] Care Team Providers Care Department Secretary Name Role Phone Uzma Haynes MD Primary Care Provider [phone] Encounters Date Type Department Care Team Description 05/02/2024 1:43 PM PC TECH - 05/02/2024 11:59 PM PC TECH Hospital Encounter [facility] [address] [place] [address] Uzma Haynes MD Discharge Disposition: Home or Self Care (Routine Discharge) 04/26/[address] [facility] Pre Access Team [address] [place] [address] Uzma Haynes MD from Last 3 Months Social History Tobacco Use Types Packs/Day Years Used Date Smoking Tobacco: Never Assessed Sex and Gender Information Value Date Recorded Sex Assigned at Not on file Legal Sex Male 7:20 AM PC TECH Gender Identity Not on file Sexual Orientation [...] XR ESOPHAGRAM/BARIUM SWALLOW Routine 05/02/2024 2:19 PM PC TECH Dysphagia, unspecified from Last 3 Months Results * XR ESOPHAGRAM/BARIUM SWALLOW (05/02/2024 2:19 PM PC TECH) Anatomical Region Laterality Modality Chest, Abdomen Radiographic Hina ging, Radiographic Imaging 05/02/2024 3:10 PM PC TECH Impressions 05/02/2024 3:12 PM PC TECH IMPRESSION: 1. No evidence of stricture, dilatation, [...] 05/02/2024 3:10 PM Narrative 05/02/2024 3:12 PM PC TECH [address] [address] EXAMINATION: DUAL PHASE ESOPHAGRAM EXAM DATE: 05/02/2024 [...] barium pill demonstrated no abnormality. Procedure Note Hai Trinidad MD - 05/02/2024 [facility] [address] [place] [address] EXAMINATION: DUAL PHASE ESOPHAGRAM EXAM DATE: 05/02/2024 [...] Result from Last 3 Months Insurance [facility] Care Teams Department Secretary Relationship Specialty Start Date End Date Uzma Haynes MD [address] [place] [address] PCP - General FAMILY PRACTICE 05/02/24
== END 2024-05-11 15:52 | disposition home or self-care (01) ==
LOC: CHSIMG 15:53
PROVIDERS: PCP Family Medicine; Visit Provider Family Medicine
DX: J98.6 Disorders of diaphragm (principal); R91.8 Other nonspecific abnormal finding of lung field
CPT/HCPCS: 74176

== ENCOUNTER 2024-06-09 16:05 | Outpatient (CLI) | payer BC, SELFPAY ==
--- NOTE | ~2024-06-09 | CT_ITS ---
CT scan of the Neck Technique: 2.5 mm axial scans were obtained through the neck after intravenous administration of 75 c c Omnipaque 350. Coronal and sagittal reconstructions of the neck were obtained. Dose reduction techn ique was used on this scan by utilizing automated exposure control and iterative reconstruction techn ique. The dose-length product (DLP) was 452.97 mGy-cm. Clinical History: Globus sensation, dysphonia Findings: There is no evidence of any significant cervical lymphadenopathy. Several small, nonenlarged jugulo- digastric and posterior cervical lymph nodes are noted bilaterally. Parapharyngeal spaces appear norm al bilaterally. The parotid and submandibular glands appear normal. The pharyngeal mucosal spaces appear normal. No soft tissue masses are seen in the neck. The thyroid gland appears normal. Images of the lung apices reveal no abnormalities. Moderate degener ative spondylosis of the cervical spine, with partial fusion across the C3-C4 disc space. Impression: No significant abnormalities noted. Reviewed, dictated and finalized at [facility]. Impression: No significant abnormalities noted.
--- OUTSIDE RECORDS SUMMARY | 2024-06-09 16:08 | XMS_ITS | Clinical Summary ---
Author Organization [employer] 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
--- OUTSIDE RECORDS SUMMARY | 2024-06-09 16:08 | XMS_ITS | Referral Summary ---
Author Organization [facility] Address [address] [place] [address] Care Team Providers Care Professional Employer Consultant Name Role Phone Louie Gee MD Unavailable [...] tolerance 10/03/2023 Coronary artery disease invo lving [place] coronary artery of [place] heart 10/02/2023 Hypertension, essential 10/02/2023 Tobacco dependence [...] on file Medical Devices Implanted Type Area Brake Mechanic Device Identifier Shelf Expiration Date Model / Serial / Lot [employer] Stent Drug Eluting S Megatron Us Mr 5.67w09nn [id number] - S0 - [id number] Implanted:Qty : 1 on 10/01/2023 by Louie Gee MD at [facility] Stent N/A: Coronary [employer] 01/03/2025 [id number] / 0 / [id number] [employer] Stent Drug Eluting S Meg[employer]ron Us Mr 5.71h85ou [id number] 0 - S0 - [id number] Implanted:Qty : 1 on 10/01/2023 by Loiue Gee MD at [facility] Stent N/A: Coronary [employer] 01/17/2025 [id number] / 0 / [id number] [employer] System Closure Repair Femoral Artery Suture Mediated Perclose Prostyle 67335-45 - S0 - [id number] Implanted:Qty : 1 on 10/01/2023 by Louie Gee MD at [facility] Vascular Closure Device Right: Femoral [employer] 06/28/2025 [id number] / 0 / [id number] Insurance [facility] FEDERAL Advance Directives For more information, please contact: [phone] * Full Code (Latest Code Status on File) Date Activated Date Inactivated Comments 10/01/2023 6:37 PM 10/03/2023 3:50 PM Care Teams Professional Employer Consultant Relationship Specialty Start Date End Date Rusty Ramsey MD [address] [facility] [facility] [address] [place] [address] PCP - General Family Medicine 11/09/23 Louie Gee MD [address] [place] [address] Consulting Physician Cardiology 10/03/23
--- OUTSIDE RECORDS SUMMARY | 2024-06-09 16:08 | XMS_ITS | Encounter Summary ---
Author Organization [facility] Address [address] [place] [address] Care Team Providers Care Tile Molder Name Role Phone Uzma Haynes MD Primary Care Provider [phone] Encounter Details Date Type Department Care Team (Late st Contact Info) Description 06/08/2024 8:10 AM CDT Hospital Encounter [facility] Diagnostic Imaging [place] [address] Uzma Haynes MD [address] [place] [id number] Arrived Social History Tobacco Use Types Packs/Day Years Used Date Smoking Tobacco: Never Assessed Sex and Gender Information Value Date Recorded Sex Assigned at Male 06/01/2024 2:09 PM CDT 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 Refer to report of speech pathologist for further discussion and recommendations. Ordered By: UZMA HAYNES Interpreted By: Zacarias Mcclure, 06/08/2024 3:45 PM Narrative 06/08/2024 3:51 PM CDT [address] [address] IMAGING STUDIES: XR SPEECH SWALLOW?MATEO ONLY DATE: 06/08/2024 8:22 AM HISTORY: Dysphagia 63-year-old male. Dysphasia. Patient reports stasis and coughing with almost every meal. Smoker. On esophagram 05/02/[address] [facility], reported deep laryngeal penetration with thin barium and follow-up video swallow study was recommended for COMPARISON: None DISCUSSION: With the patient seated, video fluoroscopy performed from a lateral projection while the speech pathologist administered varying consistencies. Fluoroscopy time: 1 minute. Recorded radiation dose: Total ED 1.9 mGy. Total DAP 621.3 dGycm2. Cervical spine: Potential bony fusion at C3-4 level. Small anterior osteophytes at superior C3, C4-5 and C5-6 levels. Puree consistency by spoon: 2 trials. No laryngeal penetration or aspiration. Thin fluid by cup: 2 trials. Spill to the pyriform. No laryngeal penetration or aspiration. Thin fluid by straw: No laryngeal penetration or aspiration. Solid/Cracker consistency: 2 trials. No laryngeal penetration or aspiration. Mild vallecular residue. Procedure Note Zacarias Mcclure MD - 06/08/[address] [address] IMAGING STUDIES: XR SPEECH SWALLOW?MATEO ONLYDATE: 06/08/2024 8:22 AM HISTORY: Dysphagia 63-year-old male. Dysphasia. Patient reports stasisand coughing with almost every meal. Smoker. On esophagram 05/02/2024 at [facility], reported deep laryngeal penetration with thin barium andfollow-up video swallow study was recommended for COMPARISON: None DISCUSSION: With the patient seated, video fluoroscopy performed from a lateralprojection while the speech pathologist administered varyingconsistencies. Fluoroscopy time: 1 minute. Recorded radiation dose: Total ED 1.9 mGy.Total DAP 621.3 dGycm2. Cervical spine: Potential bony fusion at C3-4 level. Small anteriorosteophytes at superior C3, C4-5 and C5-6 levels. Puree consistency by spoon: 2 trials. No laryngeal penetration oraspiration. Thin fluid by cup: 2 trials. Spill to the pyriform. No laryngealpenetration or aspiration. Thin fluid by straw: No laryngeal penetration or aspiration. Solid/Cracker consistency: 2 trials. No laryngeal penetration oraspiration. Mild vallecular residue. IMPRESSION: No laryngeal penetration or aspiration. Refer to report of speechpathologist for further discussion and recommendations. Ordered By: UZMA HAYNES Interpreted By: Zacarias Mcclure, 06/08/2024 3:45 PM Uzma Haynes MD FLUOROSCOPY Final Result documented in this encounter Visit Diagnoses Diagnosis Dysphagia Dysphagia, unspecified Abnormal barium swallow Nonspecific (abnormal) findings on radiological and other examination of gastrointestinal tract documented in this encounter Administered Medications Inactive Administered Medications - up to 3 most recent administrations Medication Order MAR Action Action Date Dose Rate Site barium sulfate (E-Z PASTE) 60 % oral cream Oral, IMG once as needed, Contrast, 1 dose, Starting on Charley 06/08/24 at 0844, Until Charley 06/08/24 at 0845 Given 06/08/2024 8:45 AM CDT barium sulfate (E-Z-PAQUE) 96 % suspension 176 g 176 g, Oral, IMG once as needed, Contrast, 1 dose, Starting on Charley 06/08/24 at 0844, Until Charley 06/08/24 at 0845 Given 06/08/2024 8:45 AM CDT 176 g documented in this encounter Care Teams Tile Molder Relationship Specialty Start Date End Date Uzma Haynes MD [address] [place] [address] PCP - General FAMILY PRACTICE 05/02/24 documented as of this encounter
--- OUTSIDE RECORDS SUMMARY | 2024-06-09 16:08 | XMS_ITS | Encounter Summary ---
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
--- OUTSIDE RECORDS SUMMARY | 2024-06-09 16:08 | XMS_ITS | Continuity of Care Document ---
Author Organization [facility] Address [address] [facility] [address] [place] [address] Phone Care Team Providers Care Generator Assembler Name Role Phone Darlene Richard PTA Unavailable [...] Diagnoses Date Provider Providers Copied on Encounter [facility] [address], [place], [place], [id number], tel:[phone] [place] No Information Jose Manuel Colon. . Referring Provider: Rafael Apodaca, [address], [place], [address]. tel:[phone] [facility] [address], [place], [place], [id number], [place] tel:[phone] [place] No Information Jose Manuel Colon. . Referring Provider: Rafael Apodaca, [address], [place], [address]. tel:[phone] [place] [address] [facility] [address], [place], [place], [id number], [place] tel:[phone] [place] No Information Shun Michaelsyn. . Referring Provider: Rafael Apodaca, [address], [place], [address]. tel:[phone], [place], [place], [id number], [place] tel:[phone] [place] No Information Shun Michaelsyn. . Referring Provider: Rafael Apodaca, [address], [place], [address]. tel:[phone] [facility] [address], [place], [place], [id number], [place] tel:[phone] [place] No Information Shun Michaelsyn. . Referring Provider: Rafael Apodaca, [address], [place], [address]. tel:[phone] [place] [address] [facility], [place], [place], [id number], [place] tel:[phone] [place] No Information Shun Angeles . Referring Provider: Rafael Apodaca, [address], [place], [address]. tel:[phone] [facility] [address] [facility] [address] [facility] [address], [place], [place], [id number], [place] tel:[phone] [place] No Information Shun MichaelsynVíctor . Referring Provider: Rafael Apodaca, [address], [place], [address]. tel:[phone] [facility] [address], [place], [place], [id number], tel:[phone] [place] No Information Shun Angeles . Referring Provider: Rafael Apodaca, [address], [place], [address]. tel:[phone] [facility] [address] [place] [address] [address], [place], [place], [id number], tel:[phone] [place] No Information Shun MichaelsynVíctor . Referring Provider: Rafael Apodaca, [address], [place], [address]. tel:[phone] Family History Family Member Type Diagnosis Age At Onset No Information Payers Payer name Insurance type Covered libertarian ID Authorjona shlomo(s) [facility] [id number] Social History Type Description Quantity Date Captured [...]
--- OUTSIDE RECORDS SUMMARY | 2024-06-09 16:08 | XMS_ITS | Clinical Summary ---
Author Organization [facility] Address [address] [place] [address] Care Team Providers Care Splitter Hand Name Role Phone Louie Gee MD Unavailable [...] tolerance 10/03/2023 Coronary artery disease invo lving [place] coronary artery of [place] heart 10/02/2023 Hypertension, essential 10/02/2023 Tobacco dependence [...] this topic Medical Devices Implanted Type Area Child Daycare Worker Device Identifier Shelf Expiration Date Model / Serial / Lot [employer] Stent Drug Eluting S Megatron Us Mr [id number] - S0 - [id number] Implanted:Qty : 1 on 10/01/2023 by Louie Gee MD at [facility] Stent N/A: Coronary [employer] 01/03/2025 [id number] / 0 / [id number] [employer] Stent Drug Eluting S Megatron Us Mr [id number] - S0 - [id number] Implanted:Qty : 1 on 10/01/2023 by Louie Gee MD at [facility] Stent N/A: Coronary [employer] 01/17/2025 [id number] / 0 / [id number] [employer] System Closure Repair Femoral Artery Suture Mediated Perclose Prostyle [id number] - S0 - [id number] Implanted:Qty : 1 on 10/01/2023 by Louie Gee MD at [facility] Vascular Closure Device Right: Femoral [employer] 06/28/2025 [id number] / 0 / [id number] Insurance [facility] FEDERAL Advance Directives For more information, please contact: [phone] * Full Code (Latest Code Status on File) Date Activated Date Inactivated Comments 10/01/2023 6:37 PM 10/03/2023 3:50 PM Care Teams Splitter Hand Relationship Specialty Start Date End Date Rusty Ramsey MD [address] [facility] [address] [place] [address] PCP - General Family Medicine 11/09/23 Louie Gee MD [address] [facility] [address] [place] [address] Consulting Physician Cardiology 10/03/23
--- OUTSIDE RECORDS SUMMARY | 2024-06-09 16:08 | XMS_ITS | Continuity of Care Document ---
Author Organization [facility] Address [address] [place] [address] Phone Care Team Providers Care Smoke Tester Name Role Phone Rusty Ramsey MD Unavailable [...] No Longer Active Procedures Procedure Date OFFICE [id number] BODY MASS INDEX DOCD SYST BP LT 130 MM HG DIAST BP < 80 MM HG FALL RISK ASSESSMENT DOC'D PRES/ABSN URINE INCON ASSESS PREVENTATIVE-NEW: 40-64 Aug-29-2024 BODY MASS INDEX DOCD SYST BP LT 130 MM HG DIAST BP 80-89 MM HG CBC, INC PLATELETS AND DIFFERENTIAL COMPREHEN METABOLIC PANEL [facility] 4 ROUTINE VENIPUNCTURE OFFICE [id number] BODY MASS INDEX DOCD SYST BP GE 130 - 139MM HG DIAST BP 80-89 MM HG COMPREHEN METABOLIC PANEL CMP 3 ROUTINE VENIPUNCTURE OFFICE [id number] BODY MASS INDEX DOCD SYST BP GE 130 - 139MM HG DIAST BP < 80 MM HG OFFICE CAOMY-GQX-[id number] BODY MASS INDEX DOCD SYST BP >= 140 MM HG6 IT DIAST BP < 80 MM HG Pt inelig neg scrn depres CBC, INC PLATELETS, NO DIFFERENTIAL COMPREHEN METABOLIC PANEL [facility] 3 HEMOGLOBIN A1C HGA1C, GLYCO LIPID PANEL PSA, TOTAL THYROID STIMULATION HORMONE(TSH) 2022 VITAMIN B12 (SERUM) ROUTINE VENIPUNCTURE OFFICE [id number]-GKR-[id number] BODY MASS [facility]DEX [facility] >= 140 MM HG6 IT DIAST BP >= 90 MM HG OFFICE NMWRK-YYA-RZZNJPHS BODY MASS INDEX DOCD SYST BP >= 140 MM HG6 IT DIAST BP >= 90 MM HG OFFICE XCIKB-COE-LFQIMCIQ BODY MASS INDEX DOCD SYST BP >= 140 MM HG6 IT DIAST BP 80-89 MM HG BASIC METABOLIC PANEL(BMP) ROUTINE VENIPUNCTURE Pt inelig neg scrn depres [facility] PANEL HEMOGLOBIN A1C HGA1C, GLYCO LIPID PANEL PSA, TOTAL ROUTINE VENIPUNCTURE URINALYSIS, DIPSTICK (UA) - Office Lab A OFFICE [id number] BODY MASS INDEX DOCD SYST BP >= [...] Diagnoses Date Provider Providers Copied on Encounter [facility], [address], [place], [place], [address] , [place] tel:[phone] [facility] No Information [address] [place] [address], [address], [place], [place], [address], [place]. [phone] OFFICE ARQCY-QEM-IP PANDED Wade Verican, [address], [place], [place], [address] , tel: [phone] [facility] acute problem (chief complaint) Body mass index [BMI] 29.0-29.9, adultShortness of breath [address] [place] [address], [address], [place], [place], [address], . tel:[phone] Referring Provider: Rusty Ramsey, [address] [place] [address], [place], [address] . tel:[phone] DB3 [facility], [address], [place], [place], [address] , [place] tel: [phone] [facility] Shortness of breath 4 Roxy Richard [address] [place] [address], Suite [facility], [place], [place], [address], . tel:[phone] [facility], [address], [place], [place], [address] , tel: [phone] [facility] No Information 4 Roxy Richard [address] [place] [address], [place] [address], [place], [place], [address], [place]. tel:[phone] PREVENTATIVE -NEW: 40-64 [facility], [address], [place], [place], [address] , tel: [phone] [facility] preventive exam (chief complaint)C hronic Conditions (chief complaint) Encounter for general adult medical examination without abnormal findingsAtherosc lerotic heart disease of [place] coronary artery without angina pectorisEssentia l (primary) hypertensionToba senior financial reporting accountant usePersonal history of other infectious and parasitic diseasesBody mass index [BMI] 29.0-29.9, adult 4 R[address] Richard [address] [place] [address], [place] [address], [place], [place], [address], [place]. tel:[phone] Referring Provider: Rusty Ramsey [address] [place] [address], [place], [address] . tel:[phone] OFFICE MPKSU-ZRW-WO [facility], [address], [place], [place], [address] , tel:[phone] [place] Chronic condition. (chief complaint) Body mass index [BMI] 29.0-29.9, axajyN85 deficiencyOSA (obstructive sleep apnea)Primary hypertensionErec tile dysfunction, unspecified erectile dysfunction typeHyperlipidem ia, unspecified hyperlipidemia typeTobacco useBrachial neuritis 3 Harper Jerry. [address] [place] [address], [address], [place], [place], [address], [place]. tel:[phone] Referring Provider: Rosalino Saleem, [address] [place] [address], [place], [address] . tel:[phone] OFFICE YFJMI-YIJ-MV [facility], [address], [place], [place], [address] , [phone] [place] R shoulder pain. (chief complaint) Body mass index [BMI] 28.0-28.9, adultRight shoulder pain, unspecified chronicity 3 Harper Jerry. [address] [place] [address], [address] [facility], [place], [place], [address], [place]. tel:[phone] Referring Provider: Rosalino Saleem, [address] [place] [address], [place], [address] . tel:[phone] OFFICE ORKNL-CUZ-GM [facility], [address], [place], [place], [address] , [phone] [place] follow up bp and sleep study. (chief complaint) Body mass index [BMI] 27.0-27.9, adultPrimary hypertensionOSA (obstructive sleep apnea)B12 deficiencyPain of right shoulder regionErectile dysfunction, unspecified erectile dysfunction type 3 Hai Brannon. [address] [place] [address], [address], [place], [place], [address], [place]. tel:[phone] Referring Provider: Rosalino Saleem, [address] [place] [address] [address] [facility], [place], [address] . tel:[phone] OFFICE EMRDW-FLA-EH TAILED [facility], [address], [place], [place], [address] , tel:[phone] [place] Body mass index [BMI] 28.0-28.9, adultPrimary hypertensionOSA (obstructive sleep apnea)Tobacco useMemory changesDizziness Hyperlipidemia, unspecified hyperlipidemia typeB12 deficiencyScreen ing PSA (prostate specific antigen) 3 Hai Brannon. [address] [place] [address], [place] [address], [place], [place], [address], . tel:[phone] Referring Provider: Rosalino Saleem, [address] [place] [address], [place], [address] . tel:[phone] OFFICE KCOLZ-QVA-YN TAILED [facility], [address], [place], [place], [address] , tel:[phone] [place] BP follow up (chief complaint) Body mass index [BMI] 26.0-26.9, adultPrimary hypertensionHx of sleep apneaSeasonal allergic rhinitis, unspecified trigger Aug-0 2 Hai Brannon. [address] [place] [address], [place] [address], [place], [place], [address], . tel:[phone] Referring Provider: Rosalino Saleem, [address] [place] [address], [place], [address] . tel:[phone] DB3 [facility] Verican, [address], [place], [place], [address] , tel: [phone] [place] No Information 2 Harper Jerry. [address] [place] [address], [place] [address], [place], [place], [address], . tel:[phone] OFFICE CUVVB-FZD-FG TAILED [facility], [address], [place], [place], [address] , tel:[phone] [place] blood pressure follow up (chief complaint) Body mass index [BMI] 25.0-25.9, adultFatigue, unspecified typeHx of sleep apneaPrimary hypertensionToba senior financial reporting accountant useHyperlipidemi a, unspecified hyperlipidemia type 2 Hai Brannon. [facility] [address], [facility] [address], [place], [place], [address], [place]. tel:[phone] Referring Provider: Rosalino Saleem, [address] [place] [address], [place], [address] . tel:[phone] OFFICE FVJTW-NLM-RN MP [facility], [address], [place], [place], [address] , tel:[phone] [place] fatigue, back pain, ED, (chief complaint) Body mass index [BMI] 25.0-25.9, adultHepatitis C virus infection without hepatic coma, unspecified chronicityPrimar y hypertensionHx of sleep apneaEncounter for screening for malignant neoplasm of prostateFatigue, unspecified typeErectile dysfunction, unspecified erectile dysfunction typeBilateral low back pain without sciatica, unspecified chronicityTobacc o use 2 Hai Brannon. [facility] [address] [facility], [place] [address], [place], [place], [address], [place]. tel:[phone] Referring Provider: Rosalino Saleem, [facility] [address] [place] [address], [place], [address] . tel:[phone] PREVENTATIVE -EST: 40-64 [facility], [address], [place], [place], [address] , [place] tel:[phone] [place] PE (chief complaint) Body mass index (BMI) 24.0-24.9, adultAnnual physical examElevated liver enzymesLateral epicondylitis of right elbowCyst of testisEncounter for screening for malignant neoplasm of prostateEncounte r for screening colonoscopyEncou nter for herpes zoster vaccination 0 Harper Jerry. [facility] [address], [place] [address], [place], [place], [address], [place]. tel:[phone] Referring Provider: Rosalino Saleem, [facility] [place] [address], [place], [address] . tel:[phone] [facility], [address], [place], [place], [address] , [place] tel:[phone] [place] left leg numbness around knee area (chief complaint) Body mass index (BMI) 28.0-28.9, adultMeralgia paresthetica of left sideScreening for prostate cancerElevated liver enzymesHyperchol esterolemiaScree nelia for diabetes mellitus 9 Gomez Banks. [address], [address], [place], [place], [address]. tel:[phone] Referring Provider: Rosalino Saleem, [address] [place] [address] [address], [place], [address] . tel:[phone] [facility], [address], [place], [place], [address] , tel: [phone] [place] Body mass index (BMI) 28.0-28.9, adultHerpes zoster without complication 7 [facility]. [address] [place] [address], [facility] [address], [place], [place], [address], . tel:[phone] Referring Provider: Rosalino Saleem, [address] [place] [address], [place], [address] . tel:[phone] [facility], [address], [place], [place], [address] , tel:[phone] [place] Annual physical examElevated LFTsSlow urinary streamSpermatoce le of epididymis, unspecifiedOther hydroceleTobacco use 6 [facility]. [address], [facility] [address], [place], [place], [address], . tel:[phone] Referring Provider: Rosalino Saleem, [facility] [address], [place], [address] . tel:[phone] [facility], [address], [place], [place], [address] , tel:[phone] [place] Mass of scrotumEncounter for screening for malignant neoplasm of prostateEncounte r for screening for diabetes mellitusEncounte r for screening for endocrine disorderScreenin g examination for venereal disease 6 Harper Jerry. [address], [address], [place], [place], [address], [place]. tel:[phone] Referring Provider: Rosalino Saleem, [address], [place], [address] . tel:[phone] [facility], [address], [place], [place], [address] , [place] tel: [phone] [place] Slowing of urinary streamRoutine general medical examination at a health care facilityAbdomina l pain, unspecified siteTobacco abuseScreening for endocrine, nutritional, metabolic anScreening for lipoid disordersRoutine general medical examination at a health care facility 2 Jr Dunlapily. [address], [address], [place], [place], [address], [place]. tel:[phone] Referring Provider: Rosalino Saleem, [address] [facility] [address], [place], [address] . tel:[phone] Family History Family Member Type Diagnosis Age At Onset No Information Immunizations Vaccine Date Status Comments SHINGRIX (Zoster vaccine recombinant, adjuvanted) administered Source: Other R egistry SHINGRIX (Zoster vaccine recombinant, adjuvanted) administered Source: New Imm unization Record Fluzone Quad, preservative free, split virus, 0.5mL dosage administered Source: Other Regist ry Payers Payer name Insurance type Covered green party ID Authoriza tion(s) [facility] ACCESS [id number] [facility] ACCESS [id number] Social History Type Description Quantity Date Captured [...] Bilateral chest ordered Referral Referred To: [address] [place], [place], [id number] Ordered: COLONOSCOPY, Flexible, Proximal To Splenic, Diagnostic, Wor W/O Collection Of Sp ordered Referral Referred To: [id number] [facility]
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 Associated sx include limited ROM. Pt tried [...] attack. Related to Atherosclerotic heart disease of [place] coronary artery without angina pectoris Please continue [...] symptoms. Related to Dizziness Diagnosed while in [facility] per pt report. CPAP is outdated and new one is required. Due to us not having the original sleep study- advised pt to repeat sleep study at [facility]- will send order. Can continue to [...] Advised pt to get eep study - [facility] - pt unable to reproduce testing [...] Check labs today. Sl eep study - [facility] With hx of sleep apnea recommend [...] 25.0-25.9, adult Disease process Pt given Shingles ms danny in office today. F/U as scheduled [...]
--- OUTSIDE RECORDS SUMMARY | 2024-06-09 16:08 | XMS_ITS | Clinical Summary ---
Author Organization [facility] Address [address] [place] [address] Care Team Providers Care Linen Room Custodian Name Role Phone Uzma Haynes MD Primary Care Provider [phone] Encounters Date Type Department Care Team Description 06/08/2024 8:30 AM [facility] Hospital Encounter [facility] [place] [address] Uzma Haynes MD [place], Laura E, SLP Arrived 06/08/2024 8:10 AM [facility] Hospital Encounter [facility] [place] [address] Uzma Haynes MD Arrived 06/08/2024 Travel 05/25/[address] [facility] Mult[facility] [address] [address] Ronny Cheng MD Error 05/16/2024 Transcribe Orders [facility] Pre Access Team [address] [place] [address] Uzma Haynes MD 05/02/2024 1:43 PM BACKEND PYTHON DEVELOPER - 05/02/2024 11:59 PM BACKEND PYTHON DEVELOPER Hospital Encounter [facility] [address] [place] [address] Uzma Haynes MD Discharge Disposition: Home or Self Care (Routine Discharge) 04/26/2024 Transcribe Orders [facility] Pre Access Team [address] [place] [address] Uzma Haynes MD from Last 3 Months Social History Tobacco Use Types Packs/Day Years Used Date Smoking Tobacco: Never Assessed Sex and Gender Information Value Date Recorded Sex Assigned at Male 06/01/2024 2:09 PM CDT Legal Sex Male 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 Gender Identity Not on file Sexual Orientation Not on file Plan of Treatment Health Maintenance Due Date Last Done Comments Colorectal Cancer Screening Colonoscopy (10 Years) 1961 Annual Physical 1964 DTaP, Tdap and Td Vaccines ( 1 - Tdap) 1980 COVID-19 Vaccine (4 - 2023-2 5 season) 2023 12/15/2021, 02/05/2021, 05/09/2020 PHQ-2 (Physician [place]) 03/01/2024 RSV Immunization or 60+ Years (1 - [...] 8:56 AM CDT Dysphagia Abnormal barium swallow XR ESOPHAGRAM/BARIUM SWALLOW Routine 05/02/2024 2:19 PM BACKEND PYTHON DEVELOPER Dysphagia, unspecified from Last 3 Months Results * MATEO - XR SPEECH SWALLOW (06/08/2024 8:56 AM CDT) Anatomical Region Laterality Modality NA Fluoroscopy, Rad iographic Imaging 06/08/2024 3:45 PM CDT Impressions 06/08/2024 3:51 PM CDT IMPRESSION: No laryngeal penetration or aspiration. Refer to report of speech pathologist for further discussion and recommendations. Ordered By: UZMA IVY Interpreted By: Zacarias Mcclure, 06/08/2024 3:45 PM Narrative 06/08/2024 3:[address] PM [address] [address] IMAGING STUDIES: XR SPEECH SWALLOW?MATEO ONLY DATE: 06/08/2024 8:22 AM HISTORY: Dysphagia 63-year-old male. Dysphasia. Patient reports stasis and coughing with almost every meal. Smoker. On esophagram 05/02/2024 at [facility], reported deep laryngeal penetration with thin [...] Procedure Note Zacarias Mcclure MD - 06/08/[address] [address] IMAGING STUDIES: XR SPEECH SWALLOW?MATEO ONLYDATE: 06/08/2024 8:22 AM HISTORY: Dysphagia 63-year-old male. Dysphasia. Patient reports stasisand coughing with almost every meal. Smoker. On esophagram 05/02/2024 at [facility], reported deep laryngeal penetration with thin [...] PM Uzma Haynes MD FLUOROSCOPY Final Result * XR ESOPHAGRAM/BARIUM SWALLOW (05/02/2024 2:19 PM BACKEND PYTHON DEVELOPER) Anatomical Region Laterality Modality Chest, Abdomen Radiographic Hina ging, Radiographic Imaging 05/02/2024 3:10 PM BACKEND PYTHON DEVELOPER Impressions 05/02/2024 3:12 PM BACKEND PYTHON DEVELOPER IMPRESSION: 1. No evidence of stricture, dilatation, [...] 05/02/2024 3:10 PM Narrative 05/02/2024 3:12 PM BACKEND PYTHON DEVELOPER [facility] [address] [place] [address] EXAMINATION: DUAL PHASE ESOPHAGRAM EXAM DATE: 05/02/2024 [...] Procedure Note Hai Trinidad MD - 05/02/2024 [facility] [address] [place] [address] EXAMINATION: DUAL PHASE ESOPHAGRAM EXAM DATE: 05/02/2024 [...] Final Result from Last 3 Months Insurance [facility] Care Teams Linen Room Custodian Relationship Specialty Start Date End Date Uzma Haynes MD [address] [place] [address] PCP - General FAMILY PRACTICE 05/02/24
--- OUTSIDE RECORDS SUMMARY | 2024-06-09 16:08 | XMS_ITS | Encounter Summary ---
Author Organization [facility] Address [address] [place] [address] Care Team Providers Care Lead Sewage Plant Operator Name Role Phone Mateusz King MD Primary Care Provider [phone] Encounter Details Date Type Department Care Team (Late st Contact Info) Description 06/08/2024 8:30 AM CDT Hospital Encounter [facility] [place] [address] Mateusz King MD [address] [place] [address] [place] [address] Arrived Social History Tobacco Use Types Packs/Day Years Used Date Smoking Tobacco: Never Assessed Sex and Gender Information Value Date Recorded Sex Assigned at Male 06/01/2024 2:09 PM CDT Legal Sex Male 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 Purpose/Goals: Evaluate Swallow Function II. Subjective: Swallowing history taken from patient . Patient chief complaint/onset: The pt participated in an esophagram last month at [facility] revealing deep penetration of thin liquids, warranting MBS completion. The pt acknowledges that for approximatelythree months he has been experiencing a globus sensation associated with both PO intake and not. This does result in a sensation of stasis with coughing during nearly every meal Medical History: HTN, YANI on CPAP, smoker Previous MBS Study: N/A Current diet/nutrition: Regular solids, thin liquids Residence: Home Pain rating: The pt denies pain this morning. III. Objective: This patient was seen in radiology for video fluroscopic study. The patient was positioned at 90 degrees in a chair in lateral view. The following consistencies were utilized: barium/pudding, barium/cracker, thin barium. Procedure was completed with Dr. Mcclure present. Patient was fully cooperativeand pleasant during the examination. Oral Peripheral Exam: The pt displays subtle tongue deviation to the Rt and Rt lingual weakness. The pt has his natural dentition in good condition. Oral Stage: Mastication of regular solids is timely and thorough. There is mild tongue pumping noted with solidtrials. Bolus control is affected with premature spillover to the valleculae with solids, to the pyriforms with liquids. Palatal closure appears complete. Pharyngeal Stage: Tongue base retraction is good, laryngeal elevation/excursion is fair at best, and epiglottic inversion is mostly complete. Laryngeal vestibule closure is complete with no penetration/aspiration noted at any time. Pharyngeal stripping wave is fair to good with minimal vallecular residue noted with solid trials. UES appears to open adequately. The pt does have noted anterior cervical osteophytes throughout the cervical spine, mild in nature. There is no consistent impedence of bolus flow or affecting epiglottic inversion. There is incidental finding of what appears to be a C3-C4 fusion. The ptdenies any neck pain or changes in neck ROM. IV. Assessment: Mild oropharyngeal phase dysphagia characterized by decreased bolus control, spillover of bolus, decreased laryngeal elevation/excursion, and minimal weakness of pharyngeal stripping wave and minimalvallecular residue. No penetration/aspiration is observed at any time. Noted mild anterior cervical osteophytes and possible fusion of C3-C4. V. Recommendations: Diet: Regular solids Liquids: Thin liquids Head Posture: Neutral Results of Modified Barium Swallow Study are shared with the pt, using still fluoroscopy image to assist in visual aid. The pt states he is being followed by ENT, Dr Villegas, who the pt asked to sendthis report to for review. Consider ongoing evaluation with neurology and/or GI as medically indicated. Thank you very much for this referral. Therapist: ANDREY MASSEY Date: 06/08/24 Time: 9:27 AM documented in this encounter Plan of Treatment Not on file documented as of this encounter Visit Diagnoses Diagnosis Oropharyngeal dysphagia- Primary Dysphagia, oropharyngeal phase documented in this encounter Care Teams Lead Sewage Plant Operator Relationship Specialty Start Date End Date Mateusz King MD [address] [place] [address] PCP - General FAMILY PRACTICE 05/02/24 documented as of this encounter
--- OUTSIDE RECORDS SUMMARY | 2024-06-09 16:08 | XMS_ITS | Clinical Summary ---
Author Organization [facility] Address [address] [place] [address] Care Team Providers Care Spray Painter Name Role Phone CameronRosalino oates Primary Care Provider [phone] Source Comments [facility],non-owned Affiliates and Associated Physician Practices is amultiple site organization consisting of ambulatory clinics and hospital sitesin [place], [place], [place]. This disclosure is being madepursuant to the Care Everywhere program and may not contain all information available regarding this patient. Last updated 17.[facility] Allergies No known active allergies Social History [...] of 2) 08/14/2011 COVID-19 VACCINE (1 - 2023- season) 2023 DEPRESSION SCREENING 03/01/2024 INFLUENZA VACCINE (Season Ended) 2024 Respiratory Syncytial Virus (RSV) Vaccine Pt: or [...] C RNA QUANTITATIVE (08/06/2020 1:23 PM CDT) [facility] Hepatitis C Virus RNA, Quantitative Real Time PCR <15 NOT DETECTED NOT DETECTED IU/mL Fusion Antibodies Hepatitis C Virus RNA, Quantitative Real Time PCR <1.18 NOT DETECTED NOT DETECTED Log IU/mL LORRI Comment: This test was performed using Real-Time Polymerase Chain Reaction. Reportable Range: 15 IU/mL to 100,000,000 IU/mL (1.18 Log IU/mL to 8.00 Log IU/mL). The analytical performance characteristics of this assay have been determined by [employer]. The modifications have not been cleared or approved by the FDA. This assay has been validated pursuant to the CLIA regulations and is used for clinical purposes. For more information on this test, go to: http://education.[employer]/faq/EYA68w6 (This link is being provided for informational/ educational purposes only.) Test Performed at: [facility] [address] [place] [address] [address] JARQUIN DO,MPH 08/06/2020 1:23 PM CDT 08/06/2020 1:25 PM CDT Juarez Gomez McMurray ENTRY LEVEL ACCOUNTANT-ROAD MACHINE OPERATOR LAB - [address] [facility] [employer] [employer] [facility] [id number] [address] from Last 3 Months or Most Recently Relevant to Health Maintenance Care Teams Spray Painter Relationship Specialty Start Date End Date Rosalino Saleem DO [address] [place] [address] PCP - General Family Medicine 01/08/20
[2024-06-09 16:27] LABS: Estimated Glomerular Filt Rate 59
== END 2024-06-09 16:06 | disposition home or self-care (01) ==
PROVIDERS: PCP Family Medicine; Visit Provider Otolaryngology Otolaryngology/Facial Plastic Surgery
DX: J38.00 Paralysis of vocal cords and larynx, unspecified (principal); R49.0 Dysphonia
CPT/HCPCS: 70491; Q9967

== ENCOUNTER 2024-08-24 12:52 | Outpatient (CLI) | payer BC, SELFPAY ==
--- NOTE | 2024-08-24 13:38 | PCRCNOTE ---
Spirometry was completed both sitting and supine
--- NOTE | 2024-08-31 12:59 | P.PCNPFT_ITS ---
PFT Procedure Performed PFT Procedure Performed Spirometry w/o Bronchodil PFT Interpretation DOS: 08/24/2024 REQUESTING: Hamlet Ojeda MD REASON FOR TESTING: Diaphragm paralysis PULMONARY FUNCTION TESTS Results are reliable and reproducible. Repeatability of spirometry FEV1 maneuver pre and post bronchodilator is Grade A. [place]: Andrea Cotton Dust reference equations were used. The patient had spirometry without bronchodilator administration. The 2nd set of values under post measurements are not with bronchodilator but it is in the supine position to evaluate his diaphragmatic paralysis. Spirometry: The upright FEV1 is 1.71 L, 48%, reduced. The upright FVC is 2.32 L, 51%, reduced. The FEV1/FVC ratio is 74%, normal. In the supine position, the FEV1 is 1.13 L, 31% predicted, 34% decrease. In the supine position, the FVC is 1.64 L, 36% predicted, -29%. The FEV1/FVC ratio is 69%, normal. The patient did not perform lung volumes or diffusion capacity. IMPRESSION: Moderately severe decrease in FEV1 and FVC with preserved ratio, no airflow obstruction is observed. There was a significant decrease in values when the patient is in the supine position, suggestive of diaphragmatic paralysis. No lung volumes were performed. Consider sniff testing, fluoroscopy observing the diaphragm with inspiration and expiration. This is the preferred diagnostic test for diaphragmatic weakness or paralysis. Wendy Andrea MD
== END 2024-08-24 12:53 | disposition home or self-care (01) ==
PROVIDERS: PCP Family Medicine
DX: J98.6 Disorders of diaphragm (principal); R94.2 Abnormal results of pulmonary function studies
CPT/HCPCS: 94010